=== PATIENT | male | born 1950 | race Caucasian/White ===

== ENCOUNTER 2023-12-30 01:58 | Inpatient (IN) | payer MEDICARE, OTHER, SELFPAY ==
[2023-12-29 19:48] VITALS: BP 102/70
[2023-12-29 20:41] VITALS: BMI 31.2
[2023-12-29 21:10] LABS: % Basophils 0.4 % (0-2); % Eosinophils 0.5 % (0-6); % Immature Granulocytes 0.4 % (0-0.5); % Lymphocytes 11.9 % (20.5-51.1); % Monocytes 8.4 % (1.7-9.3); % Neutrophils 78.4 % (42.2-75.2); Absolute Basophils 0.1 10^3/uL (0-0.2); Absolute Eosinophils 0.1 10^3/uL (0-0.7); Absolute Immature Granulocytes 0.1 10^3/uL (0-0.05); Absolute Lymphocytes 1.4 10^3/uL (1.2-3.4); Absolute Neutrophils 9.1 10^3/uL (1.4-6.5); Hematocrit 42.1 % (39.0-52.0); Mean Corp Hgb Conc. 35.6 g/dL (33.0-37.0); Mean Corpuscular Volume 81.3 fL (80.0-94.0); Mean Platelet Volume 9.1 fL (7.4-10.4); Nucleated Red Blood Cells % 0 % (-); Platelet Count 164 10^3/uL (130-400); Red Blood Cell Count 5.18 10^6/uL (4.70-6.10); Red Cell Dist. Width 13.5 % (11.5-14.5); White Blood Cell Count 11.6 10^3/uL (4.8-10.8)
[2023-12-29 21:25] LABS: ALT (SGPT) 13 U/L (0-50); AST (SGOT) 18 U/L (17-59); Albumin 4.7 g/dl (3.5-5.0); Alkaline Phosphatase 62 U/L (38-126); Blood Urea Nitrogen 18 mg/dl (9-20); Calcium 9.7 mg/dl (8.4-10.2); Carbon Dioxide 24 mmol/L (22-30); Chloride 99 mmol/L (98-107); Estimated Creatinine Clearance 95 ml/min; Glucose 103 mg/dl (70-99); Lipase 27 U/L (23-300); Potassium 3.8 mmol/L (3.5-5.1); Sodium 133 mmol/L (135-145); Total Bilirubin 5.9 mg/dl (0.2-1.3); Total Protein 7.4 g/dl (6.3-8.2); eGFR > 60.00
[2023-12-29 21:51] LABS: Urine Albumin Trace (Neg - Trace); Urine Bilirubin 1+ (Negative); Urine Character Clear (Clear); Urine Color Amber; Urine Glucose Negative (Negative); Urine Ketone 2+ (Negative); Urine Leukocyte Negative (Negative); Urine Nitrite Negative (Negative); Urine Occult Blood 3+ (Negative); Urine Urobilinogen Negative (Neg - 1+)
[2023-12-29 22:00] VITALS: BP 138/70
--- NOTE | 2023-12-29 22:00 | ED.GENMED ---
History of Present Illness
<Juvenal Luciano DO - Last Filed: 12/31/23 10:31>
General
Chief Complaint: Abdominal Pain
Source: patient and spouse
Exam Limitations: none
Time Seen by Provider: 12/29/23 21:10
Nursing documentation reviewed up to this point in time: agreed with
History of Present Illness
History of Present Illness:
72-year-old male presents emergency department complaining 3 to 4 days left lower quadrant abdominal pain, feeling similar to his diverticulitis. He started taking amoxicillin to treat an infection. He had some leftover.
Past History
<Juvenal Luciano DO - Last Filed: 12/31/23 10:31>
Past History
ED Past Medical History: HTN; Negative Asthma, Hypercholesterolemia or NIDDM
ED Past Surgical History: Other (Hemorrhoids)
Social History
Tobacco: Non-smoker
Alcohol: Occasional
Drug: None
Personal:
Living: with family
Employment: Employed
Family History
Family History: Other (reviewed and noncontributory)
Review of Systems
<Juvenal Luciano DO - Last Filed: 12/31/23 10:31>
Review of Systems
Allergies reviewed?: Yes
All Other Systems: Not applicable
Constitutional: Reports fever
EENT: Reports no symptoms
Respiratory: Reports no symptoms
Cardiac: Reports no symptoms
ABD/GI: Reports abdominal pain, vomiting and diarrhea
: Reports no symptoms
Musculoskeletal: Reports no symptoms
Skin: Reports no symptoms
Neurological: Reports no symptoms
Endocrine: Reports no symptoms
Hematologic/Lymphatic: Reports no symptoms
Psychiatric: Reports no symptoms
Phy Exam
<Juvenal Luciano DO - Last Filed: 12/31/23 10:31>
Physical Exam
Physical Exam:
Physical Exam
General: Appears uncomfortable, temperature 100.9
Neck: supple. no meningeal signs. normal posterior pharynx
Heart: s1/s2 regular rate and rhythm, no murmur. equal radial
pulses.
HEENT: Pupils equal round reactive to light, EOMI
Lungs: no acute respiratory distress. clear bilaterally
Abdomen: normal bowel sounds. Left lower quadrant tenderness
Neuro: alert and oriented. no focal neurological deficits
Skin: no rash
Psychiatric: well kept. interactive and cooperative
Extremities: no edema. no calf tenderness. negative homans. good distal pulses
Course
<Juvenal Luciano, DO - Last Filed: 12/31/23 10:31>
Orders/Labs/Results
Orders:
Orders
12/29/23 20:55
CMP [Comprehensive Metabolic Panel] Urgent
Complete Blood Count/With Diff Urgent
Lipase Urgent
12/29/23 21:19
CT Abd/pelvis W Iv Cont Urgent
Comment:
Reason For Exam: LLQ abd pain, fever
12/29/23 21:42
Urinalysis Reflex To Culture Urgent
Date Specimen was Collected: 12/29/23
Time Specimen was Collected: 21:38
Urine Microscopic Reflex Cult Urgent
12/29/23 22:41
Acetaminophen [Tylenol] 650 mg PO NOW STA
Ondansetron Injectable [Zofran] 4 mg IV NOW STA
12/29/23 23:53
Piperacillin/Tazo 4.5 Gram [Zosyn] 4.5 gram in 100 ml IV NOW
12/30/23 01:44
Admit/Transfer Patient As Directed
Co-Sign Provider:
Level of Care: Inpatient admission
Assign to:: Medical/Surgical
Physician / Group: [facility]
Diagnosis: Acute Diverticulitis
Reason for Hospitalization: Acute Diverticulitis
Expected length of stay greater than two midnights?: Yes
ELOS- Estimated Length of Stay in days: 3
I certify the patient meets the requirements for IP care: Yes
PRN Pain Medication Management As Directed
May give lesser potent ordered pain med per pt: Yes
preference::
Protocol:: Medication orders for pain may be administered in a
manner that supports deferring to patient preference
when the pt is:
- Requesting an ordered lesser potent pain medication.
Least to most potent pain medications are defined
as: acetaminophen < NSAID < tramadol < opioids
(morphine, oxycodone, hydromorphone).
- Requesting a lesser dose of the same medication IF
ORDERED.
- Requesting a less intrusive route of administration
if both routes are prescribed by the provider (PO <
IV).
12/30/23 01:46
Code Status As Directed
Resuscitation Status: Full Code
12/30/23 02:44
Acetaminophen [Tylenol] 650 mg PO Q4HPRN PRN
HYDROmorphone [Dilaudid] 0.5 mg IV Q4HPRN PRN
Ketorolac [Toradol] 15 mg IV Q6HPRN PRN
Lactated Ringers [Lr] 1,000 ml IV 100 mls/hr
Ondansetron Injectable [Zofran] 4 mg IV Q6HPRN PRN
12/30/23 02:44
ColoRectal Surgery Consult Routine
Consulting Provider: Shade Oliveira
Was physician already notified: No
Reason for consult: Acute Diverticulitis
Consult Notification Routine
Specialty to Notify: Colorectal Surgery
Date consulting provider notified: 12/30/23
Time consulting provider notified: 07:58
Notified:: Provider
Comment: ANASTASIIA OLIVEIRA
Activity As Directed
Activity Level: Ambulate
With Assistance
Bladder Scan As Directed
Follow Bladder Retention/Intermittent Cath Algorithm?: Yes
PRN if no void in __ hours: 6
Frequency: Per Retention Algorithm
If Bladder Scan Result >: 400
then:: Straight cath
I/O [Intake/ Output] As Directed
Frequency: Per unit guidelines
Pneumatic Compression Sleeves As Directed
Type: Knee high
Straight Cath As Directed
Frequency: Per Retention Algorithm
Additional Instructions: straight cath as needed per acute urinary retention algorithm for 24 hrs
Additional Instructions: for bladder scan greater than 400 mL
Vital Signs As Directed
Frequency: Per unit guidelines
Oxygen Therapy [O2 Therapy] [RESP] Routine
Titrate/Wean O2 to maintain O2 sat greater than (%): 94
DX Deep Vein Thrombosis Video Routine
12/30/23 Breakfast
NPO
Allow oral meds: Yes
Allow clear liquids: Sips of Clears
Piperacillin/Tazo 3.375 Gram [Zosyn] 3.375 gram in 50 ml IV Q6H
12/30/23 08:00
Amlodipine [Norvasc] 5 mg PO DAILY
Atorvastatin [Lipitor] 10 mg PO DAILY
Levothyroxine [Synthroid] 137 mcg PO DAILY
Losartan [Cozaar] 75 mg PO DAILY
Prednisone [Deltasone] 7.5 mg PO DAILY
12/30/23 11:10
Basic Metabolic Panel IN AM
Complete Blood Count/No Diff IN AM
12/30/23 18:00
Enoxaparin Sodium [Lovenox] 40 mg SC QPM
Abnormal Lab Results
12/29/23 12/29/23
20:55 21:42
WBC 11.6 H 10^3/uL
(4.8-10.8)
Abs Immat Gran (auto) 0.1 H 10^3/uL
(0-0.05)
Absolute Neuts (auto) 9.1 H 10^3/uL
(1.4-6.5)
Absolute Monos (auto) 1.0 H 10^3/uL
(0.1-0.6)
Neutrophils % 78.4 H %
(42.2-75.2)
Lymphocytes % 11.9 L %
(20.5-51.1)
Sodium 133 L mmol/L
(135-145)
Glucose 103 H mg/dl
(70-99)
Total Bilirubin 5.9 H mg/dl
(0.2-1.3)
Urine Ketones 2+ A
(Negative)
Ur Occult Blood Reflex 3+ A
(Negative)
Urine Bilirubin 1+ A
(Negative)
12/29/23 20:55
12/29/23 20:55
Vital Signs
Initial and Last Documented VS:
Initial Vital Signs
Temp Pulse Resp BP Pulse Ox
100.9 F H 84 24 102/70 97
12/29/23 19:48 12/29/23 19:48 12/29/23 19:48 12/29/23 19:48 12/29/23 19:48
Last Documented Vital Signs
Temp Pulse Resp BP Pulse Ox
99.4 F 81 18 137/78 94
12/31/23 07:44 12/31/23 07:44 12/31/23 07:44 12/31/23 07:44 12/31/23 07:44
Rolalt;Star Tomlinson, DO - Last Filed: 12/30/23 07:03>
Orders/Labs/Results
Orders:
Orders
12/29/23 20:55
CMP [Comprehensive Metabolic Panel] Urgent
Complete Blood Count/With Diff Urgent
Lipase Urgent
12/29/23 21:19
CT Abd/pelvis W Iv Cont Urgent
Comment:
Reason For Exam: LLQ abd pain, fever
12/29/23 21:42
Urinalysis Reflex To Culture Urgent
Date Specimen was Collected: 12/29/23
Time Specimen was Collected: 21:38
Urine Microscopic Reflex Cult Urgent
12/29/23 22:41
Acetaminophen [Tylenol] 650 mg PO NOW STA
Ondansetron Injectable [Zofran] 4 mg IV NOW STA
12/29/23 23:53
Piperacillin/Tazo 4.5 Gram [Zosyn] 4.5 gram in 100 ml IV NOW
12/30/23 01:44
Admit/Transfer Patient As Directed
Co-Sign Provider:
Level of Care: Inpatient admission
Assign to:: Medical/Surgical
Physician / Group: [facility]
Diagnosis: Acute Diverticulitis
Reason for Hospitalization: Acute Diverticulitis
Expected length of stay greater than two midnights?: Yes
ELOS- Estimated Length of Stay in days: 3
I certify the patient meets the requirements for IP care: Yes
PRN Pain Medication Management As Directed
May give lesser potent ordered pain med per pt: Yes
preference::
Protocol:: Medication orders for pain may be administered in a
manner that supports deferring to patient preference
when the pt is:
- Requesting an ordered lesser potent pain medication.
Least to most potent pain medications are defined
as: acetaminophen < NSAID < tramadol < opioids
(morphine, oxycodone, hydromorphone).
- Requesting a lesser dose of the same medication IF
ORDERED.
- Requesting a less intrusive route of administration
if both routes are prescribed by the provider (PO <
IV).
12/30/23 01:46
Code Status As Directed
Resuscitation Status: Full Code
12/30/23 02:44
Acetaminophen [Tylenol] 650 mg PO Q4HPRN PRN
HYDROmorphone [Dilaudid] 0.5 mg IV Q4HPRN PRN
Ketorolac [Toradol] 15 mg IV Q6HPRN PRN
Lactated Ringers [Lr] 1,000 ml IV 100 mls/hr
Ondansetron Injectable [Zofran] 4 mg IV Q6HPRN PRN
12/30/23 02:44
ColoRectal Surgery Consult Routine
Consulting Provider: Shade Oliveira
Was physician already notified: No
Reason for consult: Acute Diverticulitis
Consult Notification Routine
Specialty to Notify: Colorectal Surgery
Date consulting provider notified: 12/30/23
Time consulting provider notified: 07:58
Notified:: Provider
Comment: ANASTASIIA OLIVEIRA
Activity As Directed
Activity Level: Ambulate
With Assistance
Bladder Scan As Directed
Follow Bladder Retention/Intermittent Cath Algorithm?: Yes
PRN if no void in __ hours: 6
Frequency: Per Retention Algorithm
If Bladder Scan Result >: 400
then:: Straight cath
I/O [Intake/ Output] As Directed
Frequency: Per unit guidelines
Pneumatic Compression Sleeves As Directed
Type: Knee high
Straight Cath As Directed
Frequency: Per Retention Algorithm
Additional Instructions: straight cath as needed per acute urinary retention algorithm for 24 hrs
Additional Instructions: for bladder scan greater than 400 mL
Vital Signs As Directed
Frequency: Per unit guidelines
Oxygen Therapy [O2 Therapy] [RESP] Routine
Titrate/Wean O2 to maintain O2 sat greater than (%): 94
DX Deep Vein Thrombosis Video Routine
12/30/23 Breakfast
NPO
Allow oral meds: Yes
Allow clear liquids: Sips of Clears
Piperacillin/Tazo 3.375 Gram [Zosyn] 3.375 gram in 50 ml IV Q6H
12/30/23 08:00
Amlodipine [Norvasc] 5 mg PO DAILY
Atorvastatin [Lipitor] 10 mg PO DAILY
Levothyroxine [Synthroid] 137 mcg PO DAILY
Losartan [Cozaar] 75 mg PO DAILY
Prednisone [Deltasone] 7.5 mg PO DAILY
12/30/23 11:10
Basic Metabolic Panel IN AM
Complete Blood Count/No Diff IN AM
12/30/23 18:00
Enoxaparin Sodium [Lovenox] 40 mg SC QPM
Abnormal Lab Results
12/29/23 12/29/23
20:55 21:42
WBC 11.6 H 10^3/uL
(4.8-10.8)
Abs Immat Gran (auto) 0.1 H 10^3/uL
(0-0.05)
Absolute Neuts (auto) 9.1 H 10^3/uL
(1.4-6.5)
Absolute Monos (auto) 1.0 H 10^3/uL
(0.1-0.6)
Neutrophils % 78.4 H %
(42.2-75.2)
Lymphocytes % 11.9 L %
(20.5-51.1)
Sodium 133 L mmol/L
(135-145)
Glucose 103 H mg/dl
(70-99)
Total Bilirubin 5.9 H mg/dl
(0.2-1.3)
Urine Ketones 2+ A
(Negative)
Ur Occult Blood Reflex 3+ A
(Negative)
Urine Bilirubin 1+ A
(Negative)
12/29/23 20:55
12/29/23 20:55
Vital Signs
Initial and Last Documented VS:
Initial Vital Signs
Temp Pulse Resp BP Pulse Ox
100.9 F H 84 24 102/70 97
12/29/23 19:48 12/29/23 19:48 12/29/23 19:48 12/29/23 19:48 12/29/23 19:48
Last Documented Vital Signs
Temp Pulse Resp BP Pulse Ox
99.4 F 81 18 137/78 94
12/31/23 07:44 12/31/23 07:44 12/31/23 07:44 12/31/23 07:44 12/31/23 07:44
<Juvenal Luciano, DO - Last Filed: 12/31/23 10:31>
MDM/Problems Addressed
Differential Diagnosis Includes:
Diverticulitis, bowel perforation
MDM/Problems Addressed:
73-year-old male with acute sigmoid diverticulitis with perforation, but no abscess. 5 cm AAA.
Chronic conditions affecting care: Other (Diverticulosis)
Acute Exacerbation and/or Progression of Chronic Illness: Other (Diverticulitis)
<Juvenal Luciano, DO - Last Filed: 12/31/23 10:31>
*Radiology
Radiology exam reviewed: radiology read reviewed (CT abdomen pelvis shows acute sigmoid diverticulitis with perforation but no abscess, infrarenal AAA 5 cm)
*Pulse Oximetry
Patient hypoxic: no
*EKG
Interpreted by ED Provider?: NA
*Automobile Lights Assembler Interpretation
Rate: Automobile Lights Assembler- N/A
<Star Tomlinson, DO - Last Filed: 12/30/23 07:03>
*Critical Care Note
Total Time (30-74mins, 75-104mins- exclusive of procedures): Not Applicable
<Juvenal Luciano, DO - Last Filed: 12/31/23 10:31>
Patient Management
Social determinants of health affecting care: Living situation
Discussion with other providers: Hospitalist
Escalation/DeEscalation of care consider admission/obs:
Admit indicated
<Star Tomlinson DO - Last Filed: 12/30/23 07:03>
Update Note
Update Note:
CT A/P
IMPRESSION:
Within the limitation of extensive motion artifact:
Acute sigmoid diverticulitis, with extensive associated inflammatory stranding and edema. Localized foci of free air along the inflamed diverticula is consistent with associated microperforations (204: 31).
No evidence of more disseminated free air seen elsewhere. No evidence of a focal organized rim-enhancing fluid collection.
Diffusely fluid for loops of large bowel may represent a super mposed component of colitis as well.
Interval increase in size of a now 5.3 cm infrarenal abdominal aortic aneurysm with eccentric mural thrombus (previously 5 cm on 03/23/2023). Follow-up with vascular surgery is recommended.
Additional findings: Right hip arthroplasty. Vascular calcifications including coronary artery calcifications. DJD. Left renal calculus.
ED Attending Note
<Juvenal Luciano, DO - Last Filed: 12/31/23 10:31>
-
Portions of this chart may have been created with voice recognition software.� Occasional wrong word or��sound alike� substitutions may have occurred due to the inherent limitations of voice recognition software.
Discharge Plan
Departure
Patient Disposition: Admit
Date of Disposition: 12/29/23
Time of Disposition: 23:53
Presentation/result/management discussed w/ accepting MD/DO: Hospitalist
Patient with high blood pressure during this ER visit?: Yes
Discharge Problem:
Diverticulitis, Enlarging abdominal aortic aneurysm
Interventions
Interventions:
*Risk Screen - Suicide Last Done: 12/29/23 19:48
*General Assessment Last Done: 12/29/23 20:41
*Neglect/Abuse Screening Last Done: 12/29/23 19:48
ED- Fall Risk Assessment Last Done: 12/29/23 20:42
*ED COVID-19 Vaccine History Last Done: 12/29/23 20:41
*Nursing Disposition Last Done: 12/30/23 02:40
QV-Ksgyrj-Gbwcykyrxe Assessment Last Done: 12/29/23 20:42
Discharge Date and Time
Discharge Date/Time: 12/30/23 02:40
[2023-12-29 22:01] LABS: Urine Red Blood Cell 0-2 /HPF (0-2); Urine White Cell 0-2 /HPF (0-5)
[2023-12-29] MEDS: TYLENOL 650 MG PO (22:54)
[2023-12-29] MEDS: ZOFRAN 4 MG IV (22:54)
[2023-12-29 23:00] VITALS: BP 112/60
[2023-12-30] VITALS: BP 125/77
[2023-12-30] MEDS: ZOSYN 100 IV (00:03)
--- NOTE | 2023-12-30 01:48 | HPS.HSE ---
Family Physician
-
Family Physician: Dale Lr
Chief Complaint
-
Abd Pain
History of Present Illness
Patient is a 73y M with PMH significant for malignant melanoma s/p immunotherapy who presents to ED complaining of abdominal pain. Patient reports about 3-5 days of lower / middle abdominal pain. His symptoms are associated with nausea and a
single episode of emesis yesterday. He has been having some loose, non-bloody stools today. He feels 'terrible' and achy all over. Patient notes that he has been eating a lot of blueberries lately. No other significant changes in medication or
diet.
Patient has a prior history of diverticulitis and notes that his current symptoms feel similar.
Medical History
Past Medical History
Past Medical History: Reports Other
Additional Past Medical History:
Malignant Melanoma s/p Excision and Immunotherapy
Hypertension
Adrenal Insufficiency
Hypothyroidism
ZE
Gilbert's / Elevated Bilirubin
Past Surgical History: Reports Other
Additional Past Surgical History:
Neck Dissection / Melanoma Excision
Left Quadriceps Repair
R PHYLLIS
Social History
Tobacco: Non-smoker
Alcohol: None
Drug: None
Family History
Family History: Not pertinent
Allergies / Home Medications
Allergies reflects when Allergies were last updated in [facility].
Home Medications with original date entered in [facility]
Allergy/Medication List:
Allergies
Allergy/AdvReac Type Severity Reaction Status Date / Time
lisinopril AdvReac COUGH Verified 12/29/23 19:52
Home Medications
atorvastatin 10 mg tablet 10 mg PO DAILY High cholesterol 03/14/21
prednisone 5 mg tablet 7.5 mg PO DAILY Anti-Inflammatory 03/23/23
levothyroxine 125 mcg tablet 125 mcg PO DAILY Thyroid 04/16/23
mupirocin 2 % topical ointment 1 applic intranasal BID #1 tube 04/22/23
amlodipine 5 mg tablet 5 mg PO DAILY Blood pressure #0 tabs 05/17/23
losartan 50 mg tablet 75 mg (1.5 x 50 mg) PO DAILY Blood Pressure #0 tabs 05/17/23
pantoprazole 40 mg tablet,delayed release 40 mg PO DAILY #30 tabs 05/17/23
levothyroxine 137 mcg tablet 137 mcg PO DAILY 12/29/23
losartan 50 mg tablet 75 mg PO DAILY 12/29/23
If medication reconciliation has not been performed, why?: Medication List N/A (Patient is unable to fully reconcile all meds. Knows names / doses of his hormonal supplements.)
Review of Systems
-
History Source: Patient
A 12 point ROS was completed and negative except as noted: Yes
Constitutional: Reports Fever, Fatigue and Chills
EENT: Denies Sore Throat
Respiratory: Denies Cough or Trouble Breathing
Cardiac: Denies Chest Pain or Palpitations
Abdomen/GI: Reports Abdominal Pain, Nausea, Vomiting, Diarrhea and Anorexia; Denies Constipated, Bloody Stools or Black Stools
: Denies Dysuria, Frequency or Flank Pain
Musculoskeletal: Denies Joint Pain or Edema
Neurological: Denies Dizzy or Headache
Psych: Denies Depression or Anxiety
Physical Exam
Vital Signs
Vital Signs
Temp Pulse Resp BP Pulse Ox
100.3 F 73 18 112/60 94
12/29/23 23:00 12/29/23 23:00 12/29/23 23:00 12/29/23 23:00 12/29/23 23:45
Physical Exam
General: Other (73y M in mild distress due to pain.)
HEENT: Other (Dry MM. Neck supple.)
Respiratory: Clear; No Wheezes, Rales or Rhonchi
Cardiac: S1/S2 and Regular Rhythm; No Murmur
GI: Other (Obese, pos BS. Significant tenderness lower mid abdomen / suprapubic region.)
Musculoskeletal: No Clubbing, No Cyanosis and No Edema
Neuro: AO x 3
Laboratory Results
-
12/29/23 20:55
12/29/23 20:55
Laboratory Results
Total Bilirubin 5.9 mg/dl (0.2-1.3) H 12/29/23 20:55
AST 18 U/L (17-59) 12/29/23 20:55
ALT 13 U/L (0-50) 12/29/23 20:55
Alkaline Phosphatase 62 U/L (38-126) 12/29/23 20:55
Lipase 27 U/L (23-300) 12/29/23 20:55
Impression/Plan
-
A/P: Patient is a 73y M with PMH significant for malignant melanoma in remission and prior diverticulitis who presents to ED complaining of abdominal pain.
Acute Sigmoid Diverticulitis
- Admit for further evaluation and treatment.
- CT scan reveals evidence of local microperf, etc.
- IV abx with Zosyn for now.
- IVFs, pain control, supportive care.
- Colorectal Surgery evaluation for additional recommendations.
- Follow for any new / worsening symptoms.
Adrenal Insufficiency
- Reportedly secondary to immunotherapy / cancer treatment.
- Continue current prednisone replacement dosing for now.
- Consider brief stress dosing of steroids if any hemodynamic issues during hospital stay.
Hypothyroidism
- Continue current T4 replacement.
Benign Hypertension
- Stable. Continue OP medications and adjust as needed fo BP control.
Malignant Melanoma - In Remission
- s/p excision / neck dissection and immunotherapy.
- No longer on active treatment.
- No acute / active issues.
DVT Prophylaxis: Lovenox
Code Status: Full
[2023-12-30 03:06] VITALS: BP 128/74; BMI 30.2
[2023-12-30] MEDS: ZOFRAN 4 MG IV ×4 (03:11→22:35)
[2023-12-30] MEDS: LR 1000 IV ×2 (03:11→13:56)
[2023-12-30] MEDS: DILAUDID 0.5 MG IV ×3 (03:11→11:55)
--- NOTE | 2023-12-30 03:44 | PTCARENOTE ---
Pt arrived to floor via stretcher from the ED. Pt AAOx3, pt able to ambulate with assist to standing scale and into room. Pt reports severe abd pain 8/10, once laying in bed, pt began to vomit and have uncontrolled liquid stool. Pt cleaned up,
linens changed. PRN medications administered as ordered, see MAR. Left AC int now infusing LR @100ml/hr. Hyper bowel, round tender abd. POX 99% on RA. Lungs clear. HR reg. Palpable peripheral pulses present. Call castañeda in reach. Pt instructed to ring
call castañeda for assistance. Knee high seq in place. Will continue to monitor.
[2023-12-30] MEDS: ZOSYN 50 IV ×4 (05:26→23:22)
--- NOTE | 2023-12-30 06:24 | PTCARENOTE ---
Pt ambulatory to bathroom when needed. Pt has urgency and severe abd pain prior to needing to move bowels, pt has very little time to get to bathroom. Pt reports once settled back in bed, pain feels better. IVF infusing as ordered. will continue to
monitor.
[2023-12-30] MEDS: NORVASC 5 MG PO (07:53)
[2023-12-30] MEDS: LIPITOR 10 MG PO (07:53)
[2023-12-30] MEDS: DELTASONE 7.5 MG PO (07:53)
[2023-12-30] MEDS: COZAAR 75 MG PO (07:54)
[2023-12-30] MEDS: SYNTHROID 137 MCG PO (07:54)
[2023-12-30 08:10] VITALS: BP 126/65
--- NOTE | 2023-12-30 08:55 | W.PN.HOSP.TC ---
Today's Communication/Plan
-
Continue IV antibiotics.
Assessment / Plan
Assessment / Plan
Physical exam:
General: Acutely ill
HEENT: Normocephalic, Atraumatic and Moist Mucous Membranes
Respiratory: Clear to Auscultation; Negative Wheezes, Rales or Rhonchi
Cardiac: Regular Rhythm and S1/S2
GI: Soft, Tender and Nondistended
Musculoskeletal: No Clubbing, No Cyanosis and No Edema
Neuro: Awake, Alert and Oriented, no gross neuro-deficits
Psych: Calm
A/P:
Acute Sigmoid Diverticulitis
- Admit for further evaluation and treatment.
- CT scan reveals evidence of local microperf, etc.
- IV abx with Zosyn for now.
- IVFs, pain control, supportive care.
- Colorectal Surgery evaluation for additional recommendations. CRS evaluated the patient and appreciated input.
- Follow for any new / worsening symptoms. Keep him n.p.o. for now.
Adrenal Insufficiency
- Reportedly secondary to immunotherapy / cancer treatment.
- Continue current prednisone replacement dosing for now.
- Consider brief stress dosing of steroids if any hemodynamic issues during hospital stay.
Hypothyroidism
- Continue current T4 replacement.
Benign Hypertension
- Stable. Continue OP medications and adjust as needed fo BP control.
Malignant Melanoma - In Remission
- s/p excision / neck dissection and immunotherapy.
- No longer on active treatment.
- No acute / active issues.
DVT Prophylaxis: Lovenox
Code Status: Full
Anticipated Discharge: > 48 hours
Subjective/Interval History
-
Date of Service: December 30, 2023
Patient still having some abdominal discomfort. He had some vomiting earlier. Overall patient feels some improvement. Afebrile today
Objective Data
-
Labs:
Laboratory Results
12/29/23 12/30/23
20:55 06:00
WBC 11.6 H Pending
Hgb 15.0 Pending
Hct 42.1 Pending
Plt Count 164 Pending
Sodium 133 L Pending
Potassium 3.8 Pending
Chloride 99 Pending
Carbon Dioxide 24 Pending
BUN 18 Pending
Creatinine 0.9 Pending
Glucose 103 H Pending
Calcium 9.7 Pending
Total Bilirubin 5.9 H
AST 18
ALT 13
Alkaline Phosphatase 62
Vital Signs:
Vital Signs
Temp Pulse Resp BP Pulse Ox
98.3 F 63 17 126/65 92
12/30/23 08:10 12/30/23 08:10 12/30/23 08:10 12/30/23 08:10 12/30/23 08:10
I&O
12/29/23 12/30/23 12/31/23
06:59 06:59 06:59
Intake Total 450 / 450
Balance 450 / 450
[2023-12-30 11:37] LABS: Hematocrit 41.8 % (39.0-52.0); Hemoglobin 14.8 g/dL (13.0-18.0); Mean Corp Hgb Conc. 35.4 g/dL (33.0-37.0); Mean Corpuscular Hgb 29.4 pg (27.0-31.0); Mean Corpuscular Volume 83.1 fL (80.0-94.0); Mean Platelet Volume 9.7 fL (7.4-10.4); Platelet Count 161 10^3/uL (130-400); Red Blood Cell Count 5.03 10^6/uL (4.70-6.10); Red Cell Dist. Width 13.7 % (11.5-14.5); White Blood Cell Count 14.7 10^3/uL (4.8-10.8)
--- NOTE | 2023-12-30 12:19 | CON.CRS ---
Consultation
-
Reason for Consultation: Diverticulitis
Medical History
-
Chief Complaint: Abdominal pain
History of Present Illness:
73-year-old male admitted to the hospital yesterday with abdominal pain as well as some nausea and 1 bout of emesis. He also admits to some loose BMs. He has a history of diverticulitis and was admitted for this back in March 2023. At that
point time he was seen by Dr. Ross. On my own review of the CT from back then he had distal descending colon diverticulitis with microperforation. He improved with medical measures. He is here with similar symptoms. He admits to left lower
quadrant pain. His white count on admission yesterday was 11.6. It got up to 14.7 today. His current only complaint is pain/discomfort. He did undergo a CT of the abdomen pelvis yesterday of which the images and report available for review. I
reviewed both. Sigmoid diverticulitis is noted with microperforation. In regards to colonoscopies, the patient admits he had a colonoscopy in May of this year by Dr. Cotter of the [facility]. Per the patient it was 'negative
'. Is unclear whether diverticulosis was noted.
Past Medical History
Past Medical History: HTN, Hypothyroidism and Other (Malignant melanoma status post excision and immunotherapy; adrenal insufficiency; Gilbert's syndrome)
Past Surgical History: Other (Melanoma excision with neck dissection; left quadriceps repair; right hip surgery)
Social History
Tobacco: Non-Smoker
Alcohol: None
Family History
Family History: Reviewed & Not Pertinent
Allergies / Home Medications
Allergy/AdvReac Type Severity Reaction Status Date / Time
lisinopril AdvReac COUGH Verified 12/29/23 19:52
�Medication �Instructions �Recorded �Confirmed �Type
atorvastatin 10 mg tablet 10 mg PO DAILY High cholesterol 03/14/21 12/29/23 History
prednisone 5 mg tablet 7.5 mg PO DAILY Anti-Inflammatory 03/23/23 05/17/23 History
celecoxib 100 mg capsule 100 mg PO BID Pain 04/16/23 05/17/23 History
levothyroxine 125 mcg tablet 125 mcg PO DAILY Thyroid 04/16/23 05/17/23 History
mupirocin 2 % topical ointment 1 applic intranasal BID #1 tube 04/22/23 Rx
ondansetron 4 mg disintegrating 4 mg PO Q6H PRN nausea and 04/22/23 Rx
tablet vomiting #30 tabs
oxycodone 5 mg tablet 5 - 10 mg (1 - 2 x 5 mg) PO Q4H 04/22/23 Rx
PRN moderate-severe pain #35 tabs
acetaminophen 500 mg tablet 1,000 mg (2 x 500 mg) PO Q6H #60 05/17/23 Rx
(Tylenol Extra Strength) tabs
amlodipine 5 mg tablet 5 mg PO DAILY Blood pressure #0 05/17/23 12/29/23 Rx
tabs
aspirin 325 mg tablet 325 mg PO DAILY #30 tabs 05/17/23 Rx
docusate sodium 100 mg capsule 100 mg PO BID #30 caps 05/17/23 Rx
hydrocortisone 20 mg tablet 20 mg PO DIRECTED #1 tab 05/17/23 Rx
lidocaine 4 % topical patch 2 patch topical DAILY #30 ea 05/17/23 Rx
losartan 50 mg tablet 75 mg (1.5 x 50 mg) PO DAILY Blood 05/17/23 05/17/23 Rx
Pressure #0 tabs
pantoprazole 40 mg tablet,delayed 40 mg PO DAILY #30 tabs 05/17/23 Rx
release
sennosides 8.6 mg tablet (senna) 17.2 mg (2 x 8.6 mg) PO BID #30 05/17/23 Rx
tabs
levothyroxine 137 mcg tablet 137 mcg PO DAILY 12/29/23 12/29/23 History
losartan 50 mg tablet 75 mg PO DAILY 12/29/23 12/29/23 History
Review of Systems
-
A 10 point review of systems was completed, and was negative except as per HPI.
Physical Exam
Vital Signs
Temp 98.3 F 12/30/23 08:10
Pulse 63 12/30/23 08:10
Resp Rate 17 12/30/23 08:10
Blood pressure 126/65 12/30/23 08:10
SaO2 92 12/30/23 08:10
12/29/23 12/30/23 12/31/23
06:59 06:59 06:59
Actual Weight 100.924 kg
Body Mass Index (BMI) 30.2
Lab Results / Allergies
12/30/23 11:10
WBC 14.7 10^3/uL (4.8-10.8) H 12/30/23 11:10
Hgb 14.8 g/dL (13.0-18.0) 12/30/23 11:10
Hct 41.8 % (39.0-52.0) 12/30/23 11:10
Plt Count 161 10^3/uL (130-400) 12/30/23 11:10
Abs Immat Gran (auto) 0.1 10^3/uL (0-0.05) H 12/29/23 20:55
Neutrophils % 78.4 % (42.2-75.2) H 12/29/23 20:55
Allergy/AdvReac Type Severity Reaction Status Date / Time
lisinopril AdvReac COUGH Verified 12/29/23 19:52
Physical Exam
General: Well Developed
Respiratory: Clear
Cardiac: Regular Rhythm
GI: Non Distended and Tender (Lower abdominal without guarding or rebound)
Data Reviewed
-
CT Scan: Image Personally Visualized and interpreted, Report Reviewed by me and Discussed with Patient
Labs: Labs Reviewed by me and Discussed with Patient
Assessment / Plan
-
73-year-old male with second episode of diverticulitis with microperforation. Interestingly his prior attack was in the distal descending whereas this attack is more sigmoid. He is tender on exam but does not have a surgical abdomen. I am hoping
he can get through this hospitalization without urgent surgery. Discussed situation with the patient in detail. Recommended aggressive medical measures as is being performed including IV hydration, diet restriction, and IV antibiotics. Will
follow along closely.
Thanks.
[2023-12-30 12:53] LABS: Blood Urea Nitrogen 20 mg/dl (9-20); Calcium 9.3 mg/dl (8.4-10.2); Carbon Dioxide 20 mmol/L (22-30); Chloride 100 mmol/L (98-107); Estimated Creatinine Clearance 104 ml/min; Glucose 90 mg/dl (70-99); Potassium 3.6 mmol/L (3.5-5.1); Sodium 131 mmol/L (135-145); eGFR > 60.00
[2023-12-30 15:37] VITALS: BP 101/60
[2023-12-30] MEDS: TORADOL 15 MG IV ×2 (17:03→23:21)
[2023-12-30] MEDS: LOVENOX 40 MG SC (17:04)
[2023-12-30 19:50] LABS: Hepatitis C Antibody Negative (Negative)
[2023-12-30 23:05] VITALS: BP 137/79
[2023-12-31] MEDS: LR 1000 IV ×3 (01:12→20:47)
[2023-12-31] MEDS: ZOSYN 50 IV ×4 (06:10→23:35)
[2023-12-31] MEDS: DILAUDID 0.5 MG IV ×3 (06:41→17:55)
[2023-12-31 06:42] LABS: % Basophils 0.4 % (0-2); % Eosinophils 0.8 % (0-6); % Immature Granulocytes 0.3 % (0-0.5); % Lymphocytes 7.9 % (20.5-51.1); % Monocytes 8.5 % (1.7-9.3); % Neutrophils 82.1 % (42.2-75.2); Absolute Eosinophils 0.1 10^3/uL (0-0.7); Absolute Lymphocytes 0.9 10^3/uL (1.2-3.4); Absolute Neutrophils 9.2 10^3/uL (1.4-6.5); Hematocrit 38.9 % (39.0-52.0); Mean Corpuscular Hgb 29.8 pg (27.0-31.0); Mean Corpuscular Volume 82.8 fL (80.0-94.0); Mean Platelet Volume 9.4 fL (7.4-10.4); Nucleated Red Blood Cells % 0 % (-); Platelet Count 144 10^3/uL (130-400); Red Cell Dist. Width 13.4 % (11.5-14.5); White Blood Cell Count 11.2 10^3/uL (4.8-10.8)
[2023-12-31 07:12] LABS: Blood Urea Nitrogen 27 mg/dl (9-20); Calcium 9.4 mg/dl (8.4-10.2); Carbon Dioxide 22 mmol/L (22-30); Chloride 99 mmol/L (98-107); Estimated Creatinine Clearance 93 ml/min; Glucose 96 mg/dl (70-99); Potassium 3.4 mmol/L (3.5-5.1); Sodium 131 mmol/L (135-145); eGFR > 60.00
[2023-12-31] MEDS: DELTASONE 7.5 MG PO (07:24)
[2023-12-31] MEDS: SYNTHROID 137 MCG PO (07:24)
[2023-12-31] MEDS: NORVASC 5 MG PO (07:25)
[2023-12-31] MEDS: COZAAR 75 MG PO (07:25)
[2023-12-31] MEDS: LIPITOR 10 MG PO (07:25)
[2023-12-31 07:44] VITALS: BP 137/78
--- NOTE | 2023-12-31 10:34 | W.PN.HOSP.TC ---
Addendum entered and electronically signed by Neymar Adams MD 12/31/23 18:27:
Hyponatremia
Original Note:
Today's Communication/Plan
-
Continue antibiotics. N.p.o.
Assessment / Plan
Assessment / Plan
Physical exam:
General: Acutely ill
HEENT: Normocephalic, Atraumatic and Moist Mucous Membranes
Respiratory: Clear to Auscultation; Negative Wheezes, Rales or Rhonchi
Cardiac: Regular Rhythm and S1/S2
GI: Soft, Tender and Nondistended
Musculoskeletal: No Clubbing, No Cyanosis and No Edema
Neuro: Awake, Alert and Oriented, no gross neuro-deficits
Psych: Calm
A/P:
Acute Sigmoid Diverticulitis
- CT scan reveals evidence of local microperf, etc.
- IV abx with Zosyn for now.
- IVFs, pain control, supportive care. WBC 14.7--> 11.2
- Colorectal Surgery evaluation for additional recommendations. CRS evaluated the patient and appreciated input.
- Follow for any new / worsening symptoms. Keep him n.p.o. for now. Obtain stool cultures and C. difficile. Discussed with sister at bedside today.
Adrenal Insufficiency
- Reportedly secondary to immunotherapy / cancer treatment.
- Continue current prednisone replacement dosing for now.
- Consider brief stress dosing of steroids if any hemodynamic issues during hospital stay.
Hypothyroidism
- Continue current T4 replacement.
Benign Hypertension
- Stable. Continue OP medications and adjust as needed fo BP control.
Malignant Melanoma - In Remission
- s/p excision / neck dissection and immunotherapy.
- No longer on active treatment.
- No acute / active issues.
DVT Prophylaxis: Lovenox
Code Status: Full
Anticipated Discharge: > 48 hours
Subjective/Interval History
-
Date of Service: December 31, 2023
Patient overall improving but still having abdominal pain moderate intensity, nausea and vomiting. Having some diarrhea. Afebrile
Objective Data
-
Labs:
Laboratory Results
12/31/23
06:29
WBC 11.2 H
Hgb 14.0
Hct 38.9 L
Plt Count 144
Sodium 131 L
Potassium 3.4 L
Chloride 99
Carbon Dioxide 22
BUN 27 H
Creatinine 0.9
Glucose 96
Calcium 9.4
Vital Signs:
Vital Signs
Temp Pulse Resp BP Pulse Ox
99.4 F 81 18 137/78 94
12/31/23 07:44 12/31/23 07:44 12/31/23 07:44 12/31/23 07:44 12/31/23 07:44
I&O
12/30/23 12/31/23 01/01/24
06:59 06:59 06:59
Intake Total 450 / 450
Balance 450 / 450
[2023-12-31] MEDS: KCL 160 MEQ IV (11:13)
--- NOTE | 2023-12-31 12:04 | W.PN.CRS1 ---
Today's Communication / Plan
-
No plans for surgery at this time.
Assessment/Plan
-
Diverticulitis with microperforation.
1. Emesis overnight. Continue sips of clears.
2. WBC improving. Less tender on exam. Continue antibiotics.
3. Will continue to follow.
Subjective Data
Subjective Data
Date of Service: December 31, 2023
His abdominal pain has improved and there is discomfort only when pressed up. He vomited last night bu is passing some loose stool.
Objective Data
-
Vital Signs
Temp Pulse Resp BP Pulse Ox
99.4 F 81 18 137/78 94
12/31/23 07:44 12/31/23 07:44 12/31/23 07:44 12/31/23 07:44 12/31/23 07:44
Intake & Output
12/30/23 12/31/23 01/01/24
06:59 06:59 06:59
Intake Total 450 / 450
Balance 450 / 450
Intake:
IV fluids (Total) 400 / 400
IV piggybacks 50 / 50
Other:
Number of approximated LARGE 2
amounts of urine
How many times incontinent 2
MODERATE amount urine
Number of unmeasured liquid
stools
Rectum 1
Lab Results
12/31/23 06:29
12/31/23 06:29
Physical Exam
-
General: No Acute Distress
Abdomen: Soft and Tender (minimal LLQ, no peritoneal signs)
--- NOTE | 2023-12-31 12:04 | W.PN.CRS1 ---
Today's Communication / Plan
-
Continue current care.
Assessment/Plan
-
Diverticulitis with microperforation.
1. Emesis overnight. Question ileus. Continue ice chips.
2. WBC improving. Less tender on exam. Continue antibiotics.
3. Will continue to follow.
Subjective Data
Subjective Data
Date of Service: December 31, 2023
Had some emesis overnight. Pain a little bit less. Having diarrhea.
Objective Data
-
Vital Signs
Temp Pulse Resp BP Pulse Ox
99.4 F 81 18 137/78 94
12/31/23 07:44 12/31/23 07:44 12/31/23 07:44 12/31/23 07:44 12/31/23 07:44
Intake & Output
12/30/23 12/31/23 01/01/24
06:59 06:59 06:59
Intake Total 450 / 450
Balance 450 / 450
Intake:
IV fluids (Total) 400 / 400
IV piggybacks 50 / 50
Other:
Number of approximated LARGE 2
amounts of urine
How many times incontinent 2
MODERATE amount urine
Number of unmeasured liquid
stools
Rectum 1
Lab Results
12/31/23 06:29
12/31/23 06:29
Physical Exam
-
General: No Acute Distress
Chest: Clear
Cardiovascular: Regular Rate & Rhythm
Abdomen: Distended (Mild) and Tender (Left lower quadrant moderate)
--- NOTE | 2023-12-31 12:52 | PN.CDI ---
CDI
- -
CDI:
Physician Documentation Request
Admit Date: 12/30/23 01:58
Dear Doctor Angie,
Clinical Indicators:
Patient admitted with Acute Sigmoid Diverticulitis.
IVF: LR @ 100 ml/hr
Sodium trend:
12/29/23 12/30/23
20:55 11:10
Sodium 133 L 131 L
Based on the above, could you clarify in the progress notes, the appropriate diagnosis, if significant, that supports the above abnormalities and additional evaluation, monitoring and/or treatment rendered:
Hyponatremia
Abnormal lab values, clinically insignificant
Other, please specify
Use of terms such as suspected, likely, concern for, or probable (associated with a specific diagnosis that is being evaluated, monitored, or treated as if it exists) are acceptable and can be coded in the inpatient setting, when documented at the
time of discharge.
Thank you,
Tyesha Zapien RN BSN
CDI Specialist
available via tiger text
Please use your independent medical judgment in providing your response.
[2023-12-31] MEDS: ZOFRAN 4 MG IV ×2 (13:19→20:50)
[2023-12-31 16:38] VITALS: BP 144/87
[2023-12-31] MEDS: LOVENOX 40 MG SC (17:37)
[2023-12-31 23:51] VITALS: BP 150/85
[2024-01-01] MEDS: DILAUDID 0.5 MG IV ×5 (00:06→22:59)
[2024-01-01] MEDS: SYNTHROID 137 MCG PO (05:36)
[2024-01-01] MEDS: ZOSYN 50 IV ×4 (05:36→23:00)
[2024-01-01 06:52] LABS: % Basophils 0.5 % (0-2); % Eosinophils 2.3 % (0-6); % Immature Granulocytes 0.3 % (0-0.5); % Lymphocytes 9.6 % (20.5-51.1); % Monocytes 10.1 % (1.7-9.3); % Neutrophils 77.2 % (42.2-75.2); Absolute Eosinophils 0.2 10^3/uL (0-0.7); Absolute Lymphocytes 0.7 10^3/uL (1.2-3.4); Absolute Monocytes 0.8 10^3/uL (0.1-0.6); Absolute Neutrophils 5.7 10^3/uL (1.4-6.5); Hematocrit 33.9 % (39.0-52.0); Hemoglobin 11.9 g/dL (13.0-18.0); Mean Corp Hgb Conc. 35.1 g/dL (33.0-37.0); Mean Corpuscular Hgb 28.5 pg (27.0-31.0); Mean Corpuscular Volume 81.3 fL (80.0-94.0); Mean Platelet Volume 9.5 fL (7.4-10.4); Nucleated Red Blood Cells % 0 % (-); Platelet Count 173 10^3/uL (130-400); Red Blood Cell Count 4.17 10^6/uL (4.70-6.10); Red Cell Dist. Width 13.5 % (11.5-14.5); White Blood Cell Count 7.4 10^3/uL (4.8-10.8)
[2024-01-01 07:21] LABS: Blood Urea Nitrogen 17 mg/dl (9-20); Calcium 8.7 mg/dl (8.4-10.2); Carbon Dioxide 25 mmol/L (22-30); Chloride 100 mmol/L (98-107); Estimated Creatinine Clearance 119 ml/min; Glucose 83 mg/dl (70-99); Potassium 3.5 mmol/L (3.5-5.1); Sodium 132 mmol/L (135-145); eGFR > 60.00
[2024-01-01 07:30] VITALS: BP 151/71
[2024-01-01] MEDS: ZOFRAN 4 MG IV ×3 (08:06→18:04)
[2024-01-01] MEDS: DELTASONE PO (08:15)
--- NOTE | 2024-01-01 08:42 | W.PN.HOSP.TC ---
Today's Communication/Plan
-
Continue antibiotics. Pain control. IVF
Assessment / Plan
Assessment / Plan
Physical exam:
General: Acutely ill
HEENT: Normocephalic, Atraumatic and Moist Mucous Membranes
Respiratory: Clear to Auscultation; Negative Wheezes, Rales or Rhonchi
Cardiac: Regular Rhythm and S1/S2
GI: Soft, Tender and Nondistended
Musculoskeletal: No Clubbing, No Cyanosis and No Edema
Neuro: Awake, Alert and Oriented, no gross neuro-deficits
Psych: Calm
A/P:
Acute Sigmoid Diverticulitis
- CT scan reveals evidence of local microperf, etc.
- IV abx with Zosyn for now.
- IVFs, pain control, supportive care. WBC 14.7--> 11.2-->7.4
- Colorectal Surgery evaluation for additional recommendations. CRS evaluated the patient and appreciated input.
- Follow for any new / worsening symptoms. Keep him n.p.o. for now but allow sips of clear. Obtained stool cultures. C. difficile negative. Discussed with sister at bedside yesterday and discussed with friend at bedside today.
Hyponatremia
Mild at 132
Continue to monitor
Hypokalemia
Repleted
Adrenal Insufficiency
- Reportedly secondary to immunotherapy / cancer treatment.
- Continue current prednisone replacement dosing for now.
- Consider brief stress dosing of steroids if any hemodynamic issues during hospital stay.
Hypothyroidism
- Continue current T4 replacement.
Benign Hypertension
- Stable. Continue OP medications and adjust as needed fo BP control.
Malignant Melanoma - In Remission
- s/p excision / neck dissection and immunotherapy.
- No longer on active treatment.
- No acute / active issues.
DVT Prophylaxis: Lovenox
Code Status: Full
Anticipated Discharge: > 48 hours
Subjective/Interval History
-
Date of Service: January 01, 2024
Patient with less abdominal pain. No nausea vomiting.
Objective Data
-
Labs:
Laboratory Results
01/01/24
06:21
WBC 7.4
Hgb 11.9 L
Hct 33.9 L
Plt Count 173 D
Sodium 132 L
Potassium 3.5
Chloride 100
Carbon Dioxide 25
BUN 17
Creatinine 0.7
Glucose 83
Calcium 8.7
Vital Signs:
Vital Signs
Temp Pulse Resp BP Pulse Ox
98.3 F 54 16 151/71 97
01/01/24 07:30 01/01/24 07:30 01/01/24 07:30 01/01/24 07:30 01/01/24 07:30
--- NOTE | 2024-01-01 09:19 | W.PN.CRS1 ---
Today's Communication / Plan
-
Continue sips of clears
Continue antibiotics
Assessment/Plan
-
Diverticulitis with microperforation.
1. Continue on clears for now. I told him to go slow and if he feels nauseous to not drink.
2. WBC now normalized at 7.4. Less tender per patient. Continue antibiotics.
3. Will continue to follow.
Subjective Data
Subjective Data
Date of Service: January 01, 2024
Patient states he feels better than since when he was admitted but still has abdominal pain. He is having loose stools. He has no blood in his stools. He did vomit yesterday afternoon and has been nauseous this morning.
Objective Data
-
Vital Signs
Temp Pulse Resp BP Pulse Ox
98.3 F 54 16 151/71 97
01/01/24 07:30 01/01/24 07:30 01/01/24 07:30 01/01/24 07:30 01/01/24 07:30
Intake & Output
12/31/23 01/01/24 01/02/24
06:59 06:59 06:59
Other:
Number of approximated MODERATE 3
amounts of urine
Number of approximated LARGE 2 3
amounts of urine
How many times incontinent 2
MODERATE amount urine
Lab Results
01/01/24 06:21
01/01/24 06:21
Physical Exam
-
General: No Acute Distress and AOx3
Abdomen: Soft, Non Distended and Tender (Left lower quadrant, improving per patient)
Skin: Warm and Dry
[2024-01-01] MEDS: LR 1000 IV ×2 (10:04→22:19)
[2024-01-01] MEDS: LIPITOR PO ×2 (10:09→10:56)
[2024-01-01] MEDS: COZAAR PO ×2 (10:09→10:55)
[2024-01-01] MEDS: NORVASC PO ×2 (10:09→10:56)
--- NOTE | 2024-01-01 13:48 | PTCARENOTE ---
d: at 1241, patient c/o nausea,not due for Zofran PRN till 1406.
A: Thalia Talbert PAC made aware and requested Compazine one time dose
R: at 1248, Thalia Talbert PAC responded and communicated that Compazine could make patient's condition worse but she would order Zofran 4mgs IV now. patient made aware, will continue to monitor.
[2024-01-01 15:10] VITALS: BP 138/67
[2024-01-01] MEDS: LOVENOX 40 MG SC (17:18)
[2024-01-01 23:02] VITALS: BP 144/71
[2024-01-01] MEDS: LR IV (23:10)
[2024-01-02] MEDS: ZOFRAN 4 MG IV ×4 (00:05→18:50)
[2024-01-02] MEDS: SYNTHROID 137 MCG PO (05:58)
[2024-01-02] MEDS: ZOSYN 50 IV ×4 (05:58→23:46)
[2024-01-02] MEDS: DILAUDID 0.5 MG IV ×3 (05:58→18:50)
[2024-01-02 06:29] LABS: % Basophils 1.1 % (0-2); % Eosinophils 4.7 % (0-6); % Immature Granulocytes 0.5 % (0-0.5); % Lymphocytes 13.8 % (20.5-51.1); % Monocytes 11.3 % (1.7-9.3); % Neutrophils 68.6 % (42.2-75.2); Absolute Basophils 0.1 10^3/uL (0-0.2); Absolute Eosinophils 0.3 10^3/uL (0-0.7); Absolute Lymphocytes 0.8 10^3/uL (1.2-3.4); Absolute Monocytes 0.6 10^3/uL (0.1-0.6); Absolute Neutrophils 3.8 10^3/uL (1.4-6.5); Hematocrit 34.8 % (39.0-52.0); Hemoglobin 12.2 g/dL (13.0-18.0); Mean Corp Hgb Conc. 35.1 g/dL (33.0-37.0); Mean Corpuscular Hgb 28.4 pg (27.0-31.0); Mean Corpuscular Volume 81.1 fL (80.0-94.0); Mean Platelet Volume 9.2 fL (7.4-10.4); Nucleated Red Blood Cells % 0 % (-); Platelet Count 172 10^3/uL (130-400); Red Blood Cell Count 4.29 10^6/uL (4.70-6.10); Red Cell Dist. Width 13.3 % (11.5-14.5); White Blood Cell Count 5.6 10^3/uL (4.8-10.8)
[2024-01-02 07:22] LABS: Blood Urea Nitrogen 11 mg/dl (9-20); Calcium 8.6 mg/dl (8.4-10.2); Carbon Dioxide 23 mmol/L (22-30); Chloride 98 mmol/L (98-107); Estimated Creatinine Clearance > 125 ml/min; Glucose 67 mg/dl (70-99); Potassium 3.4 mmol/L (3.5-5.1); Sodium 131 mmol/L (135-145); eGFR > 60.00
--- NOTE | 2024-01-02 07:29 | W.PN.HOSP.TC ---
Today's Communication/Plan
-
IV antibiotics. Start diet today
Assessment / Plan
Assessment / Plan
Physical exam:
General: Acutely ill
HEENT: Normocephalic, Atraumatic and Moist Mucous Membranes
Respiratory: Clear to Auscultation; Negative Wheezes, Rales or Rhonchi
Cardiac: Regular Rhythm and S1/S2
GI: Obese, Soft, Tender but less and Nondistended
Musculoskeletal: No Clubbing, No Cyanosis and No Edema
Neuro: Awake, Alert and Oriented, no gross neuro-deficits
Psych: Calm
A/P:
Acute Sigmoid Diverticulitis
- CT scan reveals evidence of local microperf, etc.
- IV abx with Zosyn for now.
- IVFs, pain control, supportive care. WBC 14.7-->5.6
- Colorectal Surgery evaluation for additional recommendations. CRS evaluated the patient and appreciated input.
- Obtained stool cultures. C. difficile negative. Discussed with sister and friend at bedside prior.
-Will start on clear liquid diet today
Hyponatremia
Mild at 131
Continue to monitor
Hypokalemia
K 3.4
Replete IV 40 meq today and trend
Check magnesium in a.m.
Adrenal Insufficiency
- Reportedly secondary to immunotherapy / cancer treatment.
- Continue current prednisone replacement dosing for now.
- Consider brief stress dosing of steroids if any hemodynamic issues during hospital stay.
Hypothyroidism
- Continue current T4 replacement.
Benign Hypertension
- Stable. Continue OP medications and adjust as needed fo BP control.
Malignant Melanoma - In Remission
- s/p excision / neck dissection and immunotherapy.
- No longer on active treatment.
- No acute / active issues.
DVT Prophylaxis: Lovenox
Code Status: Full
Anticipated Discharge: 24 - 48 hours
Subjective/Interval History
-
Date of Service: January 02, 2024
Patient feels better overall, less abdominal pain. No nausea or vomiting
Objective Data
-
Labs:
Laboratory Results
01/02/24
05:59
WBC 5.6
Hgb 12.2 L
Hct 34.8 L
Plt Count 172
Sodium 131 L
Potassium 3.4 L
Chloride 98
Carbon Dioxide 23
BUN 11
Creatinine 0.6 L
Glucose 67 L
Calcium 8.6
Vital Signs:
Vital Signs
Temp Pulse Resp BP Pulse Ox
98.1 F 57 18 144/71 96
01/01/24 23:02 01/01/24 23:02 01/01/24 23:02 01/01/24 23:02 01/01/24 23:02
I&O
01/01/24 01/02/24 01/03/24
06:59 06:59 06:59
Intake Total 1240 / 1240
Output Total 300 / 700 400 / 400
Balance 940 / 540 -400 / -400
[2024-01-02 07:30] VITALS: BP 146/77
[2024-01-02] MEDS: NORVASC 5 MG PO (07:41)
[2024-01-02] MEDS: COZAAR 75 MG PO (07:41)
[2024-01-02] MEDS: LIPITOR 10 MG PO (07:41)
[2024-01-02] MEDS: DELTASONE 7.5 MG PO (07:41)
[2024-01-02] MEDS: KCL 270 MEQ IV (07:42)
[2024-01-02 09:21] LABS: Glucose - Point of Care 81 mg/dl (70-99)
[2024-01-02 10:11] VITALS: BMI 30.2
[2024-01-02] MEDS: LR 1000 IV ×2 (10:25→23:48)
--- NOTE | 2024-01-02 10:56 | W.PN.CRS1 ---
Today's Communication / Plan
-
Clear liquids with Ensure
Continue IV antibiotics
Assessment/Plan
-
Diverticulitis with microperforation.
1. Continue clear liquid diet with Ensure clear. If he would like full liquids later today I have asked him to notify his nurse.
2. WBC normalized. Less tender per patient. Continue antibiotics.
3. No plans for surgery at this time.
4. We will follow.
Subjective Data
Subjective Data
Date of Service: January 02, 2024
Patient states he had a better night. He is not that hungry right now. He has flatus. He is no longer extremely nauseous.
Objective Data
-
Vital Signs
Temp Pulse Resp BP Pulse Ox
98.4 F 66 18 146/77 98
01/02/24 07:30 01/02/24 07:41 01/02/24 07:30 01/02/24 07:41 01/02/24 07:30
Intake & Output
01/01/24 01/02/24 01/03/24
06:59 06:59 06:59
Intake Total 1240 / 1240
Output Total 300 / 700 400 / 400
Balance 940 / 540 -400 / -400
Intake:
Oral fluids 240 / 240
IV fluids (Total) 900 / 900
IV piggybacks 100 / 100
Output:
Urine, Voided 300 / 700 400 / 400
Other:
Number of approximated MODERATE 2
amounts of urine
Number of approximated LARGE 3
amounts of urine
How many times incontinent 2
MODERATE amount urine
Number of unmeasured liquid
stools
Rectum 2
Lab Results
01/02/24 05:59
01/02/24 05:59
Physical Exam
-
General: No Acute Distress and AOx3
Abdomen: Soft, Non Distended and Non Tender
Skin: Warm and Dry
[2024-01-02 15:15] VITALS: BP 130/77
--- NOTE | 2024-01-02 16:46 | CM ---
Reviewed chart, met with patient to obtain information for assessment. Patient stated that he lives with his in a single, two story home with two steps to enter. He described himself as independent with his ADLs and personal care as well as
dressing and bathing. He can do all cookie padder, cooking, cleaning and laundry. Patient drives and can transport himself to the store and go to all of his appointments.
He denied any DME.
Has never had VN services.
Patient has not been to a SNF in the past.
Patient has a prescription plan and uses, [facility] pharmacy for all of her medications.
Patient's PCP, is Dale Lr.
Patient is starting to feel better and stated that he feels that he will be able to return home no needs.
Plan: Case management will continue to follow and assist with discharge planning. Home when stable.
[2024-01-02] MEDS: LOVENOX 40 MG SC (17:28)
[2024-01-02 23:15] VITALS: BP 134/77
[2024-01-02] MEDS: FLUSH (NSS) 2 FLUSH IV (23:49)
[2024-01-03] MEDS: ZOFRAN 4 MG IV ×3 (04:36→17:24)
[2024-01-03] MEDS: DILAUDID 0.5 MG IV ×4 (04:38→22:48)
[2024-01-03] MEDS: FLUSH (NSS) 3 FLUSH IV (04:38)
[2024-01-03] MEDS: SYNTHROID 137 MCG PO (05:25)
[2024-01-03] MEDS: ZOSYN 50 IV ×4 (05:25→23:58)
--- NOTE | 2024-01-03 05:29 | PTCARENOTE ---
Patient slept well until 04:30 when he woke with nausea and 8/10 pain. ofran and Dilaudid as ordered. Patient states relief of pain but nausea persists. He declined further intervention and wants to go back to sleep.
[2024-01-03 06:38] LABS: % Basophils 1.2 % (0-2); % Eosinophils 4.2 % (0-6); % Immature Granulocytes 0.8 % (0-0.5); % Lymphocytes 18.7 % (20.5-51.1); % Monocytes 13.8 % (1.7-9.3); % Neutrophils 61.3 % (42.2-75.2); Absolute Basophils 0.1 10^3/uL (0-0.2); Absolute Eosinophils 0.2 10^3/uL (0-0.7); Absolute Monocytes 0.7 10^3/uL (0.1-0.6); Absolute Neutrophils 3.2 10^3/uL (1.4-6.5); Hematocrit 32.4 % (39.0-52.0); Hemoglobin 11.4 g/dL (13.0-18.0); Mean Corp Hgb Conc. 35.2 g/dL (33.0-37.0); Mean Corpuscular Volume 79.6 fL (80.0-94.0); Mean Platelet Volume 8.8 fL (7.4-10.4); Nucleated Red Blood Cells % 0 % (-); Platelet Count 186 10^3/uL (130-400); Red Blood Cell Count 4.07 10^6/uL (4.70-6.10); Red Cell Dist. Width 13.4 % (11.5-14.5); White Blood Cell Count 5.2 10^3/uL (4.8-10.8)
[2024-01-03 06:54] LABS: Blood Urea Nitrogen 6 mg/dl (9-20); Calcium 8.6 mg/dl (8.4-10.2); Carbon Dioxide 29 mmol/L (22-30); Chloride 98 mmol/L (98-107); Estimated Creatinine Clearance > 125 ml/min; Glucose 95 mg/dl (70-99); Magnesium 1.4 mg/dl (1.6-2.3); Potassium 3.5 mmol/L (3.5-5.1); Sodium 133 mmol/L (135-145); eGFR > 60.00
[2024-01-03 07:39] VITALS: BP 117/68
[2024-01-03] MEDS: NORVASC 5 MG PO (07:45)
[2024-01-03] MEDS: LIPITOR 10 MG PO (07:46)
[2024-01-03] MEDS: COZAAR 75 MG PO (07:46)
[2024-01-03] MEDS: DELTASONE 7.5 MG PO (07:46)
--- NOTE | 2024-01-03 08:24 | W.PN.HOSP.TC ---
Today's Communication/Plan
-
IV antibiotics. Advance diet.
Assessment / Plan
Assessment / Plan
Physical exam:
General: Acutely ill
HEENT: Normocephalic, Atraumatic and Moist Mucous Membranes
Respiratory: Clear to Auscultation; Negative Wheezes, Rales or Rhonchi
Cardiac: Regular Rhythm and S1/S2
GI: Obese, Soft, Tender but very minimal today and Nondistended
Musculoskeletal: No Clubbing, No Cyanosis and No Edema
Neuro: Awake, Alert and Oriented, no gross neuro-deficits
Psych: Calm
A/P:
Acute Sigmoid Diverticulitis
- CT scan reveals evidence of local microperf, etc.
- IV abx with Zosyn for now.
- IVFs, pain control, supportive care. WBC 14.7-->5.2
- Colorectal Surgery evaluation for additional recommendations. CRS evaluated the patient and appreciated input.
- Obtained stool cultures. C. difficile negative. Discussed with sister and friend at bedside prior.
- On clear liquid diet--> advance to full liquid diet today.
Hyponatremia
Mild 131-->133
Continue to monitor
Hypokalemia
K 3.4-->3.5
Replete and trend as needed
Check magnesium and low-replete
Hypomagnesemia:
Replete and trend
Adrenal Insufficiency
- Reportedly secondary to immunotherapy / cancer treatment.
- Continue current prednisone replacement dosing for now.
- Consider brief stress dosing of steroids if any hemodynamic issues during hospital stay.
Hypothyroidism
- Continue current T4 replacement.
Benign Hypertension
- Stable. Continue OP medications and adjust as needed fo BP control.
Malignant Melanoma - In Remission
- s/p excision / neck dissection and immunotherapy.
- No longer on active treatment.
- No acute / active issues.
DVT Prophylaxis: Lovenox
Code Status: Full
Anticipated Discharge: 24 - 48 hours
Subjective/Interval History
-
Date of Service: January 03, 2024
Patient doing better overall. No abdominal pain today. No nausea vomiting. Passing gases. Afebrile
Objective Data
-
Labs:
Laboratory Results
01/03/24
06:17
WBC 5.2
Hgb 11.4 L
Hct 32.4 L
Plt Count 186
Sodium 133 L
Potassium 3.5
Chloride 98
Carbon Dioxide 29
BUN 6 L
Creatinine 0.6 L
Glucose 95
Calcium 8.6
Vital Signs:
Vital Signs
Temp Pulse Resp BP Pulse Ox
97.9 F 60 18 117/68 99
01/03/24 07:39 01/03/24 07:39 01/03/24 07:39 01/03/24 07:39 01/03/24 07:39
I&O
01/02/24 01/03/24 01/04/24
06:59 06:59 06:59
Intake Total 1240 / 1240 3817 / 3817
Output Total 300 / 700 2740 / 2740
Balance 940 / 540 1077 / 1077
[2024-01-03] MEDS: MAGNESIUM SULFATE 50 IV (08:39)
[2024-01-03] MEDS: LR 1000 IV ×2 (10:36→22:48)
--- NOTE | 2024-01-03 11:54 | W.PN.CRS1 ---
Today's Communication / Plan
-
Full liquids
Assessment/Plan
-
Diverticulitis with microperforation.
1. Advance diet to full liquids with protein shake.
2. WBC normalized. Less tender per patient. Continue antibiotics.
3. No plans for surgery at this time.
4. We will follow.
Subjective Data
Subjective Data
Date of Service: January 03, 2024
Patient states he feels much improved. He has some mild cramping but has definitely turned a corner. He is able to tolerate his clears. He denies nausea or vomiting.
Objective Data
-
Vital Signs
Temp Pulse Resp BP Pulse Ox
97.9 F 60 18 117/68 99
01/03/24 07:39 01/03/24 07:39 01/03/24 07:39 01/03/24 07:39 01/03/24 07:39
Intake & Output
01/02/24 01/03/24 01/04/24
06:59 06:59 06:59
Intake Total 1240 / 1240 3817 / 3817
Output Total 300 / 700 2740 / 2740
Balance 940 / 540 1077 / 1077
Intake:
Oral fluids 240 / 240 1560 / 1560
IV fluids (Total) 900 / 900 1837 / 1837
IV piggybacks 100 / 100 420 / 420
Output:
Urine, Voided 300 / 700 2740 / 2740
Other:
Number of approximated MODERATE 2 2
amounts of urine
Number of unmeasured liquid
stools
Rectum 2
Lab Results
01/03/24 06:17
01/03/24 06:17
Physical Exam
-
General: No Acute Distress and AOx3
Abdomen: Soft, Non Distended and Non Tender
Skin: Warm and Dry
[2024-01-03 14:55] VITALS: BP 157/83
[2024-01-03] MEDS: LOVENOX 40 MG SC (17:18)
[2024-01-03 23:00] VITALS: BP 141/73
[2024-01-04] MEDS: ZOFRAN 4 MG IV (05:15)
[2024-01-04] MEDS: DILAUDID 0.5 MG IV (05:15)
[2024-01-04] MEDS: ZOSYN 50 IV ×2 (05:16→12:30)
[2024-01-04] MEDS: SYNTHROID 137 MCG PO (05:16)
[2024-01-04 08:00] VITALS: BP 153/86
[2024-01-04] MEDS: NORVASC 5 MG PO (08:42)
[2024-01-04] MEDS: LIPITOR 10 MG PO (08:42)
[2024-01-04] MEDS: DELTASONE 7.5 MG PO (08:42)
[2024-01-04] MEDS: COZAAR 75 MG PO (08:44)
[2024-01-04 09:31] LABS: Hematocrit 33.2 % (39.0-52.0); Hemoglobin 11.2 g/dL (13.0-18.0); Mean Corp Hgb Conc. 33.7 g/dL (33.0-37.0); Mean Corpuscular Hgb 28.2 pg (27.0-31.0); Mean Corpuscular Volume 83.6 fL (80.0-94.0); Mean Platelet Volume 9.3 fL (7.4-10.4); Platelet Count 230 10^3/uL (130-400); Red Blood Cell Count 3.97 10^6/uL (4.70-6.10); Red Cell Dist. Width 13.9 % (11.5-14.5); White Blood Cell Count 5.5 10^3/uL (4.8-10.8)
[2024-01-04 09:45] LABS: Blood Urea Nitrogen 5 mg/dl (9-20); Calcium 8.8 mg/dl (8.4-10.2); Carbon Dioxide 32 mmol/L (22-30); Chloride 99 mmol/L (98-107); Estimated Creatinine Clearance 119 ml/min; Glucose 93 mg/dl (70-99); Magnesium 1.6 mg/dl (1.6-2.3); Potassium 3.7 mmol/L (3.5-5.1); Sodium 137 mmol/L (135-145); eGFR > 60.00
--- NOTE | 2024-01-04 09:51 | W.PN.HOSP.TC ---
Today's Communication/Plan
-
Discharge planning today.
Assessment / Plan
Assessment / Plan
Physical exam:
General: Well Developed, Well Nourished and No Apparent Distress
HEENT: Normocephalic, Atraumatic and Moist Mucous Membranes
Respiratory: Clear to Auscultation; Negative Wheezes, Rales or Rhonchi
Cardiac: Regular Rhythm and S1/S2
GI: Soft, Nontender and Nondistended
Musculoskeletal: No Clubbing, No Cyanosis and No Edema
Neuro: Awake, Alert and Oriented
Psych: Calm
A/P:
Acute Sigmoid Diverticulitis
- CT scan reveals evidence of local microperf, etc.
- IV abx with Zosyn but changed to oral Augmentin today
- Stop IVFs, continue pain control, supportive care. WBC 14.7-->5.5
- Colorectal Surgery evaluation for additional recommendations. CRS evaluated the patient and appreciated input.
- Obtained stool cultures. C. difficile negative. Discussed with sister and friend at bedside prior.
-Advance to low residue diet. Planning to discharge today if tolerating diet
Hyponatremia
Mild 131-->133
Continue to monitor
Hypokalemia
K 3.4-->3.7
Replete and trend as needed
Check magnesium and low-replete
Hypomagnesemia:
Replete and trend
Mg 1.4-->1.6
Adrenal Insufficiency
- Reportedly secondary to immunotherapy / cancer treatment.
- Continue current prednisone replacement dosing for now.
- Consider brief stress dosing of steroids if any hemodynamic issues during hospital stay.
Hypothyroidism
- Continue current T4 replacement.
Benign Hypertension
- Stable. Continue OP medications and adjust as needed fo BP control.
Malignant Melanoma - In Remission
- s/p excision / neck dissection and immunotherapy.
- No longer on active treatment.
- No acute / active issues.
DVT Prophylaxis: Lovenox
Code Status: Full
Anticipated Discharge: Today
Subjective/Interval History
-
Date of Service: January 04, 2024
Patient doing well. No abdominal pain nausea or vomiting. Tolerating diet. Afebrile
Objective Data
-
Labs:
Laboratory Results
01/04/24 01/04/24
07:08 08:47
WBC 5.5
Hgb 11.2 L
Hct 33.2 L
Plt Count 230 D
Sodium 137
Potassium 3.7
Chloride 99
Carbon Dioxide 32 H
BUN 5 L
Creatinine 0.7
Glucose 93
Calcium 8.8
Vital Signs:
Vital Signs
Temp Pulse Resp BP Pulse Ox
97.5 F 57 21 153/86 98
01/04/24 08:00 01/04/24 08:00 01/04/24 08:00 01/04/24 08:00 01/04/24 08:00
I&O
01/03/24 01/04/24 01/05/24
06:59 06:59 06:59
Intake Total 3817 / 3817 840 / 840
Output Total 2740 / 2740 830 / 830
Balance 1077 / 1077
[2024-01-04] MEDS: LR IV (12:24)
--- NOTE | 2024-01-04 14:30 | W.DCSUMMARY ---
Discharge Summary
Discharge Data
Date of Admission: 12/30/23
Date of Discharge: 01/04/24
-
Pending Results: No
Hospital Course
Patient 73 years old man history of hypertension, hypothyroidism, melanoma, adrenal insufficiency, presented to the hospital with abdominal pain nausea vomiting and found to have diverticulitis with microperforation. Patient was kept n.p.o., IV
fluids, and broad-spectrum IV antibiotics. Colorectal surgery consulted. Surgery followed him through the hospital stay. He was slowly started on diet and advance and he tolerated. Also antibiotics were switched to oral. His WBC count went down
from 14.7 down to normal 5.5 upon discharge. Patient abdominal pain subsided completely. Colorectal surgery cleared him for discharge today with follow-up as outpatient.
Discharge duration: 34 minutes
Discharge Plan
-
Patient Disposition: Home (Routine Discharge)
Discharge Diagnosis/Procedures: Acute diverticulitis with microperforation. Hyponatremia. Hypokalemia. Hypomagnesemia. Adrenal insufficiency. Hypertension. History of melanoma.
Diet: Low Residue
Activity: As tolerated
Blood Work: Please PCP to order CBC, BMP within 1 week
Referrals:
Shade Dinero MD [Active] - in two to three weeks
Dale Lr DO [Family Provider] - in less than 1 week
Prescriptions:
New
amoxicillin-pot clavulanate 875-125 mg Tablet
1 tab PO Q12 10 Days Qty: 20 0RF
Continued
atorvastatin 10 MG tablet
10 mg PO DAILY
amlodipine 5 MG tablet
5 mg PO DAILY Qty: 0 0RF
prednisone 5 mg tablet
7.5 mg PO DAILY
losartan 50 mg Tablet
75 mg PO DAILY
levothyroxine 137 mcg Tablet
137 mcg PO DAILY
Discharge Orders:
Discharge Patient (As Directed); Ordered 01/04/24
Ordered By: Neymar Adams
Discharge Date and Time
Discharge Date/Time: 01/04/24 15:58
Print Language: GREENLANDIC
[2024-01-04] MEDS: AUGMENTIN 875 MG/125 MG 1 TABLET PO (14:55)
--- NOTE | 2024-01-04 15:17 | CM ---
Pt for discharge today
Has ride home with sister
Discussed IMM
Plan - home no needs
--- NOTE | 2024-01-04 16:44 | W.PN.CRS1 ---
Today's Communication / Plan
-
Discharge.
Follow-up with Dr. Walker in 2-3 weeks.
Assessment/Plan
-
Diverticulitis with microperforation.
Okay for discharge on the low residue diet and antibiotics.
Subjective Data
Subjective Data
Date of Service: January 04, 2024
He feels much better and wants to go home. His appetite is good and his bowels are functioning. He denies any pain. His family is at the bedside.
Objective Data
-
Vital Signs
Temp Pulse Resp BP Pulse Ox
97.5 F 57 21 153/86 98
01/04/24 08:00 01/04/24 08:00 01/04/24 08:00 01/04/24 08:00 01/04/24 08:00
Intake & Output
01/03/24 01/04/24 01/05/24
06:59 06:59 06:59
Intake Total 3817 / 3817 840 / 840
Output Total 2740 / 2740 830 / 830
Balance 1077 / 1077 10 / 10
Intake:
Oral fluids 1560 / 1560 840 / 840
IV fluids (Total) 1837 / 1837
IV piggybacks 420 / 420
Output:
Urine, Voided 2740 / 2740 830 / 830
Other:
Number of approximated MODERATE 2 2
amounts of urine
Lab Results
01/04/24 08:47
01/04/24 07:08
Physical Exam
-
General: No Acute Distress
Abdomen: Soft, Non Distended and Non Tender
Extremities: No Calf Tenderness
== END 2024-01-04 15:58 | disposition home or self-care (01) | DRG 392 ==
LOC: 3 WEST ACU 01:58
PROVIDERS: Registered Nurse; ADMITTING PHYSICIAN Hospitalist; ATTENDING PHYSICIAN Hospitalist; CONSULT PHYSICIAN Surgery; EMERGENCY PHYSICIAN Emergency Medicine; FAMILY PHYSICIAN Internal Medicine
DX: K57.20 Diverticulitis of large intestine with perforation and abscess without bleeding (principal); E27.40 Unspecified adrenocortical insufficiency; R17 Unspecified jaundice; E87.1 Hypo-osmolality and hyponatremia; I10 Essential (primary) hypertension; K64.8 Other hemorrhoids; E03.9 Hypothyroidism, unspecified; G47.33 Obstructive sleep apnea (adult) (pediatric); E87.6 Hypokalemia; E83.42 Hypomagnesemia; E80.4 Gilbert syndrome; I25.10 Atherosclerotic heart disease of native coronary artery without angina pectoris; M19.90 Unspecified osteoarthritis, unspecified site; N20.0 Calculus of kidney; I51.3 Intracardiac thrombosis, not elsewhere classified; I71.40 Abdominal aortic aneurysm, without rupture, unspecified; I71.43 Infrarenal abdominal aortic aneurysm, without rupture; Z96.641 Presence of right artificial hip joint; Z85.820 Personal history of malignant melanoma of skin; Z79.52 Long term (current) use of systemic steroids; Z79.890 Hormone replacement therapy
CPT/HCPCS: 74177; 80048; 80053; 81003; 81015; 82962; 83690; 83735; 85025; 85027; 86803; 87045; 87046; 87324; 87427; 87449; 96365; 96375; 99285; Q9967

== ENCOUNTER 2024-02-15 16:02 | Inpatient (IN) | payer MEDICARE, OTHER, SELFPAY ==
[2024-02-15 09:05] VITALS: BP 140/90
--- NOTE | 2024-02-15 09:40 | ED.GENMED ---
History of Present Illness
<LEO Payton - Last Filed: 02/15/24 15:17>
General
Chief Complaint: Abdominal Symptoms
Source: patient and spouse
Exam Limitations: none
Time Seen by Provider: 02/15/24 09:15
Nursing documentation reviewed up to this point in time: agreed with
History of Present Illness
History of Present Illness:
Patient is a 73-year-old male with past medical history of perforated diverticulitis hypertension high cholesterol presents to the ER for evaluation. Patient was initially started with a chest cold with cough 24 to 36 hours ago not associate with
any fevers.he does report he is coughing up some phlegm. He denies shortness of breath. He then started with lower abdominal pain for the past 24 hours. He has not been eating or drinking for the past day. He reports this does feel similar to
when he has diverticulitis. He reports he had diverticulitis with perforation in December and was followed by Dr. Dinero.
I did review note that reports patient had diverticulitis with microperforation.
Past History
<LEO Payton - Last Filed: 02/15/24 15:17>
Past History
ED Past Medical History: HTN; Negative Asthma, Hypercholesterolemia or NIDDM
ED Past Surgical History: Other (Hemorrhoids)
Social History
Tobacco: Non-smoker
Alcohol: Occasional
Drug: None
Personal:
Living: with family
Employment: Employed
Family History
Family History: Other (reviewed and noncontributory)
Review of Systems
<LEO Payton - Last Filed: 02/15/24 15:17>
Review of Systems
Allergies reviewed?: Yes
All Other Systems: ROS reviewed and negative except as documented in HPI and ROS
Constitutional: Reports no symptoms; Denies fever, fatigue or chills
Respiratory: Reports cough; Denies trouble breathing
Cardiac: Reports no symptoms
ABD/GI: Reports abdominal pain; Denies nausea or vomiting
: Reports no symptoms
Musculoskeletal: Reports no symptoms
Skin: Reports no symptoms
Neurological: Reports no symptoms
Psychiatric: Reports no symptoms
Phy Exam
<LEO Payton - Last Filed: 02/15/24 15:17>
General Physical Exam
General Presentation: no apparent distress
General age: appears stated age
General Skin: warm and dry
General Habitus: normal
General Mental: alert
General Hydration: appears well hydrated
Cardiovascular Exam
Cardiovascular Exam: regular rate/rhythm, no murmur and normal peripheral pulses
Pulmonary Exam
Pulmonary Exam: lungs clear and no respiratory distress
Gastrointestinal Exam
Gastrointestinal Exam: soft and other (lower abd tenderness on exam )
Neurological Exam
Neurological Exam: alert and oriented x3
Musculoskeletal Exam
Musculoskeletal Exam: full ROM
Skin Exam
Skin Exam: normal color and warm/dry
Psychiatric Exam
Psychiatric Exam: normal mood/affect
Course
<LEO Payton - Last Filed: 02/15/24 15:17>
Orders/Labs/Results
Orders:
Orders
02/15/24 09:49
CT Abd/Pel (IV only)-DH only Urgent
Comment:
Reason For Exam: lower abd pain hx of divertic
02/15/24 09:54
0.9% Sodium Chloride 1000 ml [Nss] 1,000 ml IV BOLUS
02/15/24 10:02
Chest [CR Chest - 2 Views ] Urgent
Comment:
Reason For Exam: cough
02/15/24 10:03
Basic Metabolic Panel Urgent
Complete Blood Count/With Diff Urgent
Lipase Urgent
02/15/24 12:40
Urinalysis Reflex To Culture Urgent
Date Specimen was Collected: 02/15/24
Time Specimen was Collected: 12:16
Urine Microscopic Reflex Cult Urgent
02/15/24 15:01
MetroNIDAZOLE 500 MG/100 ML [Flagyl 500 mg] 100 ml IV NOW
02/15/24 15:02
Ciprofloxacin 400 mg/[id number] [Cipro 400 mg] 200 ml IV NOW
Abnormal Lab Results
02/15/24 02/15/24
10:03 12:40
Absolute Lymphs (auto) 1.0 L 10^3/uL
(1.2-3.4)
Absolute Monos (auto) 0.7 H 10^3/uL
(0.1-0.6)
Lymphocytes % 13.6 L %
(20.5-51.1)
Urine Ketones 2+ A
(Negative)
Ur Occult Blood Reflex 1+ A
(Negative)
Urine RBC 3-6 A /HPF
(0-2)
Urine Bacteria (Reflex) Few A
(Negative)
02/15/24 10:03
02/15/24 10:03
Vital Signs
Initial and Last Documented VS:
Initial Vital Signs
Temp Pulse Resp BP Pulse Ox
98.6 F 76 16 140/90 98
02/15/24 09:05 02/15/24 09:05 02/15/24 09:05 02/15/24 09:05 02/15/24 09:05
Last Documented Vital Signs
Temp Pulse Resp BP Pulse Ox
98.6 F 69 22 145/81 95
02/15/24 12:22 02/15/24 12:22 02/15/24 12:22 02/15/24 12:22 02/15/24 12:22
<Shade Day MD - Last Filed: 02/15/24 14:27>
Orders/Labs/Results
Orders:
Orders
02/15/24 09:49
CT Abd/Pel (IV only)-DH only Urgent
Comment:
Reason For Exam: lower abd pain hx of divertic
02/15/24 09:54
0.9% Sodium Chloride 1000 ml [Nss] 1,000 ml IV BOLUS
02/15/24 10:02
Chest [CR Chest - 2 Views ] Urgent
Comment:
Reason For Exam: cough
02/15/24 10:03
Basic Metabolic Panel Urgent
Complete Blood Count/With Diff Urgent
Lipase Urgent
02/15/24 12:40
Urinalysis Reflex To Culture Urgent
Date Specimen was Collected: 02/15/24
Time Specimen was Collected: 12:16
Urine Microscopic Reflex Cult Urgent
02/15/24 15:01
MetroNIDAZOLE 500 MG/100 ML [Flagyl 500 mg] 100 ml IV NOW
02/15/24 15:02
Ciprofloxacin 400 mg/[id number] [Cipro 400 mg] 200 ml IV NOW
Abnormal Lab Results
02/15/24 02/15/24
10:03 12:40
Absolute Lymphs (auto) 1.0 L 10^3/uL
(1.2-3.4)
Absolute Monos (auto) 0.7 H 10^3/uL
(0.1-0.6)
Lymphocytes % 13.6 L %
(20.5-51.1)
Urine Ketones 2+ A
(Negative)
Ur Occult Blood Reflex 1+ A
(Negative)
Urine RBC 3-6 A /HPF
(0-2)
Urine Bacteria (Reflex) Few A
(Negative)
02/15/24 10:03
02/15/24 10:03
Vital Signs
Initial and Last Documented VS:
Initial Vital Signs
Temp Pulse Resp BP Pulse Ox
98.6 F 76 16 140/90 98
02/15/24 09:05 02/15/24 09:05 02/15/24 09:05 02/15/24 09:05 02/15/24 09:05
Last Documented Vital Signs
Temp Pulse Resp BP Pulse Ox
98.6 F 69 22 145/81 95
02/15/24 12:22 02/15/24 12:22 02/15/24 12:22 02/15/24 12:22 02/15/24 12:22
<ELO Payton - Last Filed: 02/15/24 15:17>
MDM/Problems Addressed
Differential Diagnosis Includes:
not limited to: diverticulitis pneumonia viral syndrome
MDM/Problems Addressed:
Patient is document is a 73-year-old male with a history of diverticulitis with microperforation known to Dr. Dinero.
Patient presents with lower abdominal denies any recent fever or chills though he has had coughing. He presents awake alert no acute distress with a normal white count afebrile nontachycardic normal renal function. CAT scan shows nondistended
segment suggesting diverticulitis of the proximal sigmoid colon Case reviewed with colorectal surgery patient is a very well-appearing will DC on antibiotics. Case reviewed with Dr. Tilley does recommend IV dose here and then discharged home
patient has a stable 5 cm infrarenal abdominal aortic aneurysm. This is not new. With regarding patient's mild cough chest x-ray negative he has no acute distress stable for discharge
1510: Patient now reports he is having increased abdominal pain and now diarrhea. Patient does not feel comfortable going home will admitted to IV antibiotics. Dr. Dinero aware
Chronic conditions affecting care:
diverticultis
<LEO Payton - Last Filed: 02/15/24 15:17>
*Radiology
Radiology exam reviewed: radiology read reviewed
*Pulse Oximetry
Patient hypoxic: no
*Critical Care Note
Total Time (30-74mins, 75-104mins- exclusive of procedures): Not Applicable
ED Attending Note
<LEO Payton - Last Filed: 02/15/24 15:17>
-
Portions of this chart may have been created with voice recognition software.� Occasional wrong word or��sound alike� substitutions may have occurred due to the inherent limitations of voice recognition software.
<Shade Day MD - Last Filed: 02/15/24 14:27>
ED Attending Note
Patient seen and examined by attending physician: Yes
I performed the substantive portion of visit, reviewed & personally made and approve the management plan that is documented in note by myself or EL.: Yes
ED Attending Note:
73-year-old male vague abdominal discomfort x 2 days. History of diverticulitis. Some nausea. Some decreased intake. No fever chills or other complaints.
History of diverticulitis x 2. Was told if he had a third episode he would require resection
On exam patient is nontoxic in no distress. He has no significant pain at rest now lungs are clear and equal. Regular rate and rhythm. Abdomen soft. No localized tenderness. Very minimal nonlocalizing left-sided tenderness. No rebound or
guarding no mass or hernia.
CT shows mild diverticulitis. Discussed admission versus outpatient management. Very reasonable to do outpatient management. Patient is comfortable with this approach. Stressed close follow-up. He is aware of his stable aneurysm.
Discharge Plan
Departure
Patient Disposition: Admit
Date of Disposition: 02/15/24
Time of Disposition: 15:08
Admit to: Med/Surg
Admit to doctor: hospitalist
Presentation/result/management discussed w/ accepting MD/DO: Hospitalist
Patient with high blood pressure during this ER visit?: Yes
Condition: Fair
Covid-19: Not Applicable
Discharge Problem:
Diverticulitis
Prescriptions:
No Action
atorvastatin 10 MG tablet
10 mg PO DAILY
amlodipine 5 MG tablet
5 mg PO DAILY Qty: 0 0RF
prednisone 5 mg tablet
7.5 mg PO DAILY
losartan 50 mg Tablet
75 mg PO DAILY
levothyroxine 137 mcg Tablet
137 mcg PO DAILY
amoxicillin-pot clavulanate 875-125 mg Tablet
1 tab PO Q12 10 Days Qty: 20 0RF
Referrals:
Dale Lr DO [Family Provider] -
Interventions
Interventions:
*Risk Screen - Suicide Last Done: 02/15/24 09:05
*General Assessment Last Done: 02/15/24 09:05
*Neglect/Abuse Screening Last Done: 02/15/24 09:05
ED- Fall Risk Assessment Last Done: 02/15/24 10:10
*ED COVID-19 Vaccine History Last Done: 02/15/24 10:10
GW-Zhxrpy-Pkzmhlhgev Assessment Last Done: 02/15/24 10:10
Discharge Date and Time
Print Language: SINHALA
[2024-02-15] MEDS: NSS 1000 IV ×2 (10:07→19:08)
[2024-02-15 10:14] LABS: % Eosinophils 2.1 % (0-6); % Immature Granulocytes 0.4 % (0-0.5); % Lymphocytes 13.6 % (20.5-51.1); % Monocytes 9.3 % (1.7-9.3); % Neutrophils 73.6 % (42.2-75.2); Absolute Basophils 0.1 10^3/uL (0-0.2); Absolute Eosinophils 0.2 10^3/uL (0-0.7); Absolute Monocytes 0.7 10^3/uL (0.1-0.6); Absolute Neutrophils 5.2 10^3/uL (1.4-6.5); Hematocrit 39.8 % (39.0-52.0); Hemoglobin 13.8 g/dL (13.0-18.0); Mean Corp Hgb Conc. 34.7 g/dL (33.0-37.0); Mean Corpuscular Hgb 28.2 pg (27.0-31.0); Mean Corpuscular Volume 81.2 fL (80.0-94.0); Mean Platelet Volume 9.2 fL (7.4-10.4); Nucleated Red Blood Cells % 0 % (-); Platelet Count 168 10^3/uL (130-400); Red Cell Dist. Width 13.9 % (11.5-14.5)
[2024-02-15 10:32] LABS: Blood Urea Nitrogen 17 mg/dl (9-20); Calcium 9.8 mg/dl (8.4-10.2); Carbon Dioxide 24 mmol/L (22-30); Chloride 100 mmol/L (98-107); Glucose 94 mg/dl (70-99); Lipase 37 U/L (23-300); Sodium 137 mmol/L (135-145); eGFR > 60.00
[2024-02-15 12:22] VITALS: BP 145/81
[2024-02-15 13:09] LABS: Urine Albumin Negative (Neg - Trace); Urine Bilirubin Negative (Negative); Urine Character Clear (Clear); Urine Color Yellow; Urine Glucose Negative (Negative); Urine Ketone 2+ (Negative); Urine Leukocyte Negative (Negative); Urine Nitrite Negative (Negative); Urine Occult Blood 1+ (Negative); Urine Urobilinogen Negative (Neg - 1+)
[2024-02-15 13:33] LABS: Urine Mucus Few
[2024-02-15 13:34] LABS: Urine Bacteria Few (Negative)
[2024-02-15 15:10] VITALS: BP 151/69
--- NOTE | 2024-02-15 15:19 | HPS.HSE ---
Addendum entered and electronically signed by Efren Donovan DO 02/15/24 17:18:
Patient seen and examined independently. Agree with findings and plan as set forth by LEO Dudley.
Patient is a 73y M with PMH significant for hypertension and diverticular disease who presents to ED complaining of lower abdominal pain since . Today developed nausea and unable to tolerate PO intake. Patient presented to the ED for
further evaluation. CT shows recurrent sigmoid diverticulitis. 3rd episode in the past 12 months.
Ass:
Sigmoid Diverticulitis
Hypothyroidism
Adrenal Insufficiency
Benign Hypertension
Plan:
Admit for further evaluation and treatment.
NPO, IVFs, pain control.
IV abx with Zosyn for now.
Colorectal Surgery evaluation appreciated - likely plan for eventual sigmoid resection given recurrences.
Continue current prednisone for now - change to pulse dose hydrocortisone oif any hypotension, etc.
Original Note:
Family Physician
-
Family Physician: Dale Lr
Chief Complaint
-
Mid lower abdominal pain
History of Present Illness
73-year-old male with past medical history of perforated diverticulitis hypertension high cholesterol presented with mid lower abdominal pain since . Patient not able to tolerate any oral intake. Stated multiple episodes of watery
diarrhea, nausea and vomiting. Denied any hematemesis or bloody diarrhea. Patient denied any headache, dizziness, syncopal episode. Patient denied any fever or chills chest pain short of breath. Patient has a cough since yesterday. Denied
dysuria hematuria.
CT with diverticulitis. Patient received Cipro and Flagyl in ER. Admitting for further management.
Medical History
Past Medical History
Past Medical History: Reports Other
Additional Past Medical History:
HTn
diverticulitis
Her cholesterol
Melanoma stage III
Past Surgical History: Reports Other
Additional Past Surgical History:
Neck tumor removed
Right hip replacement
Left knee tendon repair
Social History
Tobacco: Non-smoker
Alcohol: Occasional
Drug: None
Personal:
Living: With Family
Family History
Family History: Not pertinent
Allergies / Home Medications
Allergies reflects when Allergies were last updated in [employer].
Home Medications with original date entered in [employer]
Allergy/Medication List:
Allergies
Allergy/AdvReac Type Severity Reaction Status Date / Time
lisinopril AdvReac COUGH Verified 02/15/24 09:04
Home Medications
atorvastatin 10 mg tablet 10 mg PO DAILY High cholesterol 03/14/21
prednisone 5 mg tablet 7.5 mg PO DAILY adrenal insufficiency 03/23/23
amlodipine 5 mg tablet 5 mg PO DAILY Blood pressure #0 tabs 05/17/23
levothyroxine 137 mcg tablet 137 mcg PO DAILY Thyroid 12/29/23
losartan 50 mg tablet 75 mg PO DAILY Blood Pressure 12/29/23
Review of Systems
-
Constitutional: Reports No Symptoms
EENT: Reports No Symptoms
Respiratory: Reports No Symptoms
Cardiac: Reports No Symptoms
Abdomen/GI: Reports Abdominal Pain, Nausea, Vomiting and Diarrhea
: Reports No Symptoms
Musculoskeletal: Reports No Symptoms
Skin: Reports No Symptoms
Neurological: Reports No Symptoms
Endocrine: Reports No Symptoms
Hematologic/Lymphatic: Reports No Symptoms
Psych: Reports No Symptoms
Physical Exam
Vital Signs
Vital Signs
Temp Pulse Resp BP Pulse Ox
98.6 F 65 16 151/69 97
02/15/24 12:22 02/15/24 15:10 02/15/24 15:10 02/15/24 15:10 02/15/24 15:10
Physical Exam
General: Well Developed, Well Nourished and No Apparent Distress
HEENT: NormoCephalic, Moist mucous membranes and Atraumatic
Respiratory: Clear
Cardiac: S1/S2 and Regular Rhythm; No Murmur or Rub
GI: Soft, Non Tender, Non Distended and Normal Bowel Sounds; No Organomegaly
Rectal: Deferred by Provider
Musculoskeletal: No Clubbing, No Cyanosis and No Edema
Skin: No Rash
Neuro: AO x 3 and Nonfocal/grossly intact
Psych: Calm
Laboratory Results
-
02/15/24 10:03
02/15/24 10:03
Laboratory Results
Total Bilirubin Cancelled 02/15/24 10:03
AST Cancelled 02/15/24 10:03
ALT Cancelled 02/15/24 10:03
Alkaline Phosphatase Cancelled 02/15/24 10:03
Lipase 37 U/L (23-300) 02/15/24 10:03
Data Reviewed
-
CT Scan: Report Reviewed by me
Lab Data: Labs Reviewed by me
Impression/Plan
-
#diverticulitis
-keep patient nPO, advance as tolerated
-Zosyn continued
-surgery consulted
-chest x ray with no acute disease
-CT abdomen pelvis with Diverticuli are present in the colon.There is mild hazy pericolonic inflammatory stranding at the proximal sigmoid colon along a 7 cm in length nondistended segment suggesting diverticulitis Stable 5 cm infrarenal abdominal
aortic aneurysm with eccentric thrombus
#adrenal Insufficiency
- Reportedly secondary to immunotherapy / cancer treatment.
- Prednisone continued
#Hypothyroidism
- Continue current T4 replacement.
#Benign Hypertension
- Norvasc and losartan continued with hold parameters
#Malignant Melanoma - In Remission
- s/p excision / neck dissection and immunotherapy.
- No longer on active treatment.
- No acute / active issues.
#DVT Prophylaxis: Lovenox
#Code Status: DNR
[2024-02-15] MEDS: FLAGYL 500 MG 100 IV (15:36)
--- NOTE | 2024-02-15 15:42 | CON.CRS ---
Consultation
-
Date/Time Consultation Requested: 02/15/2024, 15:30
Date/Time Consultation Performed: 02/15/2024, 15:45
Requesting Provider: Rosetta Hanson
Performing Provider: Shade Dinero MD
Reason for Consultation: diverticulits
Medical History
-
Chief Complaint: abdominal pain
History of Present Illness:
73-year-old male with 2 prior attacks of diverticulitis, presents today due to abdominal pain and nausea 2 days ago. The first attack was in March 2023 and involve the distal descending colon. This was confirmed on CT. The last attack was in
December 2023 and showed sigmoid diverticulitis on TV. His last colonoscopy was by Dr. Cotter per patient and was negative for polyps. This was in August 2023. He presents with 2 days worth of abdominal pain. He states that he knew it was
diverticulitis and came to the ER. His WBC is 7.0. He remains afebrile. The CT of the abdomen and pelvis showed diverticuli present in the colon and a mild hazy pericolonic inflammatory stranding at the proximal sigmoid colon suggesting
diverticulitis. We have been consulted for further surgical opinion.
Past Medical History
Past Medical History: Other (HTN, Hypothyroidism and Other (Malignant melanoma status post excision and immunotherapy; adrenal insufficiency; Gilbert's syndrome))
Past Surgical History: Other ((Melanoma excision with neck dissection; left quadriceps repair; right hip surgery))
Social History
Tobacco: Non-Smoker
Alcohol: None
Family History
Family History: Reviewed & Not Pertinent
Allergies / Home Medications
Allergy/AdvReac Type Severity Reaction Status Date / Time
lisinopril AdvReac COUGH Verified 02/15/24 09:04
�Medication �Instructions �Recorded �Confirmed �Type
atorvastatin 10 mg tablet 10 mg PO DAILY High cholesterol 03/14/21 02/15/24 History
prednisone 5 mg tablet 7.5 mg PO DAILY adrenal 03/23/23 02/15/24 History
insufficiency
amlodipine 5 mg tablet 5 mg PO DAILY Blood pressure #0 05/17/23 02/15/24 Rx
tabs
levothyroxine 137 mcg tablet 137 mcg PO DAILY Thyroid 12/29/23 02/15/24 History
losartan 50 mg tablet 75 mg PO DAILY Blood Pressure 12/29/23 02/15/24 History
Review of Systems
-
History Source: Patient
All other systems: Negative unless noted
Abdomen/GI: Abdominal Pain and Nausea
A 10 point review of systems was completed, and was negative except as per HPI.
Physical Exam
Vital Signs
Temp 98.6 F 02/15/24 12:22
Pulse 65 02/15/24 15:10
Resp Rate 16 02/15/24 15:10
Blood pressure 151/69 02/15/24 15:10
SaO2 97 02/15/24 15:10
Lab Results / Allergies
02/15/24 10:03
02/15/24 10:03
WBC 7.0 10^3/uL (4.8-10.8) 02/15/24 10:03
Hgb 13.8 g/dL (13.0-18.0) 02/15/24 10:03
Hct 39.8 % (39.0-52.0) 02/15/24 10:03
Plt Count 168 10^3/uL (130-400) 02/15/24 10:03
Abs Immat Gran (auto) 0.0 10^3/uL (0-0.05) 02/15/24 10:03
Neutrophils % 73.6 % (42.2-75.2) 02/15/24 10:03
Allergy/AdvReac Type Severity Reaction Status Date / Time
lisinopril AdvReac COUGH Verified 02/15/24 09:04
Physical Exam
General: Well Developed, Well Nourished and No Apparent Distress
GI: Soft, Non Distended and Tender (LLQ)
Skin: Warm and Dry
Neuro: AO x 3
Data Reviewed
-
CT Scan: Image Personally Visualized and interpreted, Report Reviewed by me and Discussed with Patient
Labs: Labs Reviewed by me, Discussed with Physician and Discussed with Patient
Old Records: Reviewed
Assessment / Plan
-
Assessment: 73-year-old male with his third CT confirmed attack of sigmoid diverticulitis
Plan:
-No plans for urgent surgery at this time. Will discuss elective surgery as an outpatient once this attack is resolved.
-Remain n.p.o.
-IV fluids and IV antibiotics
-Will follow
[2024-02-15] MEDS: DILAUDID 1 MG IV ×2 (17:12→22:54)
[2024-02-15] MEDS: CIPRO 400 MG 200 IV (17:15)
[2024-02-15 17:24] VITALS: BP 145/98
[2024-02-15 18:27] VITALS: BP 174/92
[2024-02-15 18:28] VITALS: BMI 29.9
[2024-02-15] MEDS: LOVENOX 40 MG SC (19:07)
[2024-02-15] MEDS: ZOSYN 50 IV (19:08)
[2024-02-15] MEDS: ZOFRAN 4 MG IV (22:46)
[2024-02-15 23:33] VITALS: BP 120/50
[2024-02-16] MEDS: ZOSYN 50 IV ×4 (00:23→18:07)
[2024-02-16] MEDS: DILAUDID 1 MG IV ×4 (03:35→22:34)
[2024-02-16 05:50] VITALS: BMI 29.9
[2024-02-16] MEDS: ZOFRAN 4 MG IV ×2 (06:00→18:31)
[2024-02-16] MEDS: SYNTHROID 137 MCG PO (06:00)
[2024-02-16 07:00] VITALS: BP 153/88
[2024-02-16] MEDS: DELTASONE 7.5 MG PO (08:33)
[2024-02-16] MEDS: NORVASC 5 MG PO (08:34)
[2024-02-16] MEDS: LIPITOR 10 MG PO (08:34)
[2024-02-16] MEDS: COZAAR 75 MG PO (08:35)
[2024-02-16 08:52] LABS: Hematocrit 37.6 % (39.0-52.0); Hemoglobin 13.2 g/dL (13.0-18.0); Mean Corp Hgb Conc. 35.1 g/dL (33.0-37.0); Mean Corpuscular Hgb 28.4 pg (27.0-31.0); Mean Corpuscular Volume 80.9 fL (80.0-94.0); Mean Platelet Volume 9.5 fL (7.4-10.4); Platelet Count 145 10^3/uL (130-400); Red Blood Cell Count 4.65 10^6/uL (4.70-6.10); Red Cell Dist. Width 13.8 % (11.5-14.5); White Blood Cell Count 5.9 10^3/uL (4.8-10.8)
[2024-02-16] MEDS: NSS (PRESERVATIVE FREE) 10 ML IV (09:40)
[2024-02-16] MEDS: PROTONIX IV 40 MG IV (09:40)
[2024-02-16] MEDS: NSS 1000 IV (09:45)
[2024-02-16 10:23] LABS: Blood Urea Nitrogen 18 mg/dl (9-20); Calcium 9.2 mg/dl (8.4-10.2); Carbon Dioxide 24 mmol/L (22-30); Chloride 102 mmol/L (98-107); Estimated Creatinine Clearance 93 ml/min; Glucose 90 mg/dl (70-99); Potassium 3.8 mmol/L (3.5-5.1); Sodium 137 mmol/L (135-145); eGFR > 60.00
--- NOTE | 2024-02-16 11:49 | W.PN.HOSP.TC ---
Today's Communication/Plan
-
monitor vitals
see plan
colorectal following
clears
abx
vascular eval
Assessment / Plan
Assessment / Plan
General: Well Developed, Well Nourished and No Apparent Distress
HEENT: NormoCephalic, Moist mucous membranes and Atraumatic
Respiratory: Clear
Cardiac: S1/S2 and Regular Rhythm; No Murmur or Rub
GI: Soft, Non Tender, Non Distended and Normal Bowel Sounds
Musculoskeletal:No Edema
Neuro: AO x 3 and Nonfocal/grossly intact
Psych: Calm
Acute diverticulitis
now started on clears
-Zosyn continued
-surgery following
-chest x ray with no acute disease
-CT abdomen pelvis with Diverticuli are present in the colon.There is mild hazy pericolonic inflammatory stranding at the proximal sigmoid colon along a 7 cm in length nondistended segment suggesting diverticulitis Stable 5 cm infrarenal abdominal
aortic aneurysm with eccentric thrombus
AAA
per patient he does get US serially and per him it used to be in 2's range
CT from 04/11 was 4.9cm and now 5cm
vascular evaluation
#adrenal Insufficiency
- Reportedly secondary to immunotherapy / cancer treatment.
- Prednisone continued
#Hypothyroidism
- Continue current T4 replacement.
#Benign Hypertension
- Norvasc and losartan continued with hold parameters
#Malignant Melanoma - In Remission
- s/p excision / neck dissection and immunotherapy.
- No longer on active treatment.
- No acute / active issues.
#DVT Prophylaxis: Lovenox
#Code Status: DNR
Anticipated Discharge: > 48 hours
Subjective/Interval History
-
Date of Service: February 16, 2024
has pain
Objective Data
-
Labs:
Laboratory Results
02/16/24 02/16/24
08:30 09:59
WBC 5.9
Hgb 13.2
Hct 37.6 L
Plt Count 145
Sodium Cancelled 137
Potassium Cancelled 3.8
Chloride Cancelled 102
Carbon Dioxide Cancelled 24
BUN Cancelled 18
Creatinine Cancelled 0.8
Glucose Cancelled 90
Calcium Cancelled 9.2
Vital Signs:
Vital Signs
Temp Pulse Resp BP Pulse Ox
98.6 F 66 16 153/88 96
02/16/24 07:00 02/16/24 08:34 02/16/24 07:00 02/16/24 08:34 02/16/24 07:00
--- NOTE | 2024-02-16 11:56 | W.PN.CRS1 ---
Today's Communication / Plan
-
clears
I/S
Assessment/Plan
-
Assessment: 73-year-old male with his third CT confirmed attack of sigmoid diverticulitis
Plan:
-No plans for urgent surgery at this time. Will discuss elective surgery as an outpatient once this attack is resolved.
-Advance diet to clears
-Vascular consult during this admission due to AAA
-Incentive spirometry
-IV fluids and IV antibiotics
-Will follow
Subjective Data
Subjective Data
Date of Service: February 16, 2024
Patient states he had 'a rough night'. His pain is a little worse. He had some nausea. He has diarrhea.
Objective Data
-
Vital Signs
Temp Pulse Resp BP Pulse Ox
98.6 F 66 16 153/88 96
02/16/24 07:00 02/16/24 08:34 02/16/24 07:00 02/16/24 08:34 02/16/24 07:00
Lab Results
02/16/24 08:30
02/16/24 09:59
Physical Exam
-
General: No Acute Distress and AOx3
Abdomen: Soft, Non Distended and Tender (LLQ)
Skin: Warm and Dry
[2024-02-16 15:00] VITALS: BP 143/74
--- NOTE | 2024-02-16 15:08 | CM ---
Alert awake oriented patient who lives with his Ashley who lives in a 2 story home with 0 step to enter and 0 steps to bed and bathroom. He is independent in driving and in all activities of daily living.He was offered VN he declined need.No
adaptive devices.
No VN hx / No SNF history
Pharmacy [facility]
PCP DR Lr
PLAN Home Declined VN
[2024-02-16] MEDS: LOVENOX 40 MG SC (18:07)
[2024-02-16 23:04] VITALS: BP 156/88
[2024-02-17] MEDS: ZOFRAN 4 MG IV ×2 (00:07→23:43)
[2024-02-17] MEDS: ZOSYN 50 IV ×5 (00:08→23:43)
[2024-02-17] MEDS: NSS 1000 IV (00:53)
[2024-02-17] MEDS: DILAUDID 1 MG IV ×4 (05:06→23:43)
[2024-02-17] MEDS: SYNTHROID 137 MCG PO (05:35)
[2024-02-17 06:54] LABS: Hematocrit 36.2 % (39.0-52.0); Hemoglobin 12.5 g/dL (13.0-18.0); Mean Corp Hgb Conc. 34.5 g/dL (33.0-37.0); Mean Corpuscular Hgb 29.2 pg (27.0-31.0); Mean Corpuscular Volume 84.6 fL (80.0-94.0); Mean Platelet Volume 9.5 fL (7.4-10.4); Platelet Count 154 10^3/uL (130-400); Red Blood Cell Count 4.28 10^6/uL (4.70-6.10); Red Cell Dist. Width 13.7 % (11.5-14.5); White Blood Cell Count 5.9 10^3/uL (4.8-10.8)
[2024-02-17 07:14] VITALS: BP 155/75
[2024-02-17 07:21] LABS: Blood Urea Nitrogen 12 mg/dl (9-20); Calcium 8.7 mg/dl (8.4-10.2); Carbon Dioxide 26 mmol/L (22-30); Chloride 100 mmol/L (98-107); Estimated Creatinine Clearance 106 ml/min; Glucose 101 mg/dl (70-99); Potassium 3.6 mmol/L (3.5-5.1); Sodium 138 mmol/L (135-145); eGFR > 60.00
[2024-02-17] MEDS: LIPITOR 10 MG PO (07:43)
[2024-02-17] MEDS: NORVASC 5 MG PO (07:45)
[2024-02-17] MEDS: COZAAR 75 MG PO (07:46)
[2024-02-17] MEDS: NSS (PRESERVATIVE FREE) 10 ML IV (07:47)
[2024-02-17] MEDS: PROTONIX IV 40 MG IV (07:48)
--- NOTE | 2024-02-17 09:04 | W.PN.CRS1 ---
Today's Communication / Plan
-
As below
Assessment/Plan
-
73-year-old male with PMH of recurrent diverticulitis and AAA who presented with recurrent abdominal pain, CT showing mild sigmoid diverticulitis with stable AAA and intramural thrombus; being treated nonoperatively with improvement
AFVSS
WBC 5.9
� Okay to advance to full liquids
� Continue pain control with Tylenol and Dilaudid as needed
� Continue Zosyn for 7 to 10-day course
� Recommend vascular surgery consult regarding AAA with eccentric thrombus; I suspect the patient will need therapeutic anticoagulation, which is okay from colorectal standpoint
� Continue DVT PPx with Lovenox
� Appreciate hospitalist; follow-up left foot x-ray for left ankle pain
Subjective Data
Subjective Data
Date of Service: February 17, 2024
Overnight, developed left ankle pain, on route to get an x-ray.
Denies abdominal pain.
Denies nausea/vomiting. Tolerating diet.
+flatus +BMs (last BM 2 days ago) +voiding
Objective Data
-
Vital Signs
Temp Pulse Resp BP Pulse Ox
99.5 F 70 18 155/75 98
02/17/24 07:14 02/17/24 07:14 02/17/24 07:14 02/17/24 07:14 02/17/24 07:14
Intake & Output
02/16/24 02/17/24 02/18/24
06:59 06:59 06:59
Intake Total 1320 / 1320
Output Total 925 / 925
Balance 395 / 395
Intake:
Oral fluids 1320 / 1320
Output:
Urine, Voided 925 / 925
Other:
Number of approximated MODERATE 2
amounts of urine
Lab Results
02/17/24 06:03
09/30/24 06:03
Physical Exam
-
General: No Acute Distress and AOx3
HEENT: Grossly Normal
Abdomen: Soft, Non Distended and Non Tender
Skin: Warm and Dry
[2024-02-17] MEDS: SOLU-CORTEF 50 MG IV ×2 (09:06→19:33)
--- NOTE | 2024-02-17 10:12 | W.PN.HOSP.TC ---
Addendum entered and electronically signed by Lukasz Mclain MD 02/17/24 17:30:
Addendum
I reviewed vascular and surgery notes, input appreciated
Will hold Lovenox and avoid Toradol with 5 cm AAA, , his ankle pain is much less with steroid dose
Change to low dose SQ heparin for DVT prophylaxis.
medically stable, plan favors repair of AAA in near future. will f/w US of low extremities
End
Original Note:
Today's Communication/Plan
-
treat left ankle pain/swelling with steroid and Toradol
f/w vascular consult recommendations
IV Abx for diverticulitis
Add PRN hydralazine
Assessment / Plan
Assessment / Plan
Physical exam:
General: Well Developed, Well Nourished and No Apparent Distress
HEENT: NormoCephalic, Moist mucous membranes and Atraumatic
Respiratory: Clear
Cardiac: S1/S2 and Regular Rhythm; No Murmur or Rub
GI: Soft, Non Tender, Non Distended and Normal Bowel Sounds
Musculoskeletal:No Edema in legs. Left ankle mild swelling, no erythema, tenderness upon palpation lateral side
Neuro: AO x 3 and Nonfocal/grossly intact
Psych: Calm
# Acute severe pain in left ankle
Left ankle swelling and edema, pain over night( could not sleep), using ice packs
Left ankle prior constructive surgery
Tender but no redness
WBC is normal, no feevrs
Did x ray, no acute fracture or effusion noted, possible inflammatory arthritis ( gout Vs pseudogout) due to ongoing stress with infection.
Will help to give stress dose steroid and also give Toradol one time dose to help
# Acute diverticulitis
now started on clears
Less abdominal pain over night
-Zosyn continued
-surgery following, help appreciated
-chest x ray with no acute disease
-CT abdomen pelvis with Diverticuli are present in the colon.There is mild hazy pericolonic inflammatory stranding at the proximal sigmoid colon along a 7 cm in length nondistended segment suggesting diverticulitis Stable 5 cm infrarenal abdominal
aortic aneurysm with eccentric thrombus
AAA
Stable blood pressure
Abdominal pain c/w the infection
per patient he does get US serially and per him it used to be in 2's range
CT from 04/11 was 4.9cm and now 5cm
vascular evaluation
#adrenal Insufficiency
- Reportedly secondary to immunotherapy / cancer treatment.
- Prednisone 7.5 mg daily
will do IV hydrocortisone for now which will also help with inflammation in left ankle
#Hypothyroidism
- Continue current T4 replacement.
#Benign Hypertension
Slightly uncontrolled, add PRN Hydralazine
- Norvasc and losartan continued with hold parameters
#Malignant Melanoma - In Remission
- s/p excision / neck dissection and immunotherapy.
- No longer on active treatment.
- No acute / active issues.
#DVT Prophylaxis: Lovenox
#Code Status: DNR
Total time spent to see the patient, examine the patient on the floor, review data and lab results, discuss treatment plan with patient, nursing staff around 55 minutes
Anticipated Discharge: > 48 hours
Subjective/Interval History
-
Date of Service: February 17, 2024
Left ankle pain and swelling
No fevers
Not passing gas
Less abdominal pain
Objective Data
-
Labs:
Laboratory Results
02/17/24
06:03
WBC 5.9
Hgb 12.5 L
Hct 36.2 L
Plt Count 154
Sodium 138
Potassium 3.6
Chloride 100
Carbon Dioxide 26
BUN 12
Creatinine 0.7
Glucose 101 H
Calcium 8.7
Vital Signs:
Vital Signs
Temp Pulse Resp BP Pulse Ox
99.5 F 70 18 155/75 98
09/30/24 07:14 02/17/24 07:14 02/17/24 07:14 02/17/24 07:14 02/17/24 07:14
I&O
02/16/24 02/17/24 02/18/24
06:59 06:59 06:59
Intake Total 1320 / 1320
Output Total 925 / 925
Balance 395 / 395
[2024-02-17 11:32] VITALS: BP 127/67
--- NOTE | 2024-02-17 13:22 | W.PN.UPDATE ---
Update Note
Progress Note Update
Seen and evaluated with ASHLEY Parsons. Full consultation to follow. Briefly 73-year-old male who presents with recurrent diverticulitis. Was seen by Dr. Dinero and plan for possible colectomy due to recurrent diverticulitis. However we were asked to
evaluate regarding abdominal aortic aneurysm. Patient notes that he is known of an aortic aneurysm for a few years now (at least 5 years). Was initially discovered when he underwent metastatic workup for malignant melanoma at [facility]
[place]. Notes that it was measured at 2.5 cm then. Patient denies any family history of aneurysms. Denies any tobacco use. Aside from his flareups of diverticulitis, no constant abdominal pain. Currently not having significant pain but
minimal suprapubic left-sided pain. On exam/he is awake and alert. Head is normocephalic and atraumatic. Eyes are anicteric. Neck is soft without jugular venous distention. Breathing is unlabored. 2+ upper extremity radial pulses palpable
bilaterally. Abdomen is soft, nondistended, nontender. Lower extremity with 2+ femoral pulses, 2+/3+ popliteal pulses, 2+ pedal pulses palpable bilaterally. Feet are both pink and warm.
Plan/ AAA - I reviewed CT scan imaging dated 02/15/2024. I also compared [id number] with CT scan imaging dated 03/23/2023 which is over 6 months prior (see pictures below). This aortic aneurysm appears grossly unchanged. There is some tortuosity
in the aorta distally that accounts for likely a slight overestimation in the long axis measurement (currently measuring 5 cm prior was 4.9 cm). However it does approach size for repair, and given posterior saccular protrusion, would likely
recommend elective repair at this time. Based on anatomic appearance, would be a candidate for stent grafting. Will discuss with Dr. Dinero regarding timing of intervention. I think it would be reasonable given recurrent diverticulitis to proceed
with colectomy if needed given stability of aneurysm over the last 6 months. However, if would favor aneurysm management first, can electively fix that and then patient can electively undergo colon surgery patient is very anxious regarding the
aneurysm. He has recently had a friend who from a ruptured aneurysm. Of note we will obtain duplex imaging as well to rule out popliteal artery aneurysms.
[2024-02-17] MEDS: NSS IV (13:40)
[2024-02-17 15:44] VITALS: BP 140/76
--- NOTE | 2024-02-17 15:53 | CON.VAS ---
Consultation
Consultation Request
Date/Time Consultation Performed: 02/17/24 1315
Requesting Provider: Hospitalist
Performing Provider: ILSA Tafoya for Brian Tillman MD
Reason for Consultation: AAA
Medical History
-
Chief Complaint: Abdominal pain
History of Present Illness:
This is 73-year-old male with significant past medical history for hypertension, hypercholesterolemia, diverticulitis, and stage III melanoma now in remission who presents with recurrent diverticulitis. He is being followed by Dr. Dinero and plan
for possible colectomy due to recurrent diverticulitis. However, we were asked to evaluate regarding abdominal aortic aneurysm. Patient notes that he is known of an aortic aneurysm for a few years now (at least 5 years) as it was discovered while
he was undergoing workup for his cancer treatment/diagnosis at [facility]. He endorses that it was measured at 2.5 cm at the time of initial scanning. Patient denies any family history of aneurysms. Denies any tobacco use. Aside
from his flareups of diverticulitis, no constant abdominal pain. Currently not having significant pain but minimal suprapubic left-sided pain. Denies ever seeing a vascular surgeon or vascular surgical intervention in the past.
Past Medical History
Past Medical History: HTN, Hypercholesterolemia and Other (Diverticulitis, melanoma stage III)
Past Surgical History: Other (Neck tumor resection, right hip replacement, left knee tendon repair)
Social History
Tobacco: Non-Smoker
Alcohol: Occasional
Drug: None
Personal:
Living: With Family
Allergies / Home Medications
Allergy/AdvReac Type Severity Reaction Status Date / Time
lisinopril AdvReac COUGH Verified 02/15/24 09:04
�Medication �Instructions �Recorded �Confirmed �Type
atorvastatin 10 mg tablet 10 mg PO DAILY High cholesterol 03/14/21 02/15/24 History
prednisone 5 mg tablet 7.5 mg PO DAILY adrenal 03/23/23 02/15/24 History
insufficiency
amlodipine 5 mg tablet 5 mg PO DAILY Blood pressure #0 05/17/23 02/15/24 Rx
tabs
levothyroxine 137 mcg tablet 137 mcg PO DAILY Thyroid 12/29/23 02/15/24 History
losartan 50 mg tablet 75 mg PO DAILY Blood Pressure 12/29/23 02/15/24 History
Review of Systems
-
History Source: Patient
Constitutional: Reports No Symptoms
EENT: Reports No Symptoms
Respiratory: Reports No Symptoms
Cardiac: Reports No Symptoms
Vascular: Denies Leg Pain / Claudication, Numbness or Tingling
Abdomen/GI: Reports Abdominal Pain
: Reports No Symptoms
Musculoskeletal: Reports No Symptoms
Skin: Reports No Symptoms
Neurological: Reports No Symptoms
Endocrine: Reports No Symptoms
Physical Exam
Vital Signs
Temp Pulse Resp BP Pulse Ox
99.2 F 71 16 140/76 97
02/17/24 15:44 02/17/24 15:44 02/17/24 15:44 02/17/24 15:44 02/17/24 15:44
Lab Results
02/17/24 06:03
02/17/24 06:03
Physical Exam
General: No Apparent Distress and Comfortable
HEENT: Normocephalic, Anicteric and Atraumatic
Respiratory: Non Labored Respirations
Cardiac: Negative JVD
GI: Soft, Non Tender and Non Distended
Musculoskeletal: No Edema
Skin: Warm
Neuro: AO x 3
Pulses: Bilateral Femoral: +2, Bilateral Popliteal: +2, Bilateral Dorsalis Pedis: +2 and Bilateral Posterior Tibial: +2
Assessment / Plan
-
Assessment: 73-year-old male admitted for diverticulitis management with known history of AAA
Plan:
CT scan reviewed/results as was CT from 03/23/2023 his aortic aneurysm appears grossly unchanged. However it is approaching size for repair, and given posterior saccular protrusion, would likely recommend elective repair at this time. Based on
anatomic appearance, would be a candidate for stent grafting. Dr. Tillman will discuss with Dr. Dinero regarding timing of intervention.
Will additionally obtain duplex imaging to rule out popliteal artery aneurysms.
[2024-02-17] MEDS: LOVENOX 40 MG SC (17:03)
[2024-02-17] MEDS: HEPARIN 5000 UNITS SC (19:28)
[2024-02-17 23:10] VITALS: BP 129/89
--- NOTE | 2024-02-17 23:12 | PTCARENOTE ---
Pt complaining of dry eyes. Pt claims that he uses eye drops at home prn. PHYS ASSISTANT made aware, order obtained for refresh eye drops prn. Care ongoing.
[2024-02-17] MEDS: REFRESH EYE DROPS (PF) 1 DROPS BOTH EYES (23:43)
[2024-02-18] MEDS: TYLENOL 650 MG PO (00:27)
[2024-02-18] MEDS: ZOSYN 50 IV ×2 (05:40→11:48)
[2024-02-18] MEDS: SYNTHROID 137 MCG PO (05:40)
[2024-02-18 06:00] VITALS: BMI 30.4
[2024-02-18 07:32] VITALS: BP 155/81
[2024-02-18] MEDS: NORVASC 5 MG PO (07:46)
[2024-02-18] MEDS: SOLU-CORTEF 50 MG IV (07:47)
[2024-02-18] MEDS: COZAAR 75 MG PO (07:47)
[2024-02-18] MEDS: LIPITOR 10 MG PO (07:47)
[2024-02-18] MEDS: DILAUDID 1 MG IV ×3 (07:48→21:02)
[2024-02-18] MEDS: NSS (PRESERVATIVE FREE) 10 ML IV (07:48)
[2024-02-18] MEDS: PROTONIX IV 40 MG IV (07:48)
[2024-02-18] MEDS: HEPARIN 5000 UNITS SC ×2 (07:49→20:52)
[2024-02-18 07:54] LABS: Hematocrit 32.1 % (39.0-52.0); Mean Corp Hgb Conc. 34.3 g/dL (33.0-37.0); Mean Corpuscular Hgb 28.2 pg (27.0-31.0); Mean Corpuscular Volume 82.3 fL (80.0-94.0); Mean Platelet Volume 9.5 fL (7.4-10.4); Platelet Count 151 10^3/uL (130-400); Red Cell Dist. Width 13.6 % (11.5-14.5)
[2024-02-18] MEDS: ZOFRAN 4 MG IV ×2 (08:05→21:02)
[2024-02-18 08:25] LABS: Blood Urea Nitrogen 10 mg/dl (9-20); Calcium 8.9 mg/dl (8.4-10.2); Carbon Dioxide 30 mmol/L (22-30); Chloride 100 mmol/L (98-107); Estimated Creatinine Clearance 119 ml/min; Glucose 104 mg/dl (70-99); Potassium 4.1 mmol/L (3.5-5.1); Sodium 140 mmol/L (135-145); eGFR > 60.00
--- NOTE | 2024-02-18 08:53 | W.PN.HOSP.TC ---
Today's Communication/Plan
-
f/w US of lower legs
c/w IV hydrocortisone
Will d/w podiatry regarding left foot arthritis
Assessment / Plan
Assessment / Plan
Physical exam:
General: Well Developed, Well Nourished and No Apparent Distress
HEENT: NormoCephalic, Moist mucous membranes and Atraumatic
Respiratory: Clear
Cardiac: S1/S2 and Regular Rhythm; No Murmur or Rub
GI: Soft, Non Tender, Non Distended and Normal Bowel Sounds
Musculoskeletal:No Edema in legs. Left ankle mild swelling, no erythema, tenderness upon palpation lateral side
Neuro: AO x 3 and Nonfocal/grossly intact
Psych: Calm
# Acute severe pain in left ankle
Left ankle swelling and edema, pain over night( could not sleep), using ice packs
Left ankle prior constructive surgery
Tender but no redness
WBC is normal, no fever.
Did x ray, no acute fracture or effusion noted, possible inflammatory arthritis ( gout Vs pseudogout) due to ongoing stress with infection.
Will help to give stress dose steroid and also give Toradol one time dose to help
Will ask podiatry to review.
# Acute diverticulitis
now started on clears then advanced to full liquid. He seems to tolerate it
Less abdominal pain over night
-Zosyn continued
-surgery following, help appreciated
-chest x ray with no acute disease
-CT abdomen pelvis with Diverticuli are present in the colon.There is mild hazy pericolonic inflammatory stranding at the proximal sigmoid colon along a 7 cm in length nondistended segment suggesting diverticulitis Stable 5 cm infrarenal abdominal
aortic aneurysm with eccentric thrombus
#AAA
Stable blood pressure
Abdominal pain c/w the infection
I reviewed vascular surgery notes, input appreciated, will f/w US of low extremities
# Mild drop in HGB, c/w dilutional
#adrenal Insufficiency
- Reportedly secondary to immunotherapy / cancer treatment.
- Prednisone 7.5 mg daily
c/w IV hydrocortisone for now which will also help with inflammation in left ankle
#Hypothyroidism
- Continue current T4 replacement.
#Benign Hypertension
Slightly uncontrolled, add PRN Hydralazine
- Norvasc and losartan continued with hold parameters
#Malignant Melanoma - In Remission
- s/p excision / neck dissection and immunotherapy.
- No longer on active treatment.
- No acute / active issues.
#DVT Prophylaxis: Lovenox
#Code Status: DNR
Total time spent to see the patient, examine the patient on the floor, review data and lab results, discuss treatment plan with patient, nursing staff around 55 minutes
Anticipated Discharge: 24 - 48 hours
Subjective/Interval History
-
Date of Service: February 18, 2024
No abdominal pain
Tolerating full liquid
Less pain in left ankle
No fevers
No chest pain
Objective Data
-
Labs:
Laboratory Results
02/18/24
07:22
WBC 5.0
Hgb 11.0 L
Hct 32.1 L
Plt Count 151
Sodium 140
Potassium 4.1
Chloride 100
Carbon Dioxide 30
BUN 10
Creatinine 0.7
Glucose 104 H
Calcium 8.9
Vital Signs:
Vital Signs
Temp Pulse Resp BP Pulse Ox
97.3 F 52 12 155/81 98
02/18/24 07:32 02/18/24 07:32 02/18/24 07:32 02/18/24 07:32 02/18/24 07:32
I&O
02/17/24 02/18/24 02/19/24
06:59 06:59 06:59
Intake Total 1320 / 1320 600 / 600
Output Total 925 / 925 775 / 775
Balance 395 / 395 -175 / -175
--- NOTE | 2024-02-18 09:28 | W.PN.UPDATE ---
Update Note
Progress Note Update
I reviewed prior imaging in addition to recent CT scan including MRI from 2021. The morphology of the aneurysm and grossly the size I do not think has changed much since then. Therefore this is likely a chronic stable aneurysm with posterior
saccular outpouching. Based on all this, and his recent issues with recurrent diverticulitis, would recommend proceeding with his colon surgery and then I can electively follow-up and/or manage his aortic aneurysm. I discussed this with
Rosette. I will see the patient in the office in a month or so and we can discuss management of the aneurysm further.
--- NOTE | 2024-02-18 12:07 | W.PN.UPDATE ---
Update Note
Progress Note Update
Updated patient and hospitalist of plans for EVAR to treat AAA to be done in outpatient setting, following colon resection with colorectal team. Will place follow up in discharge instructions.
--- NOTE | 2024-02-18 13:04 | W.PN.CRS1 ---
Today's Communication / Plan
-
Low residue
Assessment/Plan
-
73-year-old male with PMH of recurrent diverticulitis and AAA who presented with recurrent abdominal pain, CT showing mild sigmoid diverticulitis with stable AAA and intramural thrombus; being treated nonoperatively with improvement
AFVSS
WBC 5. 0
� Okay to advance to low residue diet
� Continue pain control with Tylenol and Dilaudid as needed
� Continue Zosyn for 7 to 10-day course
� Appreciate vascular consult
�Will need a sigmoidectomy planned for an elective basis to coordinate with vascular on timing
Subjective Data
Subjective Data
Date of Service: February 18, 2024
Patient states he has some mild pain. He denies nausea or vomiting. He is having bowel function. He is tolerating a full liquid diet.
Objective Data
-
Vital Signs
Temp Pulse Resp BP Pulse Ox
97.3 F 52 12 155/81 98
02/18/24 07:32 02/18/24 07:32 02/18/24 07:32 02/18/24 07:32 02/18/24 07:32
Intake & Output
02/17/24 02/18/24 02/19/24
06:59 06:59 06:59
Intake Total 1320 / 1320 600 / 600
Output Total 925 / 925 775 / 775
Balance 395 / 395 -175 / -175
Intake:
Oral fluids 1320 / 1320 600 / 600
Output:
Urine, Voided 925 / 925 775 / 775
Other:
Number of approximated MODERATE 2
amounts of urine
Lab Results
02/18/24 07:22
02/18/24 07:22
Physical Exam
-
General: No Acute Distress and AOx3
Abdomen: Soft, Non Distended and Tender (Mild left lower quadrant)
Skin: Warm and Dry
[2024-02-18 15:00] VITALS: BP 126/61
--- NOTE | 2024-02-18 16:49 | CM ---
Reviewed chart, per nursing notes, patient functionally at baseline. Will still return home when medically cleared for discharge.
Plan: Case management will continue to follow and assist with discharge planning. Home when stable. No needs.
[2024-02-18] MEDS: UNASYN IV (18:01)
[2024-02-18] MEDS: SOLU-CORTEF IV (21:00)
[2024-02-19] VITALS: BP 118/59
--- NOTE | 2024-02-19 00:23 | PTCARENOTE ---
Patient refused solumedrol dose during HS med pass. Education provided to patient on not taking a dose of steroids. Patient continued to refuse. Call castañeda within reach. Plan of care ongoing.
[2024-02-19] MEDS: UNASYN IV ×3 (05:40→11:55)
[2024-02-19] MEDS: SYNTHROID 137 MCG PO (05:40)
[2024-02-19 07:10] LABS: Hematocrit 31.6 % (39.0-52.0); Mean Corp Hgb Conc. 34.8 g/dL (33.0-37.0); Mean Corpuscular Hgb 29.5 pg (27.0-31.0); Mean Corpuscular Volume 84.7 fL (80.0-94.0); Mean Platelet Volume 9.7 fL (7.4-10.4); Platelet Count 149 10^3/uL (130-400); Red Blood Cell Count 3.73 10^6/uL (4.70-6.10); Red Cell Dist. Width 13.5 % (11.5-14.5); White Blood Cell Count 4.4 10^3/uL (4.8-10.8)
[2024-02-19 07:31] LABS: Blood Urea Nitrogen 14 mg/dl (9-20); Carbon Dioxide 34 mmol/L (22-30); Chloride 102 mmol/L (98-107); Estimated Creatinine Clearance 119 ml/min; Glucose 94 mg/dl (70-99); Potassium 4.1 mmol/L (3.5-5.1); Sodium 143 mmol/L (135-145); eGFR > 60.00
[2024-02-19 07:47] VITALS: BP 135/76
[2024-02-19] MEDS: COZAAR 75 MG PO (08:35)
[2024-02-19] MEDS: LIPITOR 10 MG PO (08:35)
[2024-02-19] MEDS: HEPARIN 5000 UNITS SC (08:37)
[2024-02-19] MEDS: SOLU-CORTEF 50 MG IV (08:37)
[2024-02-19] MEDS: NORVASC 5 MG PO (08:42)
[2024-02-19] MEDS: PROTONIX 40 MG PO (08:43)
[2024-02-19] MEDS: DILAUDID 1 MG IV (09:06)
--- NOTE | 2024-02-19 09:38 | W.PN.CRS1 ---
Today's Communication / Plan
-
as below
Assessment/Plan
-
73-year-old male with PMH of recurrent diverticulitis and AAA who presented with recurrent abdominal pain, CT showing mild sigmoid diverticulitis with stable AAA and intramural thrombus; being treated nonoperatively with improvement
AFVSS
WBC 4.4
� Continue low residue diet
� Continue pain control with Tylenol and Dilaudid as needed
� Continue Zosyn for 7 to 10-day course
� Will need vascular surgery follow-up as outpatient for possible AAA repair
� Continue DVT PPx
� Appreciate hospitalist and podiatry for left foot pain
- CRS will sign off, please call for questions or concerns; okay for discharge from CRS standpoint once medically clear; will need follow-up with Dr. Dinero in 1 to 2 weeks
Subjective Data
Subjective Data
Date of Service: February 19, 2024
No overnight events. Still with left ankle pain and swelling.
Denies abdominal pain, but having some gas pains.
Denies nausea/vomiting. Tolerating diet.
+flatus +BMs +voiding
Objective Data
-
Vital Signs
Temp Pulse Resp BP Pulse Ox
98.3 F 55 17 135/76 96
02/19/24 07:47 02/19/24 07:47 02/19/24 07:47 02/19/24 07:47 02/19/24 07:47
Intake & Output
02/18/24 02/19/24 02/20/24
06:59 06:59 06:59
Intake Total 1380 / 1380
Output Total 775 / 775
Balance 605 / 605
Intake:
Oral fluids 1380 / 1380
IV fluids (Total) 0 / 0
IV piggybacks 0 / 0
Output:
Urine, Voided 255 / 775
Other:
Number of approximated MODERATE 2
amounts of urine
Lab Results
02/19/24 06:39
02/19/24 06:39
Physical Exam
-
General: No Acute Distress and AOx3
HEENT: Grossly Normal
Abdomen: Soft, Non Distended, Non Tender (Minimally tender in the LLQ), No Guarding and No Rebound
Skin: Warm and Dry
--- NOTE | 2024-02-19 10:10 | W.PN.HOSP.TC ---
Addendum entered and electronically signed by Lukasz Mclain MD 02/19/24 15:50:
Addendum
saw pt again, he feels better and would like to go home
seen by surgery, ok to dc
tolerating diet well
had PT and was given CAM boot.
d/w pt dc instructions
Total discharge time spent to see the patient, examine the patient on the floor, review data and lab results, discuss discharge plan with patient, surgery, nursing staff around 65 minutes
Original Note:
Today's Communication/Plan
-
Reviewed MRI
f/w CRP & ESR
MirALAX is ordered
Blood culture.
will follow gain today
Assessment / Plan
Assessment / Plan
Physical exam:
General: Well Developed, Well Nourished and No Apparent Distress
HEENT: NormoCephalic, Moist mucous membranes and Atraumatic
Respiratory: Clear
Cardiac: S1/S2 and Regular Rhythm; No Murmur or Rub
GI: Soft, Non Tender, Non Distended and Normal Bowel Sounds
Musculoskeletal:No Edema in legs. Left ankle mild swelling, no erythema, tenderness upon palpation lateral side
Neuro: AO x 3 and Nonfocal/grossly intact
Psych: Calm
# Acute severe pain in left foot, mid foot rule out reactive arthritis
Pain and swelling seem localized to mid foot. I ordered inflammation markers and MRI with/ without contrast, no osteomyelitis. Sent for ESR & CRP. Low grade temp , send for blood culture
Prior Left ankle trauma prior constructive surgery when he was in college.
WBC is normal, no fever.
Did x ray, no acute fracture or effusion noted, possible inflammatory reactive arthritis. ? (Pseudogout) due to ongoing stress with infection.
Already on steroid
d/w colorectals surgery.
d/w Dr Schroeder.
# Acute diverticulitis
now started on low residue diet
Less abdominal pain over night
-Changed Zosyn continued
-surgery following, help appreciated
-chest x ray with no acute disease
-CT abdomen pelvis with Diverticuli are present in the colon.There is mild hazy pericolonic inflammatory stranding at the proximal sigmoid colon along a 7 cm in length nondistended segment suggesting diverticulitis Stable 5 cm infrarenal abdominal
aortic aneurysm with eccentric thrombus
#AAA
Stable blood pressure
Abdominal pain c/w the infection
I reviewed vascular surgery notes, input appreciated. No evidence of popliteal aneurysm on either side per US of low extremities
# Mild drop in HGB, c/w dilutional
#adrenal Insufficiency
- Reportedly secondary to immunotherapy / cancer treatment.
- Prednisone 7.5 mg daily
c/w IV hydrocortisone for now which will also help with inflammation in left ankle
Will reduce stress dose now
#Hypothyroidism
- Continue current T4 replacement.
#Benign Hypertension
Slightly uncontrolled, add PRN Hydralazine
- Norvasc and losartan continued with hold parameters
#Malignant Melanoma - In Remission
- s/p excision / neck dissection and immunotherapy.
- No longer on active treatment.
- No acute / active issues.
#DVT Prophylaxis: Lovenox
#Code Status: DNR
Total time spent to see the patient, examine the patient on the floor, review data and lab results, discuss treatment plan with patient, consultants, nursing staff around 55 minutes
Anticipated Discharge: Within 24 hours
Subjective/Interval History
-
Date of Service: February 19, 2024
Left foot pain
No fever
less abd pain or discomfort
tolerating diet
Objective Data
-
Labs:
Laboratory Results
02/19/24
06:39
WBC 4.4 L
Hgb 11.0 L
Hct 31.6 L
Plt Count 149
Sodium 143
Potassium 4.1
Chloride 102
Carbon Dioxide 34 H
BUN 14
Creatinine 0.7
Glucose 94
Calcium 9.0
Vital Signs:
Vital Signs
Temp Pulse Resp BP Pulse Ox
98.3 F 55 17 135/76 96
02/19/24 07:47 02/19/24 07:47 02/19/24 07:47 02/19/24 07:47 02/19/24 07:47
I&O
02/18/24 02/19/24 02/20/24
06:59 06:59 06:59
Intake Total 1380 / 1380
Output Total 775 / 775
Balance 605 / 605
[2024-02-19 12:52] LABS: Erythrocyte Sed Rate 33 mm/hour (0-20)
--- NOTE | 2024-02-19 15:38 | CM ---
Reviewed chart, patient medically cleared for discharge. Patient signed IMM. His cousin will take him home.
Plan: Case management will continue to follow and assist with discharge planning. Home.
--- NOTE | 2024-02-19 15:41 | W.DCSUMMARY ---
Discharge Summary
Discharge Data
Date of Admission: 02/15/24
Date of Discharge: 02/19/24
-
Pending Results: No
Hospital Course
73 years old male presented with abdominal pain. Patient was found to have recurrent sigmoid diverticulitis without perforation. Patient had 2 previous similar attacks. He was admitted to the hospital for intravenous antibiotics and bowel rest.
He was followed by colorectal surgery. His symptoms improved slowly. Diet was advanced to low residue diet without complications. Imaging studies of the abdomen pelvis showed abdominal aortic aneurysm. Patient did not have hemodynamic
instability. Morphology of the aneurysm did not change. Vascular surgery recommended outpatient follow-up for management of aneurysm. Ultrasound of the lower extremities did not show popliteal aneurysm on either side. Patient started to have
left foot pain and swelling. Imaging studies showed reactive synovitis without effusion. He was evaluated by podiatry. Patient was given a steroid course for treatment of reactive arthritis. He did not have fever. He did not have leukocytosis.
ESR was elevated to 33, C-reactive protein 58.40. Patient was given cam boot. He did not have worsening of swelling and left foot started to feel better. He was advised to follow-up with his primary care physician. Patient remained
hemodynamically stable and was discharged in a stable condition To follow-up with colorectal surgery in the office.
Discharge Plan
-
Patient Disposition: Home (Routine Discharge)
Discharge Diagnosis/Procedures: -Acute diverticulitis, you receive dIV antibiotic, continue course for another 5 days to finish 10 days course.
-Left foot pain/swelling, MRI showed possibility of reactive synovitis involving the tibiotalar joint and subtalar joint. Weight bearing as tolerated, use walker.
-5 cm infrarenal abdominal aortic aneurysm with eccentric thrombus, follow with vascular surgery.
-History of adrenal insufficiency secondary to previous chemotherapy, You received high dose steroid in hospital. Continue 15 mg prednisone on 02/19 & 02/20, resume 7.5 mg prednisone on 02/21.
Diet: Low Fiber
Additional Diets: low residue diet
Referrals:
Shade Dinero MD [Active] - in one to two weeks
Brian Tillman MD [Active] - 03/23/24 2:00 pm (Vascular office follow up)
Dale Lr DO [Family Provider] -
Prescriptions:
New
amoxicillin-pot clavulanate 875-125 mg tablet
1 tab PO BID Qty: 10 0RF
Continued
atorvastatin 10 MG tablet
10 mg PO DAILY
amlodipine 5 MG tablet
5 mg PO DAILY Qty: 0 0RF
losartan 50 mg Tablet
75 mg PO DAILY
levothyroxine 137 mcg Tablet
137 mcg PO DAILY
Held
prednisone 5 mg tablet
7.5 mg PO DAILY
Hold Instructions: Resume on 02/22/24.
Discharge Orders:
Discharge Patient (As Directed); Ordered 02/19/24
Ordered By: Lukasz Mclain
Discharge Date and Time
Print Language: NIGERIEN
[2024-02-19 15:57] VITALS: BP 142/68
== END 2024-02-19 16:12 | disposition home or self-care (01) | DRG 392 ==
LOC: 3 WEST ACU 16:02
PROVIDERS: Internal Medicine; Nurse Practitioner; Registered Nurse; ADMITTING PHYSICIAN Hospitalist; ATTENDING PHYSICIAN Internal Medicine; CONSULT PHYSICIAN Student in an Organized Health Care Education/Training Program; CONSULT PHYSICIAN Surgery; EMERGENCY PHYSICIAN Emergency Medicine; FAMILY PHYSICIAN Internal Medicine; OTHER PHYSICIAN Surgery Vascular Surgery
DX: K57.32 Diverticulitis of large intestine without perforation or abscess without bleeding (principal); M02.372 Reiter's disease, left ankle and foot; E27.3 Drug-induced adrenocortical insufficiency; I71.43 Infrarenal abdominal aortic aneurysm, without rupture; E03.9 Hypothyroidism, unspecified; E11.9 Type 2 diabetes mellitus without complications; I10 Essential (primary) hypertension; E78.00 Pure hypercholesterolemia, unspecified; Z66 Do not resuscitate; M65.872 Other synovitis and tenosynovitis, left ankle and foot; M79.672 Pain in left foot; E80.4 Gilbert syndrome; Z79.890 Hormone replacement therapy; Z79.899 Other long term (current) drug therapy; Z85.820 Personal history of malignant melanoma of skin; Z92.21 Personal history of antineoplastic chemotherapy; Z87.19 Personal history of other diseases of the digestive system; Z96.641 Presence of right artificial hip joint; Z88.8 Allergy status to other drugs, medicaments and biological substances
CPT/HCPCS: 71046; 73600; 73720; 74177; 80048; 81003; 81015; 83690; 85025; 85027; 85652; 86140; 87040; 93925; 96361; 96365; 96375; 97162; 99285; A9575; Q9967

== ENCOUNTER 2024-03-23 14:20 | Emergency (ER) | payer MEDICARE, OTHER, SELFPAY ==
[2024-03-23 14:22] VITALS: BP 127/71
[2024-03-23] MEDS: DILAUDID 1 MG IV (16:21)
[2024-03-23] MEDS: NSS 1000 IV (16:21)
[2024-03-23 16:39] LABS: % Basophils 0.7 % (0-2); % Eosinophils 1.7 % (0-6); % Immature Granulocytes 0.4 % (0-0.5); % Lymphocytes 10.9 % (20.5-51.1); % Monocytes 9.4 % (1.7-9.3); % Neutrophils 76.9 % (42.2-75.2); Absolute Basophils 0.1 10^3/uL (0-0.2); Absolute Eosinophils 0.2 10^3/uL (0-0.7); Absolute Monocytes 0.9 10^3/uL (0.1-0.6); Hematocrit 41.4 % (39.0-52.0); Hemoglobin 14.2 g/dL (13.0-18.0); Mean Corp Hgb Conc. 34.3 g/dL (33.0-37.0); Mean Corpuscular Hgb 28.8 pg (27.0-31.0); Nucleated Red Blood Cells % 0 % (-); Platelet Count 179 10^3/uL (130-400); Red Blood Cell Count 4.93 10^6/uL (4.70-6.10); Red Cell Dist. Width 14.3 % (11.5-14.5)
[2024-03-23 17:00] VITALS: BP 118/64
--- NOTE | 2024-03-23 17:28 | ED.GENMED ---
History of Present Illness
General
Chief Complaint: Abdominal Symptoms
Source: patient, records and physician
Exam Limitations: none
Time Seen by Provider: 03/23/24 15:41
Nursing documentation reviewed up to this point in time: agreed with
History of Present Illness
History of Present Illness:
73-year-old male with a past medical history of hypertension, hyperlipidemia, ZE, recurrent diverticulitis, known AAA who presents to the emergency department for evaluation of abdominal pain. Patient reports onset of symptoms 2 days ago and have
been constant and worsening since that time. He reports pain in the left lower abdomen radiates towards the suprapubic region. No clear triggering or relieving factors noted. Denies any associated nausea or vomiting. Denies any diarrhea. Denies
constipation. Denies any dysuria, hematuria, change in urinary frequency. He denies any fevers or chills. He reports identical symptoms with diverticulitis in the past. He has had recurrent diverticulitis and is actually scheduled for partial
colon resection with Dr. Dinero on 04/30/2024. He does have a known AAA follows with Dr. Tillman and in fact was seen in the office by Dr. Tillman today for preoperative assessment with plan to repair AAA in the future; he reported the symptoms and was
referred to the ER here.
Past History
Past History
ED Past Medical History: HTN; Negative Asthma, Hypercholesterolemia or NIDDM
ED Past Surgical History: Other (Hemorrhoids)
Social History
Tobacco: Non-smoker
Alcohol: Occasional
Drug: None
Personal:
Living: with family
Employment: Employed
Family History
Family History: Other (reviewed and noncontributory)
Review of Systems
Review of Systems
All Other Systems: ROS reviewed and negative except as documented in HPI and ROS
Constitutional: Denies fever or chills
Respiratory: Denies trouble breathing
Cardiac: Denies chest pain
ABD/GI: Reports abdominal pain; Denies nausea, vomiting, diarrhea or constipated
: Denies dysuria, frequency or flank pain
Musculoskeletal: Denies neck pain or back pain
Neurological: Denies dizzy or headache
Phy Exam
Physical Exam
Physical Exam:
General: Awake, alert, oriented x3; no acute distress
Head: Normocephalic, atraumatic
Eyes: Conjunctiva normal, sclera
Throat: Airway intact, handling secretions
Neck: Trachea midline, supple without meningismus
Lungs: Clear to auscultation bilaterally, no wheezing, rales, rhonchi
Heart: Regular rate and rhythm, no murmurs, gallops, or rubs
Abd: Soft, non distended, tender to palpation suprapubic region and left lower quadrant
Back: No CVA tenderness
Neuro: No gross deficits
Extremities: Warm and well-perfused
Scores
Heart Failure Risk
Heart Failure Risk Score: Not Applicable
Heart Score for Chest Pain Patients
STEMI patient?: Not applicable
Withdrawal Assessment of Alcohol
Withdrawal Assessment Completed?: Not applicable
Course
Orders/Labs/Results
Orders:
Orders
03/23/24 14:27
EKG [Electrocardiogram (*1)] Urgent
Reason for Study: Abdominal Pain
EKG- Treatment ONCE
03/23/24 15:43
CT Abd/pelvis W Iv Cont Urgent
Comment:
Reason For Exam: LLQ abd pain, h/o diverticulitis
03/23/24 16:06
0.9% Sodium Chloride 1000 ml [Nss] 1,000 ml IV BOLUS
HYDROmorphone [Dilaudid] 1 mg IV NOW STA
03/23/24 16:13
Complete Blood Count/With Diff Urgent
Urinalysis Reflex To Culture Urgent
Date Specimen was Collected: 03/23/24
Time Specimen was Collected: 16:08
Urine Microscopic Reflex Cult Urgent
03/23/24 17:06
Comprehensive Metabolic Panel Urgent
Lipase Urgent
Abnormal Lab Results
03/23/24 03/23/24
16:13 17:06
Absolute Neuts (auto) 7.0 H 10^3/uL
(1.4-6.5)
Absolute Lymphs (auto) 1.0 L 10^3/uL
(1.2-3.4)
Absolute Monos (auto) 0.9 H 10^3/uL
(0.1-0.6)
Neutrophils % 76.9 H %
(42.2-75.2)
Lymphocytes % 10.9 L %
(20.5-51.1)
Monocytes % 9.4 H %
(1.7-9.3)
Creatinine 0.6 L mg/dL
(0.7-1.3)
Total Bilirubin 2.5 H mg/dl
(0.2-1.3)
AST 16 L U/L
(17-59)
Ur Occult Blood Reflex Trace A
(Negative)
03/23/24 16:13
03/23/24 17:06
Vital Signs
Initial and Last Documented VS:
Initial Vital Signs
Temp Pulse Resp BP Pulse Ox
37.2 C 80 18 127/71 97
03/23/24 14:22 03/23/24 14:22 03/23/24 14:22 03/23/24 14:22 03/23/24 14:22
Last Documented Vital Signs
Temp Pulse Resp BP Pulse Ox
37.2 C 60 15 118/64 96
03/23/24 14:22 03/23/24 18:06 03/23/24 18:06 03/23/24 17:00 03/23/24 18:06
MDM/Problems Addressed
Differential Diagnosis Includes:
Diverticulitis, UTI, nephrolithiasis, ruptured AAA very unlikely based on clinical appearance
MDM/Problems Addressed:
73-year-old male presents to the emergency room for evaluation of worsening abdominal pain x 3 days identical to prior diverticulitis episodes. Vitals and exam as above. Place an IV check labs including a CBC and a CMP, urinalysis. Check CT
abdomen pelvis. Provide fluids and pain control. Monitor closely reassess at the above.
Labs reviewed: CBC unremarkable, CMP no clinically significant abnormalities (T. bili elevated but stable). Urinalysis is negative for infection. CT abdomen pelvis read is negative for any acute pathology however his clinical picture was
concerning for diverticulitis and he has a known history of similar symptoms with diverticulitis in the past. Case discussed with colorectal surgery will cover empirically with Cipro/Flagyl. No clear indication for admission to the medical
[place]�patient feels comfortable with discharge on oral antibiotic. Spoke with return precautions all questions answered.
Chronic conditions affecting care:
Recurrent diverticulitis
*Radiology
Radiology exam reviewed: radiology read reviewed
*Pulse Oximetry
Patient hypoxic: no
*EKG
Interpreted by ED Provider?: Yes
Heart Rate: 75
Rate: normal
Rhythm: sinus and PAC's
[place]: normal axis
Interval: normal interval
QRS Pattern: left bundle branch block
*Critical Care Note
Total Time (30-74mins, 75-104mins- exclusive of procedures): Not Applicable
Data Reviewed
Review of Other/Old Records Reveals: Labs and Records
Source: patient, records and physician
Patient Management
Discussion with other providers: Payroll Master (Discussed with colorectal surgery)
ED Attending Note
-
Portions of this chart may have been created with voice recognition software.� Occasional wrong word or��sound alike� substitutions may have occurred due to the inherent limitations of voice recognition software.
Discharge Plan
Departure
Patient Disposition: Home (Routine Discharge)
Date of Disposition: 03/23/24
Time of Disposition: 18:50
Patient with high blood pressure during this ER visit?: No
Discharge Problem:
Diverticulitis
Instructions: Diverticulitis (DC)
Prescriptions:
New
ciprofloxacin HCl [Cipro] 500 mg tablet
500 mg PO BID 10 Days Qty: 20 0RF
metronidazole 500 mg tablet
500 mg PO TID 10 Days Qty: 30 0RF
No Action
atorvastatin 10 MG tablet
10 mg PO DAILY
amlodipine 5 MG tablet
5 mg PO DAILY Qty: 0 0RF
prednisone 5 mg tablet
7.5 mg PO DAILY
losartan 50 mg Tablet
75 mg PO DAILY
levothyroxine 137 mcg Tablet
137 mcg PO DAILY
amoxicillin-pot clavulanate 875-125 mg tablet
1 tab PO BID Qty: 10 0RF
Referrals:
Shade Dinero MD [Active] - Call in 1-3 days for appt
Activity Restrictions/Additional Instructions:
Thank you for visiting the Emergency Department at [facility].
1. Please schedule a follow up appointment as directed. Call first thing tomorrow morning to make an appointment.
2. If indicated, please take your medications as instructed and indicated on discharge paperwork.
3. If any of your symptoms do not improve, or persist, or become more severe within 6-12 hours, please return to the emergency department for further care.
4. Please return to the emergency department if you develop a headache, neck pain/stiffness, fever greater than 100.4F, chest pain, shortness of breath, persistent nausea, vomiting, slurred speech, difficulty walking, numbness/tingling, weakness,
signs of infection or any other symptoms that are worrisome to you.
Please call [phone] if you have any questions.
Interventions
Interventions:
*Risk Screen - Suicide Last Done: 03/23/24 14:22
*General Assessment Last Done: 03/23/24 15:41
*Neglect/Abuse Screening Last Done: 03/23/24 14:22
ED- Fall Risk Assessment Last Done: 03/23/24 15:41
YW-Reqqen-Qsedifpgnq Assessment Last Done: 03/23/24 15:41
Discharge Date and Time
Print Language: UPPER SORBIAN
[2024-03-23 17:34] LABS: ALT (SGPT) 16 U/L (0-50); AST (SGOT) 16 U/L (17-59); Albumin 3.9 g/dl (3.5-5.0); Alkaline Phosphatase 45 U/L (38-126); Blood Urea Nitrogen 17 mg/dl (9-20); Calcium 8.9 mg/dl (8.4-10.2); Carbon Dioxide 25 mmol/L (22-30); Chloride 105 mmol/L (98-107); Glucose 99 mg/dl (70-99); Lipase 58 U/L (23-300); Potassium 3.8 mmol/L (3.5-5.1); Sodium 138 mmol/L (135-145); Total Bilirubin 2.5 mg/dl (0.2-1.3); Total Protein 6.4 g/dl (6.3-8.2); eGFR > 60.00
[2024-03-23 18:42] LABS: Urine Albumin Negative (Neg - Trace); Urine Bilirubin Negative (Negative); Urine Character Clear (Clear); Urine Color Yellow; Urine Glucose Negative (Negative); Urine Ketone Negative (Negative); Urine Leukocyte Negative (Negative); Urine Nitrite Negative (Negative); Urine Occult Blood Trace (Negative); Urine Specific Gravity 1.015 (<1.030); Urine Urobilinogen Negative (Neg - 1+)
[2024-03-23 18:57] LABS: Urine Mucus Few; Urine Squamous Cell 0-2 /LPF (Few)
[2024-03-23 18:58] LABS: Urine Bacteria Few (Negative); Urine Red Blood Cell 0-2 /HPF (0-2); Urine White Cell 0-2 /HPF (0-5)
[2024-03-23] MEDS: FLAGYL 500 MG PO (19:40)
[2024-03-23] MEDS: CIPRO 500 MG PO (19:41)
== END 2024-03-23 20:25 | disposition home or self-care (01) ==
LOC: EMR 14:20
PROVIDERS: EMERGENCY PHYSICIAN Emergency Medicine; FAMILY PHYSICIAN Internal Medicine
DX: K57.32 Diverticulitis of large intestine without perforation or abscess without bleeding (principal); I10 Essential (primary) hypertension; E78.5 Hyperlipidemia, unspecified; G47.33 Obstructive sleep apnea (adult) (pediatric)
CPT/HCPCS: 99285; 96374; 96361; 74177; 80053; 81003; 81015; 83690; 85025; 93005; Q9967

== ENCOUNTER 2024-04-30 06:15 | Inpatient (IN) | payer MEDICARE, OTHER, SELFPAY ==
[2024-04-21 08:48] LABS: Hemoglobin 13.5 g/dL (13.0-18.0); Mean Corp Hgb Conc. 33.8 g/dL (33.0-37.0); Mean Corpuscular Hgb 28.9 pg (27.0-31.0); Mean Corpuscular Volume 85.7 fL (80.0-94.0); Mean Platelet Volume 9.8 fL (7.4-10.4); Platelet Count 192 10^3/uL (130-400); Red Blood Cell Count 4.67 10^6/uL (4.70-6.10); Red Cell Dist. Width 13.9 % (11.5-14.5); White Blood Cell Count 4.1 10^3/uL (4.8-10.8)
[2024-04-21 08:54] LABS: INR 0.96; PT 13.1 Sec (11.4-14.6)
[2024-04-21 08:55] LABS: APTT 31.2 Sec (23.4-35.0)
[2024-04-21 09:12] LABS: ALT (SGPT) 24 U/L (0-50); AST (SGOT) 21 U/L (17-59); Albumin 4.2 g/dl (3.5-5.0); Alkaline Phosphatase 47 U/L (38-126); Blood Urea Nitrogen 25 mg/dl (9-20); Calcium 9.5 mg/dl (8.4-10.2); Carbon Dioxide 28 mmol/L (22-30); Chloride 107 mmol/L (98-107); Glucose 104 mg/dl (70-99); Potassium 4.4 mmol/L (3.5-5.1); Sodium 144 mmol/L (135-145); Total Bilirubin 0.7 mg/dl (0.2-1.3); Total Protein 6.9 g/dl (6.3-8.2); eGFR > 60.00
[2024-04-21 12:27] VITALS: BMI 31.2
[2024-04-21 13:43] LABS: Glycohemoglobin (HgbA1c) 5.5 % (4.0-5.6)
[2024-04-30] VITALS (20 sets, daily range): BP systolic 30–143; BP diastolic 58–80; BMI 31.2
[2024-04-30] MEDS: NEURONTIN 600 MG PO (06:34)
[2024-04-30] MEDS: TYLENOL 1000 MG PO (06:34)
[2024-04-30] MEDS: ENTEREG 12 MG PO (06:34)
[2024-04-30] MEDS: NORMOSOL-R/PLASMALYTE-A 1000 IV ×2 (06:54→17:30)
--- NOTE | 2024-04-30 10:58 | W.IMMPOSTOP ---
Addendum entered and electronically signed by Shade Dinero MD 04/30/24 11:07:
Patient's Ashley updated via phone conversation.
Original Note:
Surgical Immed Post Op Note
-
Primary Surgeon: Nidia Dinero MD
Assisting Surgeon: RACHEL Durán; CECILIA Henderson
Pre-op Diagnosis: diverticulitis
Post-op Diagnosis: same
Procedure Performed: 1) robotic sigmoidectomy 2) flexible sigmoidoscopy
Anesthesia Type: general plus local
Specimen / Cultures: sigmoid and distal descending colon
Estimated Blood Loss: 50 cc
Complications: no immediate
Operative Findings: 1) mild thickening of proximal sigmoid and distal descending colon 2) abdominal aortic aneurysm
#19 Seamus in pelvis.
Piedra, stents, ureteral ICG by Dr. Garza of urology. One stent removed at end of case.
Will send to med surg.
[2024-04-30] MEDS: TORADOL 15 MG IV ×3 (11:39→23:38)
[2024-04-30] MEDS: NSS (PRESERVATIVE FREE) 10 ML IV (11:39)
[2024-04-30] MEDS: PROTONIX IV 40 MG IV (11:39)
[2024-04-30] MEDS: SOLU-CORTEF 50 MG IV ×3 (11:39→23:38)
[2024-04-30 11:48] LABS: % Basophils 0.4 % (0-2); % Eosinophils 0.4 % (0-6); % Immature Granulocytes 0.4 % (0-0.5); % Lymphocytes 9.2 % (20.5-51.1); % Monocytes 2.9 % (1.7-9.3); % Neutrophils 86.7 % (42.2-75.2); Absolute Lymphocytes 0.8 10^3/uL (1.2-3.4); Absolute Monocytes 0.2 10^3/uL (0.1-0.6); Absolute Neutrophils 7.2 10^3/uL (1.4-6.5); Hemoglobin 13.6 g/dL (13.0-18.0); Mean Corpuscular Hgb 28.8 pg (27.0-31.0); Mean Corpuscular Volume 84.6 fL (80.0-94.0); Mean Platelet Volume 9.2 fL (7.4-10.4); Nucleated Red Blood Cells % 0 % (-); Platelet Count 162 10^3/uL (130-400); Red Blood Cell Count 4.73 10^6/uL (4.70-6.10); Red Cell Dist. Width 13.6 % (11.5-14.5); White Blood Cell Count 8.3 10^3/uL (4.8-10.8)
[2024-04-30 12:07] LABS: Blood Urea Nitrogen 15 mg/dl (9-20); Calcium 8.7 mg/dl (8.4-10.2); Carbon Dioxide 24 mmol/L (22-30); Chloride 104 mmol/L (98-107); Estimated Creatinine Clearance 121 ml/min; Glucose 147 mg/dl (70-99); Magnesium 1.8 mg/dl (1.6-2.3); Potassium 3.7 mmol/L (3.5-5.1); Sodium 139 mmol/L (135-145); eGFR > 60.00
[2024-04-30] MEDS: DILAUDID 0.5 MG IV ×3 (12:59→21:32)
[2024-04-30] MEDS: TYLENOL 650 MG PO ×4 (12:59→23:37)
--- NOTE | 2024-04-30 14:25 | PTCARENOTE ---
Pt received from the ED via bed. Transport was w/o incident. Pt is AAOx3, HR sl irreg. 70's apically, lungs are clear, resp. easy. VSS, Pt is afebrile. Pt's abd with 3 Lap sites and one low transverse inc. C/D/I, well approx. with surgical glue, no
drainage noted. AMAN drain to right abd intact, scant serosanquinous fluid noted. Pt's chavez cath draining blood tinged urine. Pt denies pain or nausea at present. Pt instructed on plan of care, and to call nursing for any cares or concerns. Call
castañeda is within reach.
[2024-05-01] MEDS: DILAUDID 0.5 MG IV ×5 (02:03→22:15)
[2024-05-01] MEDS: NORMOSOL-R/PLASMALYTE-A 1000 IV (03:37)
[2024-05-01 03:39] VITALS: BP 136/70
[2024-05-01] MEDS: TYLENOL PO (05:00)
[2024-05-01] MEDS: SOLU-CORTEF 50 MG IV ×2 (05:09→12:24)
[2024-05-01] MEDS: TORADOL 15 MG IV ×4 (05:11→23:27)
[2024-05-01] MEDS: SYNTHROID 137 MCG PO (05:11)
--- NOTE | 2024-05-01 07:07 | PTCARENOTE ---
Pt with bloody urine in catheter very anxious and c/o mild discomfort. NURSE RN BSN Cecilia Malagon placed order to irrigate Piedra 50-100cc. 50cc irrigated.
[2024-05-01 08:19] LABS: % Basophils 0.1 % (0-2); % Eosinophils 0.1 % (0-6); % Immature Granulocytes 0.5 % (0-0.5); % Lymphocytes 6.3 % (20.5-51.1); % Monocytes 6.1 % (1.7-9.3); % Neutrophils 86.9 % (42.2-75.2); Absolute Lymphocytes 0.5 10^3/uL (1.2-3.4); Absolute Monocytes 0.5 10^3/uL (0.1-0.6); Absolute Neutrophils 6.7 10^3/uL (1.4-6.5); Hematocrit 36.6 % (39.0-52.0); Hemoglobin 12.2 g/dL (13.0-18.0); Mean Corp Hgb Conc. 33.3 g/dL (33.0-37.0); Mean Corpuscular Hgb 28.3 pg (27.0-31.0); Mean Corpuscular Volume 84.9 fL (80.0-94.0); Mean Platelet Volume 9.4 fL (7.4-10.4); Nucleated Red Blood Cells % 0 % (-); Platelet Count 165 10^3/uL (130-400); Red Blood Cell Count 4.31 10^6/uL (4.70-6.10); Red Cell Dist. Width 13.5 % (11.5-14.5); White Blood Cell Count 7.8 10^3/uL (4.8-10.8)
[2024-05-01] MEDS: TYLENOL 650 MG PO ×5 (08:35→23:27)
[2024-05-01] MEDS: COZAAR 75 MG PO (08:36)
[2024-05-01] MEDS: ENTEREG 12 MG PO ×2 (08:38→20:59)
[2024-05-01] MEDS: LIPITOR 10 MG PO (08:38)
[2024-05-01] MEDS: NSS (PRESERVATIVE FREE) 10 ML IV (08:38)
[2024-05-01] MEDS: NORVASC 5 MG PO (08:38)
[2024-05-01 08:39] VITALS: BP 144/69
[2024-05-01] MEDS: PROTONIX IV 40 MG IV (08:39)
[2024-05-01 08:49] LABS: Blood Urea Nitrogen 17 mg/dl (9-20); Calcium 8.6 mg/dl (8.4-10.2); Carbon Dioxide 24 mmol/L (22-30); Chloride 103 mmol/L (98-107); Estimated Creatinine Clearance 121 ml/min; Glucose 109 mg/dl (70-99); Potassium 4.3 mmol/L (3.5-5.1); Sodium 138 mmol/L (135-145); eGFR > 60.00
[2024-05-01 12:16] VITALS: BP 141/76
[2024-05-01 15:03] VITALS: BP 118/63
--- NOTE | 2024-05-01 15:43 | CM ---
Met with pt at bedside
Pt reports he lives with his in a 3 story home; 1 step to enter, FF set-up
Independent, active, driving
DME - rolling walker, single point cane
SNF/HH - denies past hx
Has ride at discharge
PCP - Dale Lr
Pharm - [facility] on [address]
Given IMM
Plan - anticipate home no needs vs w/VN when medically stable
[2024-05-01] MEDS: NORMOSOL-R/PLASMALYTE-A IV ×2 (16:54→18:16)
[2024-05-01] MEDS: LOVENOX 40 MG SC (18:07)
[2024-05-01] MEDS: SOLU-CORTEF 20 MG IV (18:07)
[2024-05-01 23:20] VITALS: BP 127/69
[2024-05-01] MEDS: MELATONIN 5 MG PO (23:48)
[2024-05-02] MEDS: SOLU-CORTEF 20 MG IV ×3 (02:55→17:47)
[2024-05-02] MEDS: DILAUDID 0.5 MG IV (03:57)
[2024-05-02] MEDS: TYLENOL 650 MG PO ×6 (03:58→23:07)
[2024-05-02] MEDS: SYNTHROID 137 MCG PO (05:00)
[2024-05-02] MEDS: TORADOL 15 MG IV ×4 (05:01→23:07)
[2024-05-02 06:00] VITALS: BMI 30.9
[2024-05-02 08:00] VITALS: BP 145/70
[2024-05-02] MEDS: COZAAR 75 MG PO (08:44)
[2024-05-02] MEDS: NSS (PRESERVATIVE FREE) 10 ML IV (08:44)
[2024-05-02] MEDS: NORVASC 5 MG PO (08:44)
[2024-05-02] MEDS: PROTONIX IV 40 MG IV (08:44)
[2024-05-02] MEDS: ENTEREG 12 MG PO ×2 (08:45→20:39)
[2024-05-02] MEDS: LIPITOR 10 MG PO (08:45)
[2024-05-02] MEDS: ROXICODONE 5 MG PO ×3 (10:11→21:00)
[2024-05-02 16:20] VITALS: BP 146/69
[2024-05-02] MEDS: LOVENOX 40 MG SC (17:50)
[2024-05-02] MEDS: MELATONIN 5 MG PO (21:00)
[2024-05-02 23:25] VITALS: BP 153/76
--- NOTE | 2024-05-03 00:05 | W.PN.CRS1 ---
Today's Communication / Plan
-
As below
Assessment/Plan
-
73-year-old male with PMH of HTN, HLD, hypothyroid, adrenal insufficiency and diverticulitis who presented for elective surgery
POD 2 robotic sigmoidectomy
AF VSS
WBC 7.8 from 8.3, Hb 12.2 from 13.6, creatinine 0.7, UOP 2.0 L
� Advance to low residue diet
� Continue pain control with Tylenol, Toradol, Dilaudid as needed; continue Entereg; encourage patient to ask nurse for pain meds
� Continue home meds
� Continue DVT PPx with Lovenox
� AMAN to bulb suction
� OOB/IS
� Continue steroid taper for adrenal insufficiency until home dose of prednisone achieved
Subjective Data
Subjective Data
Date of Service: May 02, 2024
No overnight events.
Pain not well�controlled.
Denies nausea/vomiting. Tolerating diet.
+flatus +BMs (nonbloody) +voiding
Pt is OOB.
Objective Data
-
Vital Signs
Temp Pulse Resp BP Pulse Ox
97.4 F 51 17 153/76 95
05/02/24 23:25 05/02/24 23:25 05/02/24 23:25 05/02/24 23:25 05/02/24 23:25
Intake & Output
05/01/24 05/02/24 05/03/24
06:59 06:59 06:59
Intake Total 370 / 370 1080 / 1080 1080 / 1080
Output Total 1055 / 1055 2065 / 2065 285 / 285
Balance -685 / -685 -985 / -985 795 / 795
Intake:
Oral fluids 120 / 120 1080 / 1080 1080 / 1080
IV fluids (Total) 250 / 250
normosol 250 / 250
IV piggybacks 0 / 0
Output:
Drain Output (Total)
Right Abdomen Christiano-Baron
Urine, Piedra 960 / 960 400 / 400
Urine, Voided 1650 / 1650 280 / 280
Other:
Number of approximated MODERATE 1 2
amounts of urine
Number of approximated LARGE 2
amounts of urine
Lab Results
05/01/24 07:26
05/01/24 07:26
Physical Exam
-
General: No Acute Distress and AOx3
HEENT: Grossly Normal
Abdomen: Soft, Non Distended, Tender (Appropriately tender near incisions), No Guarding, No Rebound and Other (AMAN-15 mL serosanguineous)
Skin: Warm and Dry
[2024-05-03] MEDS: SOLU-CORTEF 20 MG IV ×3 (02:00→17:42)
[2024-05-03] MEDS: DILAUDID 0.5 MG IV (02:09)
[2024-05-03] MEDS: TYLENOL 650 MG PO ×6 (04:40→23:30)
[2024-05-03] MEDS: TORADOL 15 MG IV ×4 (05:56→23:30)
[2024-05-03] MEDS: SYNTHROID 137 MCG PO (05:56)
[2024-05-03 08:06] VITALS: BP 153/85
[2024-05-03] MEDS: COZAAR 75 MG PO (08:27)
[2024-05-03] MEDS: LIPITOR 10 MG PO (08:28)
[2024-05-03] MEDS: NORVASC 5 MG PO (08:28)
[2024-05-03] MEDS: ENTEREG 12 MG PO ×2 (08:28→20:25)
[2024-05-03] MEDS: PROTONIX IV 40 MG IV (08:29)
[2024-05-03] MEDS: NSS (PRESERVATIVE FREE) 10 ML IV (08:29)
[2024-05-03] MEDS: ROXICODONE 10 MG PO (08:36)
--- NOTE | 2024-05-03 11:08 | W.PN.CRS1 ---
Addendum entered and electronically signed by Star Sanford MD 05/03/24 19:01:
I saw and examined the patient.
The NEUROLOGY TECHNICIAN's note was reviewed and I agree with the note.
�Patient doing very well, pain better controlled but still uneasy about it; plan for discharge tomorrow
Original Note:
Today's Communication / Plan
-
Pain management
Assessment/Plan
-
73-year-old male with PMH of HTN, HLD, hypothyroid, adrenal insufficiency and diverticulitis who presented for elective surgery
POD 3 robotic sigmoidectomy
AF VSS
Tolerating diet with good bowel recovery
� Continue low residue diet
� Continue pain control with Tylenol, Toradol, oxycodone (increased dosage) as needed; continue Entereg; encourage patient to ask nurse for pain meds
� Continue home meds
� Continue DVT PPx with Lovenox
� AMAN to bulb suction, will remove prior to d/c
� OOB/IS
� Continue steroid taper for adrenal insufficiency until home dose of prednisone achieved
Tentative d/c later today vs tomorrow pending pain control
Subjective Data
Subjective Data
Date of Service: May 03, 2024
Patient seen and examined at bedside. OOB to chair. Tolerating diet. Still with difficultly controlling pain. Notes it is better than yesterday. No n/v. Passing flatus and some loose stools.
Objective Data
-
Vital Signs
Temp Pulse Resp BP Pulse Ox
98.1 F 54 14 153/85 94
05/03/24 08:06 05/03/24 08:06 05/03/24 08:06 05/03/24 08:06 05/03/24 08:06
Intake & Output
05/02/24 05/03/24 05/04/24
06:59 06:59 06:59
Intake Total 1080 / 1080 1420 / 1420
Output Total 2064 600 / 600
Balance -985 / -985 820 / 820
Intake:
Oral fluids 1080 / 1080 1420 / 1420
Output:
Drain Output (Total)
Right Abdomen Christiano-Baron
Urine, Piedra 400 / 400
Urine, Voided 1650 / 1650 580 / 580
Other:
Number of approximated MODERATE 1 1
amounts of urine
Number of approximated LARGE 2
amounts of urine
Lab Results
05/01/24 07:26
05/01/24 07:26
Physical Exam
-
General: No Acute Distress and AOx3
HEENT: Grossly Normal
Abdomen: Soft, Non Distended, Tender (Appropriately tender near incisions), No Guarding, No Rebound and Other (AMAN serosanguineous)
Skin: Warm and Dry
Incision: Clear, Dry, Intact
[2024-05-03] MEDS: ROXICODONE 5 MG PO ×2 (14:35→20:29)
[2024-05-03 15:33] VITALS: BP 141/72
[2024-05-03] MEDS: LOVENOX 40 MG SC (17:42)
[2024-05-03] MEDS: MELATONIN 5 MG PO (21:16)
[2024-05-03 23:00] VITALS: BP 106/56
[2024-05-04] MEDS: SOLU-CORTEF 20 MG IV ×2 (02:26→10:15)
[2024-05-04] MEDS: TYLENOL 650 MG PO ×2 (03:56→08:38)
[2024-05-04] MEDS: ROXICODONE 10 MG PO (04:01)
[2024-05-04] MEDS: SYNTHROID 137 MCG PO (05:10)
[2024-05-04] MEDS: TORADOL 15 MG IV (05:10)
[2024-05-04 07:35] VITALS: BP 159/89
[2024-05-04] MEDS: COZAAR 75 MG PO (08:37)
[2024-05-04] MEDS: ENTEREG 12 MG PO (08:38)
[2024-05-04] MEDS: NSS (PRESERVATIVE FREE) 10 ML IV (08:38)
[2024-05-04] MEDS: NORVASC 5 MG PO (08:38)
[2024-05-04] MEDS: PROTONIX IV 40 MG IV (08:38)
[2024-05-04] MEDS: LIPITOR 10 MG PO (08:38)
--- NOTE | 2024-05-04 10:28 | W.PN.CRS1 ---
Today's Communication / Plan
-
discharge
Assessment/Plan
-
73-year-old male with PMH of HTN, HLD, hypothyroid, adrenal insufficiency and diverticulitis who presented for elective surgery
POD 4 robotic sigmoidectomy
AF VSS
Tolerating diet with good bowel recovery
� Continue low residue diet
� Continue pain control with Tylenol, Toradol, oxycodone (increased dosage) as needed; continue Entereg; encourage patient to ask nurse for pain meds
� Continue home meds
� Continue DVT PPx with Lovenox
� CHEO drain discontinued
� OOB/IS
� Continue steroid taper for adrenal insufficiency until home dose of prednisone achieved
- Discharge today. All discharge instructions discussed with patient, including medications, activity levels, and follow up. All questions answered.
Subjective Data
Subjective Data
Date of Service: May 04, 2024
Patient states he feels well. He has no complaints. He denies nausea or vomiting. He has bowel function. He is tolerating a diet. He has mild pain.
Objective Data
-
Vital Signs
Temp Pulse Resp BP Pulse Ox
97.2 F 60 16 159/89 96
05/04/24 07:35 05/04/24 07:35 05/04/24 07:35 05/04/24 07:35 05/04/24 07:35
Intake & Output
05/03/24 05/04/24 05/05/24
06:59 06:59 06:59
Intake Total 1420 / 1420 1760 / 1760
Output Total 600 / 600 745 / 745
Balance 820 / 820 1015 / 1015
Intake:
Oral fluids 1420 / 1420 1760 / 1760
Output:
Drain Output (Total)
Right Abdomen Christiano-Baron
Urine, Voided 580 / 580 725 / 725
Other:
Number of approximated MODERATE 1 2
amounts of urine
Number of approximated LARGE 2
amounts of urine
Lab Results
05/01/24 07:26
05/01/24 07:26
Physical Exam
-
General: No Acute Distress and AOx3
Abdomen: Soft, Non Distended, Non Tender and Other (cheo drain serous)
Skin: Warm and Dry
Incision: Clear, Dry, Intact
--- NOTE | 2024-05-04 10:42 | W.DCSUMMARY ---
Discharge Summary
Discharge Data
Date of Admission: 04/30/24
Date of Discharge: 05/04/24
-
Pending Results: Yes
Additional Pending Results:
pathology
Hospital Course
73-year-old male presented to [facility] for a robotic sigmoidectomy due to diverticulitis. He tolerated the procedure well and was brought back to the medical surgical floor. During his stay he remained on a steroid taper that was per
his [place] process operator. His diet was advanced from a clear liquid to a low residue throughout his stay. Lovenox was added on postop day 1 for DVT prophylaxis. He did have a AMAN drain that was in place removed at the day of discharge. On postop
day 4 when the patient was having bowel function and tolerating a diet, he was discharged to home. All discharge instructions with were discussed with the patient including medications activity levels and follow-up. The patient's pain was
well-controlled at discharge. The patient declined a visiting nurse.
Discharge Plan
-
Patient Disposition: Home (Routine Discharge)
Discharge Diagnosis/Procedures: 1) robotic sigmoidectomy 2) flexible sigmoidoscopy
Diet: Low Residue
Activity: No strenuous activity
Additional Activity: No lifting over 10lbs (gallon of milk)
Driving Restrictions: No driving for 1 week
Bathing Restrictions: OK to Shower
Wound Care: Allow glue to naturally fall off. Do not pick at incisions.
Cover your drain wound with gauze and paper tape. It should deal on its own in 3-5 days. Okay to remove bandage to shower. Allow water to run off wound (no soap).
Instructions: Low-fiber diet
Referrals:
Shade Dinero MD [Active] - in two weeks
Dale Lr DO [Family Provider] -
Additional Discharge Medication Instructions: Tylenol or Ibuprofen as needed for pain. Maximum dose of Ibuprofen is 3,200mg in 24 hours. Maximum dose of Tylenol is 4,000mg in 24 hours.
Prednisone taper per your process operator.
Continue hydrocortisone 20mg by mouth three times a day for post op days 2-5.
On post op days 6-14, change to hydrocortisone 20mg by mouth when you wake up and during lunch.
On post op day 15, return to home dose.
Continue to take pepcid for 2 weeks post op.
Prescriptions:
New
famotidine [Pepcid] 40 mg tablet
40 mg PO DAILY 14 Days Qty: 14 0RF
oxycodone 5 mg tablet
5 mg PO Q6H PRN (Reason: Pain) Qty: 20 0RF
Continued
atorvastatin 10 MG tablet
10 mg PO DAILY
amlodipine 5 MG tablet
5 mg PO DAILY Qty: 0 0RF
losartan 50 mg Tablet
75 mg PO DAILY
levothyroxine 137 mcg Tablet
137 mcg PO DAILY
acetaminophen 650 mg Tablet Extended Release
650 mg PO Q8H PRN (Reason: pain)
Held
prednisone 5 mg tablet
5 mg PO DAILY
Hold Instructions: Resume on 05/15/24. Restart on post op day 15 per your process operator
Discontinued
neomycin 500 mg Tablet
1 g PO TID
Patient Comments:
took at 1400, 2200 (04/29/24) and 0500
Sutab 1.479-0.188- 0.225 gram Tablet
0 tab PO PER PKG DIR
Patient Comments:
Prep started 1700 on 04/29/24 and started again at 2300 and ended at 2330
Discharge Orders:
Discharge Patient (As Directed); Ordered 05/04/24
Ordered By: Caterina Talbert
Discharge Date and Time
Print Language: MALTESE
[2024-05-04 11:34] VITALS: BP 144/85
--- NOTE | 2024-05-04 11:46 | CM ---
Patient seen at bedside.
IMM explained & signed - in chart
Patient drain removed.
PLAN: home, no needs
sister to transport
== END 2024-05-04 12:06 | disposition home or self-care (01) | DRG 330 ==
LOC: 2 SOUTH 06:15
PROVIDERS: Physician Assistant; ADMITTING PHYSICIAN Surgery; FAMILY PHYSICIAN Internal Medicine
PROC: 0DBN4ZZ Excision of Sigmoid Colon, Percutaneous Endoscopic Approach (ICD-10-PCS; 2024-04-30)
PROC: 0DBM4ZZ Excision of Descending Colon, Percutaneous Endoscopic Approach (ICD-10-PCS; 2024-04-30)
PROC: 8E0W4CZ Robotic Assisted Procedure of Trunk Region, Percutaneous Endoscopic Approach (ICD-10-PCS; 2024-04-30)
PROC: 0DJD8ZZ Inspection of Lower Intestinal Tract, Via Natural or Artificial Opening Endoscopic (ICD-10-PCS; 2024-04-30)
DX: K57.32 Diverticulitis of large intestine without perforation or abscess without bleeding (principal); E27.40 Unspecified adrenocortical insufficiency; I71.40 Abdominal aortic aneurysm, without rupture, unspecified; I10 Essential (primary) hypertension; E03.9 Hypothyroidism, unspecified; E78.5 Hyperlipidemia, unspecified
CPT/HCPCS: 88307; 36415; 80048; 80053; 83036; 83735; 85025; 85027; 85610; 85730; 86850; 86900; 86901; 93005; J1335

== ENCOUNTER 2024-05-25 15:07 | Emergency (ER) | payer MEDICARE, OTHER, SELFPAY ==
--- NOTE | 2024-05-25 15:26 | ED.GENMED ---
ED Provider Triage
<Alfonzo Schwartz Jr., PA-C - Last Filed: 05/25/24 15:31>
-
Patient seen by provider in Triage?: Seen in Triage
Attestation: A medical screening examination has been initiated by a qualified medical provider. Based on the assessment performed at this time, it has been determined that an emergent medical condition may exist and the patient has been informed
that further medical evaluation and possible additional diagnostic testing may be needed.
HPI: 73-year-old male with his past with history of adrenal insufficiency currently tapering doses of hydrocortisone currently on 7.5 mg. Recently with upper respiratory symptoms and cough over the past few days and feels like he is very worn out
has generalized weakness and fatigue. He is unsure if he needs stress dose of hydrocortisone at this time. Otherwise here in no obvious distress does appear somewhat tired.
GENERAL: Alert , in no apparent distress
EYE: No visual abnormalities.
NECK: Trachea midline
ENT: No visible abnormalities.
LUNGS: No acute respiratory distress
NEUROLOGICAL: Alert and oriented
SKIN: Skin intact. No visible changes.
MUSCULOSKELETAL: Moving extremities normally
PSYCH: Normal and appropriate interaction.
This is a medical evaluation conducted in person to initiate diagnostic evaluation and provide initial therapeutics. Please see further documentation by the treating clinician.
History of Present Illness
<Alfonzo Schwartz Jr., PA-C - Last Filed: 05/25/24 15:31>
General
Chief Complaint: Abdominal Symptoms
Time Seen by Provider: 05/25/24 17:42
<John Montalvo PA-C - Last Filed: 05/25/24 19:20>
General
Source: patient
Exam Limitations: none
History of Present Illness
History of Present Illness:
73-year-old male with history of adrenal insufficiency currently tapering down his steroid dose. Currently on 7.5 mg. Made this switch about a week ago. He presents with fatigue nausea without vomiting. No loose stool. No fever. He has been
coughing. He notes myalgias as well. Of note patient has a history of recurrent diverticulitis requiring eventual bowel resection. He denies any significant abdominal pain. No chest pain or shortness of breath. No other complaints at this time
Past History
<Alfonzo Schwartz Jr., PA-C - Last Filed: 05/25/24 15:31>
Past History
ED Past Medical History: HTN; Negative Asthma, Hypercholesterolemia or NIDDM
ED Past Surgical History: Other (Hemorrhoids)
Social History
Tobacco: Non-smoker
Alcohol: Occasional
Drug: None
Personal:
Living: with family
Employment: Employed
Family History
Family History: Other (reviewed and noncontributory)
Phy Exam
<John Montalvo PA-C - Last Filed: 05/25/24 19:20>
Physical Exam
Physical Exam:
General: Well-appearing male no acute respiratory distress
HEENT: Normocephalic atraumatic
Heart: Regular rate and rhythm no murmurs
Lungs: Clear no wheeze
Abdomen is soft nontender nondistended no guarding rebound normal bowel sounds
Extremities: No cyanosis or edema
Skin: Warm no rash
Course
<Alfonzo Schwartz Jr., PA-C - Last Filed: 05/25/24 15:31>
Orders/Labs/Results
Orders:
Orders
05/25/24 15:34
0.9% Sodium Chloride 1000 ml [Nss] 1,000 ml IV BOLUS
Chest [CR Chest - 2 Views ] Urgent
Comment:
Reason For Exam: sob
05/25/24 15:41
COVID-19 Antigen Urgent
Source: Nasal Swab
Complete Blood Count/With Diff Urgent
Comprehensive Metabolic Panel Urgent
Cortisol, Random Urgent
Influenza A+B Rapid Molecular Urgent
SREEKANTH Source: Nasal Swab
Specimen Description:
05/25/24 15:50
Urinalysis Reflex To Culture Urgent
Date Specimen was Collected: 05/25/24
Time Specimen was Collected: 15:48
Urine Microscopic Reflex Cult Urgent
05/25/24 17:58
0.9% Sodium Chloride 1000 ml [Nss] 1,000 ml IV BOLUS
Ondansetron Injectable [Zofran] 4 mg IV NOW STA
05/25/24 18:00
Hydrocortisone Sod Succinate [Solu-Cortef] 100 mg IV NOW STA
Abnormal Lab Results
05/25/24 05/25/24
15:41 15:50
Monocytes % 10.6 H %
(1.7-9.3)
Total Bilirubin 3.0 H mg/dl
(0.2-1.3)
Ur Occult Blood Reflex 1+ A
(Negative)
Urine RBC 11-15 A /HPF
(0-2)
05/25/24 15:41
05/25/24 15:41
Vital Signs
Initial and Last Documented VS:
Initial Vital Signs
Temp Pulse Resp BP Pulse Ox
99.6 F 66 18 103/64 97
05/25/24 15:28 05/25/24 15:28 05/25/24 15:28 05/25/24 15:28 05/25/24 15:28
Last Documented Vital Signs
Temp Pulse Resp BP Pulse Ox
99.6 F 67 18 146/82 96
05/25/24 15:28 05/25/24 18:01 05/25/24 18:01 05/25/24 18:01 05/25/24 18:01
Rolalt;John Montalvo PA-C - Last Filed: 05/25/24 19:20>
Orders/Labs/Results
Orders:
Orders
05/25/24 15:34
0.9% Sodium Chloride 1000 ml [Nss] 1,000 ml IV BOLUS
Chest [CR Chest - 2 Views ] Urgent
Comment:
Reason For Exam: sob
05/25/24 15:41
COVID-19 Antigen Urgent
Source: Nasal Swab
Complete Blood Count/With Diff Urgent
Comprehensive Metabolic Panel Urgent
Cortisol, Random Urgent
Influenza A+B Rapid Molecular Urgent
SREEKANTH Source: Nasal Swab
Specimen Description:
05/25/24 15:50
Urinalysis Reflex To Culture Urgent
Date Specimen was Collected: 05/25/24
Time Specimen was Collected: 15:48
Urine Microscopic Reflex Cult Urgent
05/25/24 17:58
0.9% Sodium Chloride 1000 ml [Nss] 1,000 ml IV BOLUS
Ondansetron Injectable [Zofran] 4 mg IV NOW STA
05/25/24 18:00
Hydrocortisone Sod Succinate [Solu-Cortef] 100 mg IV NOW STA
Abnormal Lab Results
05/25/24 05/25/24
15:41 15:50
Monocytes % 10.6 H %
(1.7-9.3)
Total Bilirubin 3.0 H mg/dl
(0.2-1.3)
Ur Occult Blood Reflex 1+ A
(Negative)
Urine RBC 11-15 A /HPF
(0-2)
05/25/24 15:41
05/25/24 15:41
Vital Signs
Initial and Last Documented VS:
Initial Vital Signs
Temp Pulse Resp BP Pulse Ox
99.6 F 66 18 103/64 97
05/25/24 15:28 05/25/24 15:28 05/25/24 15:28 05/25/24 15:28 05/25/24 15:28
Last Documented Vital Signs
Temp Pulse Resp BP Pulse Ox
99.6 F 67 18 146/82 96
05/25/24 15:28 05/25/24 18:01 05/25/24 18:01 05/25/24 18:01 05/25/24 18:01
<John Montalvo PA-C - Last Filed: 05/25/24 19:20>
MDM/Problems Addressed
Differential Diagnosis Includes:
Fatigue myalgias nausea without vomiting or diarrhea. Consider viral illness. Consider effect from tapering off steroids and sequela of adrenal insufficiency. COVID and flu test were negative. Chest x-ray was clear. Overall abdomen exam is
benign. Labs reviewed including cortisol level all of which within normal limits. Bilirubin slightly elevated however this is likely due to the stress response.
Will give fluids and stress dose steriods. Zofran ordered for nausea.
Considered CT imaging of abdomen however abdomen exam is benign and not indicated at this time
<John Montalvo PA-C - Last Filed: 05/25/24 19:20>
*Critical Care Note
Total Time (30-74mins, 75-104mins- exclusive of procedures): Not Applicable
<John Montalvo PA-C - Last Filed: 05/25/24 19:20>
Update Note
Update Note:
Patient reevaluated after fluids and stress dose steroids. He is feeling much better. Nausea is improved his color is improved. Labs are without any significant findings. Etiology of patient's symptoms could be viral related or related to the
recent drop in steroid for his taper. At this point no indication for admission. He will follow-up with his reliability technicians tomorrow for further recommendations regarding his steroid use. Stable for discharge.
ED Attending Note
<Alfonzo Schwartz Jr., PA-C - Last Filed: 05/25/24 15:31>
-
Portions of this chart may have been created with voice recognition software.� Occasional wrong word or��sound alike� substitutions may have occurred due to the inherent limitations of voice recognition software.
Discharge Plan
Departure
Patient Disposition: Home (Routine Discharge)
Date of Disposition: 05/25/24
Time of Disposition: 19:18
Patient with high blood pressure during this ER visit?: No
Discharge Problem:
Fatigue, Adrenal insufficiency
Instructions: Nausea and Vomiting, Adult (DC)
Prescriptions:
No Action
atorvastatin 10 MG tablet
10 mg PO DAILY
amlodipine 5 MG tablet
5 mg PO DAILY Qty: 0 0RF
prednisone 5 mg tablet
5 mg PO DAILY
losartan 50 mg Tablet
75 mg PO DAILY
levothyroxine 137 mcg Tablet
137 mcg PO DAILY
acetaminophen 650 mg Tablet Extended Release
650 mg PO Q8H PRN (Reason: pain)
famotidine [Pepcid] 40 mg tablet
40 mg PO DAILY 14 Days Qty: 14 0RF
oxycodone 5 mg tablet
5 mg PO Q6H PRN (Reason: Pain) Qty: 20 0RF
Referrals:
Dale Lr DO [Family Provider] -
Activity Restrictions/Additional Instructions:
Call your reliability technicians tomorrow as discussed to develop a plan regarding your steroid taper. Please return here for worsening symptoms.
Interventions
Interventions:
*Risk Screen - Suicide Last Done: 05/25/24 18:01
*General Assessment Last Done: 05/25/24 18:01
*Neglect/Abuse Screening Last Done: 05/25/24 18:01
*ED COVID-19 Vaccine History Last Done: 05/25/24 15:28
KL-Yjcpgz-Lduuxrnzeg Assessment Last Done: 05/25/24 18:01
Discharge Date and Time
Print Language: GERMAN
[2024-05-25 15:28] VITALS: BP 103/64
[2024-05-25 15:59] LABS: Urine Albumin Negative (Neg - Trace); Urine Bilirubin Negative (Negative); Urine Character Clear (Clear); Urine Color Yellow; Urine Glucose Negative (Negative); Urine Ketone Negative (Negative); Urine Leukocyte Negative (Negative); Urine Nitrite Negative (Negative); Urine Occult Blood 1+ (Negative); Urine Specific Gravity 1.015 (<1.030); Urine Urobilinogen Negative (Neg - 1+); Urine pH 6.5 (5.0-9.0)
[2024-05-25 16:04] LABS: % Basophils 1.1 % (0-2); % Eosinophils 4.3 % (0-6); % Immature Granulocytes 0.4 % (0-0.5); % Monocytes 10.6 % (1.7-9.3); % Neutrophils 62.6 % (42.2-75.2); Absolute Basophils 0.1 10^3/uL (0-0.2); Absolute Eosinophils 0.2 10^3/uL (0-0.7); Absolute Lymphocytes 1.2 10^3/uL (1.2-3.4); Absolute Monocytes 0.6 10^3/uL (0.1-0.6); Absolute Neutrophils 3.5 10^3/uL (1.4-6.5); Hemoglobin 14.2 g/dL (13.0-18.0); Mean Corp Hgb Conc. 33.8 g/dL (33.0-37.0); Mean Corpuscular Hgb 28.4 pg (27.0-31.0); Mean Platelet Volume 8.9 fL (7.4-10.4); Nucleated Red Blood Cells % 0 % (-); Platelet Count 165 10^3/uL (130-400); Red Cell Dist. Width 13.9 % (11.5-14.5); White Blood Cell Count 5.6 10^3/uL (4.8-10.8)
[2024-05-25 16:14] LABS: COVID-19 Antigen Negative (Negative)
[2024-05-25 16:17] LABS: ALT (SGPT) 19 U/L (0-50); AST (SGOT) 20 U/L (17-59); Albumin 4.5 g/dl (3.5-5.0); Alkaline Phosphatase 75 U/L (38-126); Blood Urea Nitrogen 12 mg/dl (9-20); Calcium 9.5 mg/dl (8.4-10.2); Carbon Dioxide 28 mmol/L (22-30); Chloride 99 mmol/L (98-107); Glucose 98 mg/dl (70-99); Sodium 136 mmol/L (135-145); Total Protein 7.2 g/dl (6.3-8.2); eGFR > 60.00
[2024-05-25 16:47] LABS: Cortisol, Random 4.7 ug/dl
[2024-05-25 16:51] LABS: Urine Squamous Cell 0-2 /LPF (Few); Urine White Cell 0-2 /HPF (0-5)
[2024-05-25 17:36] VITALS: BP 141/78
[2024-05-25 18:01] VITALS: BP 146/82
[2024-05-25] MEDS: NSS 1000 IV (18:03)
[2024-05-25] MEDS: SOLU-CORTEF 100 MG IV (18:07)
[2024-05-25] MEDS: ZOFRAN 4 MG IV (18:07)
[2024-05-25 19:47] VITALS: BP 138/82
== END 2024-05-25 19:50 | disposition home or self-care (01) ==
LOC: EMR 15:07
PROVIDERS: Physician Assistant; EMERGENCY PHYSICIAN Emergency Medicine; FAMILY PHYSICIAN Internal Medicine
DX: R53.83 Other fatigue (principal); E27.40 Unspecified adrenocortical insufficiency; I10 Essential (primary) hypertension; Z87.19 Personal history of other diseases of the digestive system
CPT/HCPCS: 99283; 96374; 96375; 96361; 71046; 80053; 81003; 81015; 82533; 85025; 87502; 87811

== ENCOUNTER 2024-06-22 06:14 | Inpatient (IN) | payer MEDICARE, OTHER, SELFPAY ==
[2024-06-17 09:21] VITALS: BMI 32.5
[2024-06-17 09:56] LABS: % Basophils 1.6 % (0-2); % Eosinophils 3.4 % (0-6); % Immature Granulocytes 0.2 % (0-0.5); % Lymphocytes 35.1 % (20.5-51.1); % Monocytes 9.2 % (1.7-9.3); % Neutrophils 50.5 % (42.2-75.2); Absolute Basophils 0.1 10^3/uL (0-0.2); Absolute Eosinophils 0.2 10^3/uL (0-0.7); Absolute Lymphocytes 1.6 10^3/uL (1.2-3.4); Absolute Monocytes 0.4 10^3/uL (0.1-0.6); Absolute Neutrophils 2.3 10^3/uL (1.4-6.5); Hematocrit 40.3 % (39.0-52.0); Hemoglobin 13.4 g/dL (13.0-18.0); Mean Corp Hgb Conc. 33.3 g/dL (33.0-37.0); Mean Corpuscular Hgb 28.2 pg (27.0-31.0); Mean Corpuscular Volume 84.7 fL (80.0-94.0); Mean Platelet Volume 9.3 fL (7.4-10.4); Nucleated Red Blood Cells % 0 % (-); Platelet Count 165 10^3/uL (130-400); Red Blood Cell Count 4.76 10^6/uL (4.70-6.10); Red Cell Dist. Width 13.9 % (11.5-14.5); White Blood Cell Count 4.5 10^3/uL (4.8-10.8)
[2024-06-17 10:04] LABS: INR 0.97; PT 13.3 Sec (11.4-14.6)
[2024-06-17 10:06] LABS: APTT 31.2 Sec (23.4-35.0)
[2024-06-17 10:11] LABS: Blood Urea Nitrogen 24 mg/dl (9-20); Calcium 9.4 mg/dl (8.4-10.2); Carbon Dioxide 31 mmol/L (22-30); Chloride 102 mmol/L (98-107); Estimated Creatinine Clearance 105 ml/min; Glucose 91 mg/dl (70-99); Potassium 4.5 mmol/L (3.5-5.1); Sodium 141 mmol/L (135-145); eGFR > 60.00
[2024-06-22] VITALS (13 sets, daily range): BP systolic 107–141; BP diastolic 57–90; BMI 32.3
[2024-06-22] MEDS: NSS 500 IV (06:45)
[2024-06-22] MEDS: BACTROBAN NASAL 1 GRAM NASAL (07:00)
[2024-06-22] MEDS: PERIDEX 0.12% ORAL RINSE 15 ML PO (07:00)
[2024-06-22 07:13] LABS: INR 1.06; PT 14.1 Sec (11.4-14.6)
[2024-06-22 07:14] LABS: APTT 32.6 Sec (23.4-35.0)
--- NOTE | 2024-06-22 07:16 | W.SUR.PREOP ---
Pre-Operative Surgical Note
-
I have examined this patient prior to the performance of the scheduled procedure.
The patient's condition is unchanged from the time of the current History and
Physical and the patient is able to undergo the scheduled procedure.
--- NOTE | 2024-06-22 07:21 | PTCARENOTE ---
Dr Tillman, Dr Garcia, Jazmin BAILEY & Kristi BAILEY all made aware of the perioperatve recommendations for hydrocortisone brought in by the pt from Dr Corinne Hicks. Specific instruction sheet labeled and placed on pt's record.
[2024-06-22] MEDS: SUBLIMAZE 50 MCG IV ×2 (09:55→10:14)
[2024-06-22 10:20] LABS: Blood Urea Nitrogen 22 mg/dl (9-20); Calcium 8.3 mg/dl (8.4-10.2); Carbon Dioxide 25 mmol/L (22-30); Chloride 105 mmol/L (98-107); Estimated Creatinine Clearance > 125 ml/min; Glucose 112 mg/dl (70-99); Potassium 3.9 mmol/L (3.5-5.1); Sodium 140 mmol/L (135-145); eGFR > 60.00
[2024-06-22] MEDS: NSS 1000 IV ×2 (10:31→22:47)
[2024-06-22 10:37] LABS: Hematocrit 37.5 % (39.0-52.0); Hemoglobin 12.1 g/dL (13.0-18.0); Mean Corp Hgb Conc. 32.3 g/dL (33.0-37.0); Mean Corpuscular Hgb 27.7 pg (27.0-31.0); Mean Corpuscular Volume 85.8 fL (80.0-94.0); Mean Platelet Volume 9.1 fL (7.4-10.4); Platelet Count 137 10^3/uL (130-400); Red Blood Cell Count 4.37 10^6/uL (4.70-6.10); White Blood Cell Count 8.1 10^3/uL (4.8-10.8)
--- NOTE | 2024-06-22 10:39 | OR.RPT ---
Operative Report
Operative Report
PROCEDURE DATE: 06/22/2024
Preoperative diagnosis: Abdominal aortic aneurysm, nonruptured.
Postoperative diagnosis: Same
Procedure:
1. Endovascular repair of abdominal aortic aneurysm with bifurcated modular endoprosthesis (Cook Zenith Endoprosthesis) with bilateral iliac limb extension.
2. Percutaneous bilateral common femoral artery closure.
3. Supervision and interpretation.
Surgeon: Primo
Diagnostic Medical Sonographer: ASHLEY Peres, required for all aspects of procedure including assistance with traction/countertraction, graft delivery/wire manipulation, assistance with closure.
Complications: None
Anesthesia: General
Indications for procedure:
Posterior saccular abdominal aortic aneurysm measuring just over 5 cm. Risk/benefits/alternatives of endovascular repair were fully discussed. Patient understood all wished to proceed.
Description of procedure:
Patient was identified brought to the operating room placed on the table in supine position. After the adequate administration of anesthesia and perioperative antibiotics he was prepped and draped in the standard surgical fashion. A standard
preoperative timeout was undertaken and everybody was in agreement the plan. Bilateral common femoral artery access was obtained under direct duplex ultrasound guidance. 6 Swiss sheaths were placed over 0.035 inch wires. Next, small 1 cm
incisions were made around the sheath entry sites bilaterally. Blunt dissection was undertaken with hemostats to facilitate percutaneous suture delivery. Next, using the ProGlide suture system, percutaneous sutures were deployed at the 10:00 and 2
o'clock position bilaterally in the standard fashion. Suture strands were tagged outside the skin. We exchanged for 11 Swiss sheaths bilaterally. Next using a KMP catheter, I guided wires into the supraceliac aorta from bilateral access sites.
On the right side I exchanged out for a pigtail catheter which was positioned in the juxtarenal aorta. From the left sided access I exchanged for a Lunderquist wire. The patient was given an appropriate dose of 9000 units of intravenous heparin.
The main body of the Cook Zenith endograft was brought into place which was a [id number]. This was first oriented under fluoroscopy, and then I exchanged my left-sided 11 Swiss sheath for the device which was advanced under fluoroscopy. Once
this was advanced to the level of the juxtarenal aorta, power injection aortography was obtained via the right-sided pigtail catheter. This was done in the appropriate obliquity based on the CT scan imaging prior. The origin of both renal arteries
were marked on the screen, the left renal artery appeared minimally inferior. I then positioned the endograft such that the most superior portion of the fabric would be positioned at the level of the renal arteries. I initially began unsheathing
the device slightly higher and then pulled it downward so that it lined up nicely with the inferior edge of the renal arteries or about 1 mm below that height to avoid any coverage. After deploying the first 2 covered stents, I was very happy with
the positioning, and therefore continue to on sheath until the contralateral gate was on sheath. Prior to unsheathing to that level, I did withdraw the pigtail catheter downward. Once unsheathed to the level of the contralateral gate, I then
confirmed that I was happy with the positioning, and then released the proximal constraint/trigger wire, and then unsheathed the bare-metal stents by advancing the top.
At this point, I exchanged the pigtail catheter from the right sided access over a Glidewire for a KMP catheter. Then using the Glidewire and a KMP catheter, I was able to cannulate the contralateral gate. I advanced a pigtail catheter over the
wire, pulling the wire back while the pigtail was in the main body and spitting it confirming that I was truly in the contralateral gate. Next, I advanced a Lunderquist wire through the pigtail catheter maintaining the pigtail catheter in its
position, and then performing a retrograde pelvic angiogram. As such I was able to gonzalo the position of the iliac bifurcation on the screen. My initial hope had been to place an iliac limb and then potentially extend with an aortic cuff due to the
slightly large caliber of the very distal common iliac artery. I felt that an iliac limb would seal more proximally, but for optimal coverage I thought placing aortic cuff would be beneficial. However, based on pigtail catheter measurements, I
felt that an aortic cuff if placed overlapping in the shortest available limb, would not get 1 full stent out and therefore would not flare enough. Therefore I felt using a 24 mm limb would be reasonable and obtain enough seal. And if over time
the common iliac artery dilated, we could manage endovascularly. Therefore, I then used as a contralateral limb here a Cook [id number] limb which was positioned just short of the iliac bifurcation and then unsheathed with maximal overlap in the
contralateral gate. Was very happy with its positioning.
Having completed this, turned our attention to the left side. Completed on sheath in the ipsilateral limb/gate. Next we released our final constraints/trigger wire. We then recaptured our top cap. And then the delivery device was walked out
leaving the sheath in place. Next, we similarly obliqued the gantry appropriately and obtain a retrograde iliac angiogram to identify the left iliac bifurcation which was then marked on the screen, and with a pigtail catheter in place to measure
the length of graft we need. For this side we therefore then used an ipsilateral iliac limb extension with a Cook [id number] with sufficient overlap in the ipsilateral gate. Now, a Coda balloon was inserted first up the right sided sheath and
the left to balloon mold proximal and distal seal zones as well as all overlap sites. Pigtail catheter was reinserted and completion power injection aortography obtained that demonstrated excellent proximal positioning of the stent graft with
excellent positioning of bilateral renal arteries. No evidence of type Ia endoleak was noted. Both common/external/internal iliac arteries filled very nicely. There appeared on delayed imaging to be potentially a type II endoleak from the [place]
vicinity. However if it filled it only filled the aneurysm sac medially slightly on only delayed imaging. Initially it appeared there was some contrast on delayed imaging at the crotch of the aortic bifurcation, however no definitive type 1b
endoleak was noted. Therefore, just to be certain, we then reballooned the right iliac limb to confirm no type Ib endoleak. Completion angiogram demonstrated no evidence of type Ib endoleak. At this point were very satisfied. I exchanged the
pigtail catheter out for a Lunderquist wire.
Next, I sequentially removed the sheaths while cinching down the percutaneous sutures. This was initially done on the right side and then on the left. On either side, once hemostasis was noted the wire was then withdrawn, the knot was tightened
with a knot pusher. Hemostasis was confirmed. The knot was then locked and the suture strands trimmed. This was done as noted on the right initially and then on the left. Hemostasis was fully achieved bilateral groins with good femoral pulses
bilaterally. The small skin incisions were then closed with 4-0 Monocryl subcuticular stitch and Dermabond was applied. Patient tolerated the procedure well. He had palpable 2+DP pulses bilaterally upon completion. He was transported to the
recovery room in good condition.
--- NOTE | 2024-06-22 11:00 | PTCARENOTE ---
Pt received from PACU at 1045. Pt lying flat in bed. Pt alert and oriented x4. MANZO with equal strength throughout. Instructed on bedrest/keeping legs straight to prevent groin bleeding. Pt denies pain, shortness of breath, and nausea. SB with
prolonged QT with rates 40s-50s. BP 139/59. Bilateral radial and DP pulses palpable. No edema noted. POX 96% on 2L, titrated to RA, POX 94%. Lungs clear throughout. No cough noted. Abdomen soft, nontender. Hypoactive BS. Peidra catheter intact
draining clear yellow urine. Bilateral groin sites soft, nontender, approximated with skin glue. Left radial rachel, flushed, leveled, zeroed. Left hand 20g PIV, right wrist 18g PIV intact infusing NSS 80mL/hr. See MAR for medication administration.
See worklist for complete nursing assessment. Plan of care reviewed and patient in agreement.
[2024-06-22] MEDS: SOLU-CORTEF 25 MG IV ×3 (11:59→23:52)
--- NOTE | 2024-06-22 12:00 | PTCARENOTE ---
Pt reassessed. SB with prolonged QT with rates in the 40s-50s. BP 125/71. POX 100% on RA. B/l groin sites soft, nontender, NAIL PULLER. Pt rates groin pain 10/27-see JUL. Piedra continues to drain adequate amounts of clear yellow urine. Laura and PIV x2
intact. No other acute changes.
[2024-06-22] MEDS: ROXICODONE 5 MG PO ×2 (12:07→16:12)
[2024-06-22] MEDS: DILAUDID 0.5 MG IV ×3 (13:26→22:47)
[2024-06-22] MEDS: TYLENOL 650 MG PO (16:12)
--- NOTE | 2024-06-22 16:15 | PTCARENOTE ---
Pt reassessed. SB with PVCs on tele with rates in the 50s. BP 130/70. POX 97% on RA. B/l groin sites soft, no drainage. +pedal pulses. Rates b/l groin site pain 10/27-see JUL. Piedra continues to drain adequate amounts of clear yellow urine.
--- NOTE | 2024-06-22 17:07 | CON.INTV ---
Addendum entered and electronically signed by Houston Mathur MD 06/22/24 17:23:
Patient has also history of adrenal insufficiency on 7.5 mg of prednisone. Hydrocortisone regimen recommended by his waiter will be started.
Original Note:
Consultation
Consultation Request
Date/Time Consultation Requested: 06/22/2024
Date/Time Consultation Performed: 06/22/2024
Requesting Provider: Dr. Tillman
Performing Provider: Dr. Houston Sebastian
Reason for Consultation: Status post infrarenal abdominal aortic aneurysmRepair
Medical History
Past Medical History
Past Medical History: Other (See assessment and plan)
Social History
Tobacco: Non-smoker
Alcohol: None
Drug: None
Family History
Family History: Reviewed & Not Pertinent
Allergies / Home Medications
Allergies
Allergy/AdvReac Type Severity Reaction Status Date / Time
lisinopril Allergy COUGH Verified 06/22/24 06:24
Home Medications
�Medication �Instructions �Recorded �Confirmed �Last Taken �Type
atorvastatin 10 mg tablet 10 mg PO DAILY High cholesterol 03/14/21 06/22/24 06/21/24 07:00 History
amlodipine 5 mg tablet 5 mg PO DAILY Blood pressure #0 05/17/23 06/22/24 06/22/24 05:15 Rx
tabs
levothyroxine 137 mcg tablet 137 mcg PO DAILY Thyroid 12/29/23 06/22/24 06/22/24 05:15 History
losartan 50 mg tablet 75 mg PO DAILY Blood Pressure 12/29/23 06/22/24 06/22/24 05:15 History
acetaminophen 650 mg 650 mg PO Q8H PRN pain 04/23/24 06/22/24 06/21/24 21:00 History
tablet,extended release
prednisone 5 mg tablet 7.5 mg PO DAILY 06/15/24 06/22/24 06/21/24 07:00 History
Review of Systems
-
History Source: Patient
All other systems: Negative unless noted
Vitals / Labs / Diagnostic Testing
Vital Signs
Temp Pulse Resp BP Pulse Ox
98.0 F 53 12 130/70 95
06/22/24 16:00 06/22/24 16:00 06/22/24 16:00 06/22/24 16:00 06/22/24 16:00
Lab Data
06/22/24 09:46
06/22/24 09:46
Laboratory Results
06/22/24
06:54
PT 14.1
INR 1.06
APTT 32.6
Diagnostic Testing:
Physical Exam
-
HEENT: Normocephalic
Cardiovascular: S1/S2
Respiratory: Non-Labored Respirations
GI: Soft and Non Distended
Neurology: Awake, Oriented, AO x 3 and No Motor Deficits
Skin: Warm and Other (Groin incisions intact without hematoma.)
General: Comfortable
Assessment
-
Status post:Endovascular repair of abdominal aortic aneurysm with bifurcated modular endoprosthesis ([employer] Zenith Endoprosthesis) with bilateral iliac limb extension. 06/22/[address] Tillman.
-
Conditions present for admission:
Hyperlipidemia
Hypertension
Obstructive sleep apnea
History of melanoma
Assessment and plan:
Postoperative surgical intensive care unit monitoring
Supplemental oxygen as needed
Incentive spirometry
Aspiration precautions
Nebulizers if needed-currently not bronchospastic
Chest x-ray: Chest x-ray 06/17/2024- no acute abnormalities
Neuro and vascular checks per protocol.
Vascular surgery following-correspondence and operative notes reviewed
Monitor blood pressure
-Arterial line in place.
Hemodynamically stable
Follow hemoglobin
Follow blood sugars
Insulin supplementation as needed
DVT prophylaxis- Heparin SC
-
Early mobilization.
--- NOTE | 2024-06-22 17:08 | CM ---
spoke to pt in room, he is prev indep, lives with is in a 2 story home with no steps to enter. he medrano sa walking stick he uses. he denies any dc planning needs. plan is for dc to home when medically stable
[2024-06-22] MEDS: HEPARIN 5000 UNITS SC (20:11)
--- NOTE | 2024-06-22 20:27 | PTCARENOTE ---
received patient from previous rn. pt AAOx4, VSS, pt Sinus ashley w/ prolonged QT per tele monitor, HR 50s, +pulses, pox 91-93% on RA, lungs clear, +bs, chavez draining clear yellow urine, B/L groin sites intact, L rad a-line and PIVx2 intact, plan of
care discussed, questions encouraged.
[2024-06-22] MEDS: MELATONIN 3 MG PO (22:47)
[2024-06-22] MEDS: MELATONIN PO (22:55)
--- NOTE | 2024-06-22 23:31 | PTCARENOTE ---
pt resting comfortably in bed. VSS, Sinus ashley per tele monitor, assessment remains unchanged
[2024-06-23] VITALS: BP 137/75
[2024-06-23] MEDS: ROXICODONE 5 MG PO ×2 (00:56→08:31)
[2024-06-23 01:32] VITALS: BP 133/78
[2024-06-23] MEDS: REGLAN 10 MG IV (01:56)
[2024-06-23 04:00] VITALS: BP 126/69
--- NOTE | 2024-06-23 04:10 | PTCARENOTE ---
VSS, pox 97% 2L NC, Sinus ashley per tele monitor, assessment remains unchanged
[2024-06-23 06:00] VITALS: BMI 32.8
[2024-06-23] MEDS: TYLENOL 650 MG PO (06:01)
[2024-06-23] MEDS: SOLU-CORTEF 25 MG IV ×2 (06:02→12:53)
[2024-06-23] MEDS: SYNTHROID 137 MCG PO (06:02)
[2024-06-23 06:21] LABS: INR 1.11; PT 14.6 Sec (11.4-14.6)
[2024-06-23 06:22] LABS: APTT 31.3 Sec (23.4-35.0)
[2024-06-23 06:24] VITALS: BP 165/78
[2024-06-23 06:26] LABS: Hemoglobin 11.4 g/dL (13.0-18.0); Mean Corp Hgb Conc. 33.5 g/dL (33.0-37.0); Mean Corpuscular Hgb 28.4 pg (27.0-31.0); Mean Corpuscular Volume 84.6 fL (80.0-94.0); Mean Platelet Volume 9.5 fL (7.4-10.4); Platelet Count 125 10^3/uL (130-400); Red Blood Cell Count 4.02 10^6/uL (4.70-6.10); Red Cell Dist. Width 14.1 % (11.5-14.5); White Blood Cell Count 7.1 10^3/uL (4.8-10.8)
[2024-06-23 06:33] LABS: Blood Urea Nitrogen 16 mg/dl (9-20); Calcium 8.6 mg/dl (8.4-10.2); Carbon Dioxide 25 mmol/L (22-30); Chloride 105 mmol/L (98-107); Estimated Creatinine Clearance > 125 ml/min; Glucose 111 mg/dl (70-99); Potassium 4.2 mmol/L (3.5-5.1); Sodium 138 mmol/L (135-145); eGFR > 60.00
[2024-06-23 08:00] VITALS: BP 156/79
--- NOTE | 2024-06-23 08:00 | PTCARENOTE ---
received patient from previous RN. AAOx3. VSS. Sinus aslhey HR 50s. +pulses. pox 93-95% on RA. lungs clear. +bs, chavez draining clear yellow urine. orders to d/c chavez this AM and A line. B/L groin sites intact. PIVx2 intact. for hopeful d/c today.
will continue to monitor.
[2024-06-23] MEDS: HEPARIN 5000 UNITS SC (08:27)
[2024-06-23] MEDS: LIPITOR 10 MG PO (08:27)
[2024-06-23] MEDS: COZAAR 75 MG PO (08:27)
[2024-06-23] MEDS: NORVASC 5 MG PO (08:27)
[2024-06-23] MEDS: LOW STRENGTH ASPIRIN 81 MG PO (08:27)
--- NOTE | 2024-06-23 08:42 | W.PN.VS ---
Today's Communication / Plan
-
Patient seen and examined at bedside with Dr. Gian Piedra III, below plan reviewed with attending.
Assessment/Plan
-
Assessment: 73-year-old male POD #1 EVAR with significant past medical history of adrenal insufficiency
Plan:
Discontinue IV fluids
Discontinue arterial line
Continue Piedra catheter
OOB to chair with progression to ambulation as tolerated
Patient follows with dye tub operator Dr. Corinne Hicks out of [facility], Fabiola Macdonald relayed specific plan that she would like enacted for his postoperative steroid management, orders placed per recommendations
Possible discharge later this afternoon pending tolerance of ambulation and ability to void spontaneously following Piedra catheter removal
Subjective Data
-
Date of Service: June 23, 2024
Patient seen examined bedside, endorses mild discomfort at bilateral groin sites but is well-managed with postoperative pain regimen; otherwise offers no complaints. Denies nausea, vomiting, fever, and chills. Denies chest pain or shortness of
breath.
Objective Data
-
Vital Signs
Temp Pulse Resp BP Pulse Ox
98.6 F 61 14 156/79 92
06/23/24 06:00 06/23/24 08:27 06/23/24 06:45 06/23/24 08:27 06/23/24 06:45
Intake and Output
06/22/24 06/23/24 06/24/24
06:59 06:59 06:59
Intake Total 1939 / 1939
Output Total 1495 / 1495
Balance 445 / 445
Intake:
Oral fluids 240 / 240
IV fluids (Total) 1700 / 1700
NSS 1700 / 1700
Output:
Urine, Piedra 1495 / 1495
Lab Results
06/23/24 05:54
06/23/24 05:54
Calcium 8.6 mg/dl (8.4-10.2) 06/23/24 05:54
Physical Exam
-
No apparent distress, resting bed comfortably
Sinus bradycardia on monitor patient with history of left bundle branch block, heart rate in the 50s
No dyspnea on room air
ABD nontender, nondistended
Bilateral groin puncture sites CDI with intact Exofin glue
Bilateral DP pulses +2 palpable
Piedra draining clear yellow urine
[2024-06-23 12:12] VITALS: BP 156/91
--- NOTE | 2024-06-23 12:51 | W.DS.TRANS ---
DC Summary - [employer]
-
Discharge Instructions:
Discharge Diagnosis/Procedures Endovascular repair of abdominal aortic aneurysm
with bifurcated modular endoprosthesis
Diet As tolerated
Activity No strenuous activity
Driving Restrictions No driving for 1 week
Bathing Restrictions OK to Shower
Instructions:
Stand-Alone Forms: DC Instr - Vascular OR
Changes to Home Medications: Yes
Discharge Medications:
DC Medications w/original date entered in [employer]
atorvastatin 10 mg tablet 10 mg PO DAILY High cholesterol 03/14/21
amlodipine 5 mg tablet 5 mg PO DAILY Blood pressure #0 tabs 05/17/23
levothyroxine 137 mcg tablet 137 mcg PO DAILY Thyroid 12/29/23
losartan 50 mg tablet 75 mg PO DAILY Blood Pressure 12/29/23
acetaminophen 650 mg tablet,extended release 650 mg PO Q8H PRN pain 04/23/24
prednisone 5 mg tablet 7.5 mg PO DAILY 06/15/24
aspirin 81 mg chewable tablet 81 mg PO DAILY #90 tabs 06/23/24
hydrocortisone 10 mg tablet 10 mg PO ONCE #5 tabs 06/23/24
hydrocortisone 10 mg tablet 25 mg (2.5 x 10 mg) PO Q6 Adrenal insufficiency #5 tabs 06/23/24
hydrocortisone 10 mg tablet 30 mg (3 x 10 mg) PO ONCE Adrenal insufficiency 5 days #15 tabs 06/23/24
Home Medication Changes
Added:
aspirin 81 mg chewable tablet 81 mg PO DAILY #90 tabs 06/23/24
hydrocortisone 10 mg tablet 10 mg PO ONCE #5 tabs 06/23/24
hydrocortisone 10 mg tablet 25 mg (2.5 x 10 mg) PO Q6 Adrenal insufficiency #5 tabs 06/23/24
hydrocortisone 10 mg tablet 30 mg (3 x 10 mg) PO ONCE Adrenal insufficiency 5 days #15 tabs 06/23/24
Hold until 06/29:
prednisone 5 mg tablet 7.5 mg PO DAILY 06/15/24
Pending Results: No
--- NOTE | 2024-06-23 13:54 | W.DCSUMMARY ---
Discharge Summary
Discharge Data
Date of Admission: 06/22/24
Date of Discharge: 06/23/24
-
Pending Results: No
Hospital Course
Attending: Brian Tillman MD
Consultants: Pulmonary medicine
Allergies: Lisinopril
Procedure with date: Endovascular repair of abdominal aortic aneurysm with bifurcated modular endoprosthesis ([employer] Zenith Endoprosthesis) with bilateral iliac limb extension. Percutaneous bilateral common femoral artery closure. 06/22/2024 by Brian
MD Primo
History of present illness: The patient is an 73-year-old male with multiple medical conditions including: Abdominal aortic aneurysm, adrenal insufficiency following treatment for melanoma, hypertension, hyperlipidemia, and obstructive sleep apnea.
Patient presented on 06/22/2024 for scheduled procedure with Dr. Brian Tillman. Patient presented at baseline health with no reports of recent illness or trauma.
Hospital Course: Briefly, the patient underwent scheduled endovascular pair of abdominal aortic aneurysm without complications, and recovered in PACU. Following recovery phase one and two patient was transferred to intensive care unit per protocol
for continued hemodynamic monitoring. Supervisor Inventory Merchandising consulted to aid in medical management from a critical care perspective. Patient provided explicit instructions for stress dosing of steroids for his adrenal insufficiency following procedure from
his loan services professional. Hydrocortisone was provided per recommendation of loan services professional. Patient remained hemodynamically stable. #1 (06/23/2024) Bilateral groin puncture sites clean, dry, and intact with Exofin glue intact. No evidence of hematoma.
Arterial line and IV fluids discontinued. Piedra catheter draining clear yellow urine which was discontinued. Patient tolerating p.o. diet and denied nausea or vomiting. Patient was able to spontaneously void following Piedra catheter removal.
Patient able to ambulate without difficulty or incident. Patient stable for discharge to home.
Prescriptions and follow up appointment are included in the DC summary tag writer note. All instructions were given to the patient in both written and verbal form and the patient expressed understanding.
Discharge Plan
-
Patient Disposition: Home (Routine Discharge)
Discharge Diagnosis/Procedures: Endovascular repair of abdominal aortic aneurysm with bifurcated modular endoprosthesis
Condition: Good
Diet: As tolerated
Activity: No strenuous activity
Driving Restrictions: No driving for 1 week
Bathing Restrictions: OK to Shower
Stand Alone Forms: DC Instr - Vascular OR
Referrals:
Dale Lr DO [Primary Care Provider] -
Mesha Umanzor CRNP [Specified Professional Personl] - 07/07/24 10:45 am
Additional Discharge Medication Instructions: This is the steroid medication regimen for your adrenal insufficiency that your loan services professional Dr. Corinne Hicks recommended any questions or concerns please call her office:
06/23/2024 - (Saturday) Take 25mg of hydrocortisone by mouth at 6 PM
06/24/2024- (Saturday) Take 25 mg of hydrocortisone by mouth at midnight (this will be your last dose of 25 mg), then when you wake up you will take 30 mg by mouth of hydrocortisone and then at 3 PM you will take 10 mg of hydrocortisone by mouth
06/25/2024-06/28/24- () When you wake up you will take 30 mg by mouth of hydrocortisone and then at 3 PM you will take 10 mg of hydrocortisone by mouth
06/29/24- (Saturday) You will resume your routine dose of prednisone
Prescriptions:
New
aspirin 81 mg Tablet,Chewable
81 mg PO DAILY Qty: 90 0RF
hydrocortisone 10 mg Tablet
25 mg PO Q6 Qty: 5 0RF
Rx Instructions:
TAKE AT 6 PM TODAY AND MIDNIGHT
hydrocortisone 10 mg tablet
30 mg PO ONCE 5 Days Qty: 15 0RF
Rx Instructions:
TAKE ONCE A DAY FOR 5 DAYS WHEN YOU WAKE UP
hydrocortisone 10 mg tablet
10 mg PO ONCE Qty: 5 0RF
Rx Instructions:
TAKE AT 3 PM
Continued
atorvastatin 10 MG tablet
10 mg PO DAILY
amlodipine 5 MG tablet
5 mg PO DAILY Qty: 0 0RF
losartan 50 mg Tablet
75 mg PO DAILY
levothyroxine 137 mcg Tablet
137 mcg PO DAILY
acetaminophen 650 mg Tablet Extended Release
650 mg PO Q8H PRN (Reason: pain)
Held
prednisone 5 mg Tablet
7.5 mg PO DAILY
Hold Instructions: Resume on 06/29/24. Resume your home medication prednisone as you normally would following the prescribed postoperative 6-day course your loan services professional has recommended
Discharge Orders:
Discharge Patient (As Directed); Ordered 06/23/24
Ordered By: Kristi Parsons
Care Plan Goals
Care Plan Goals:
Problem: Readiness for enhanced knowledge related to diagnosis and treatment plan
Goal: Understand your diagnosis and treatment plan needs, including medications if applicable.
Instructions: Know your diagnosis, underlying causes and treatment plan options, including medications if applicable. Consult with your health care team to learn about your diagnosis and treatment plan, including medications if applicable.
Discharge Date and Time
Print Language: LUX[place]GISH
--- NOTE | 2024-06-23 14:47 | W.PN.UPDATE ---
Update Note
Progress Note Update
Patient discharged today.
Critical care team signed off.
== END 2024-06-23 12:00 | disposition home or self-care (01) | DRG 269 ==
LOC: CVICU 06:14
PROVIDERS: Nurse Practitioner; ADMITTING PHYSICIAN Surgery Vascular Surgery; CONSULT PHYSICIAN Internal Medicine Critical Care Medicine; PRIMARYCARE PHYSICIAN Internal Medicine
PROC: 04V03DZ Restriction of Abdominal Aorta with Intraluminal Device, Percutaneous Approach (ICD-10-PCS; 2024-06-22)
DX: I71.43 Infrarenal abdominal aortic aneurysm, without rupture (principal); E27.40 Unspecified adrenocortical insufficiency; Z79.52 Long term (current) use of systemic steroids; E78.5 Hyperlipidemia, unspecified; I10 Essential (primary) hypertension; G47.33 Obstructive sleep apnea (adult) (pediatric); Z85.820 Personal history of malignant melanoma of skin
CPT/HCPCS: 34705; 36415; 71046; 80048; 85025; 85027; 85610; 85730; 86850; 86900; 86901; C1760; C1769; C1874; C1892; C1894; C2628; Q9967

== ENCOUNTER → 2024-07-09 08:21 | Outpatient (REF) | payer MEDICARE, OTHER, SELFPAY ==
[2024-07-09 10:13] LABS: Blood Urea Nitrogen 21 mg/dl (9-20); Calcium 9.3 mg/dl (8.4-10.2); Carbon Dioxide 31 mmol/L (22-30); Chloride 102 mmol/L (98-107); Glucose 91 mg/dl (70-99); Potassium 4.4 mmol/L (3.5-5.1); Sodium 141 mmol/L (135-145); eGFR > 60.00
== END ==
LOC: REG 08:21
PROVIDERS: ATTENDING PHYSICIAN Surgery Vascular Surgery; FAMILY PHYSICIAN Internal Medicine
DX: Z01.812 Encounter for preprocedural laboratory examination (principal)
CPT/HCPCS: 36415; 80048

== ENCOUNTER → 2024-07-15 07:42 | Outpatient (REF) | payer MEDICARE, OTHER, SELFPAY | LOC: RAD 07:42 | PROVIDERS: ATTENDING PHYSICIAN Registered Nurse; FAMILY PHYSICIAN Internal Medicine | DX: I71.43 Infrarenal abdominal aortic aneurysm, without rupture (principal) | CPT/HCPCS: 74174; Q9967 ==

== ENCOUNTER 2024-08-29 11:59 | Emergency (ER) | payer MEDICARE, OTHER, SELFPAY ==
[2024-08-29 12:00] VITALS: BP 141/70
--- NOTE | 2024-08-29 12:14 | EDRN ---
Rochelle Olivera PA in room w/ pt.
--- NOTE | 2024-08-29 12:14 | ED.GENMED ---
History of Present Illness
General
Chief Complaint: Head Injury
Source: patient
Time Seen by Provider: 08/29/24 12:08
History of Present Illness
History of Present Illness:
73-year-old male with past medical history of previous AAA, hypertension, hyperlipidemia, previous melanoma, adrenal insufficiency on chronic steroids presenting to the emergency department for evaluation after he was walking with his dog when his
dog cut in front of him causing him to fall to the side and into a small ditch and sustained minor head injury with superficial abrasion/hematoma. Patient states he felt a little bit dazed following the fall but states no loss of consciousness,
vomiting, headache or any other injury. Patient denies any use of anticoagulant. States that currently he feels he is in his usual state of health. He did not take any medications prior to arrival. He is unsure of his last tetanus vaccine.
Past History
Past History
ED Past Medical History: Cancer, HTN, Hypercholesterolemia, Other (AAA) and Other (Adrenal insufficiency); Negative Asthma or NIDDM
ED Past Surgical History: Bowel resection, Orthopedic and Other (Hemorrhoids)
Social History
Tobacco: Non-smoker
Alcohol: Occasional
Drug: None
Personal:
Living: with family
Employment: Employed
Family History
Family History: Other (reviewed and noncontributory)
Review of Systems
Review of Systems
All Other Systems: ROS reviewed and negative except as documented in HPI and ROS
Phy Exam
Physical Exam
Physical Exam:
GENERAL: Alert , in no apparent distress
EYE: conjunctiva clear
Head: Small hematoma to the right parietal region with small abrasion but no laceration appreciated. No active bleeding
NECK: Supple, no midline tenderness
ENT: mmm.
LUNGS: no acute respiratory distress
NEUROLOGICAL: Alert and oriented
SKIN: Warm and dry, skin intact.
MUSCULOSKELETAL: well perfused. No signs of trauma
PSYCH: Normal and appropriate interaction.
Scores
Heart Failure Risk
Heart Failure Risk Score: Not Applicable
Heart Score for Chest Pain Patients
STEMI patient?: Not applicable
Withdrawal Assessment of Alcohol
Withdrawal Assessment Completed?: Not applicable
Course
Orders/Labs/Results
Orders:
Orders
08/29/24 12:15
Tetanus/Diphth/Acelpertussis [Adacel] 0.5 ml IM .ONCE ONE
Vital Signs
Initial and Last Documented VS:
Initial Vital Signs
Temp Pulse Resp BP Pulse Ox
98.1 F 60 18 141/70 97
08/29/24 12:00 08/29/24 12:00 08/29/24 12:00 08/29/24 12:00 08/29/24 12:00
Last Documented Vital Signs
Temp Pulse Resp BP Pulse Ox
98.1 F 60 18 141/70 97
08/29/24 12:00 08/29/24 12:00 08/29/24 12:00 08/29/24 12:00 08/29/24 12:00
MDM/Problems Addressed
Differential Diagnosis Includes:
Abrasion/contusion, hematoma, intracranial bleeding, concussion
MDM/Problems Addressed:
73-year-old male presenting the ER for evaluation following a minor head injury following an accidental fall when patient's dog caused him to trip. Patient does have a small hematoma with abrasion but no large laceration or active bleeding. Area
was irrigated and at this time there is no suturable or wound repair required. Discussed CT imaging with the patient who feels he does not need any imaging at this point. Patient also concerned due to his immunocompromise state about the wound and
is requesting an antibiotic for a few days as preventative which I do think is reasonable. Will prescribe a 5-day course of Keflex. Advised Tylenol/NSAIDs as needed for pain. Patient aware of return precautions to the ER. Otherwise stable for
discharge home. Will update patient's tetanus prior to discharge.
Chronic conditions affecting care: Immunosuppressed
*Pulse Oximetry
Patient hypoxic: no
*Critical Care Note
Total Time (30-74mins, 75-104mins- exclusive of procedures): Not Applicable
ED Attending Note
-
Portions of this chart may have been created with voice recognition software.� Occasional wrong word or��sound alike� substitutions may have occurred due to the inherent limitations of voice recognition software.
Discharge Plan
Departure
Patient Disposition: Home (Routine Discharge)
Date of Disposition: 08/29/24
Time of Disposition: 12:14
Patient with high blood pressure during this ER visit?: Yes
Discharge Problem:
Contusion of head
Instructions: Head Injury in Adults (DC)
Prescriptions:
New
cephalexin 500 mg tablet
500 mg PO BID 5 Days Qty: 10 0RF
No Action
atorvastatin 10 MG tablet
10 mg PO DAILY
amlodipine 5 MG tablet
5 mg PO DAILY Qty: 0 0RF
losartan 50 mg Tablet
75 mg PO DAILY
levothyroxine 137 mcg Tablet
137 mcg PO DAILY
acetaminophen 650 mg Tablet Extended Release
650 mg PO Q8H PRN (Reason: pain)
prednisone 5 mg Tablet
7.5 mg PO DAILY
aspirin 81 mg Tablet,Chewable
81 mg PO DAILY Qty: 90 0RF
Interventions
Interventions:
*Risk Screen - Suicide Last Done: 08/29/24 12:00
*General Assessment Last Done: 08/29/24 12:27
*Neglect/Abuse Screening Last Done: 08/29/24 12:00
*ED- Fall Risk Assessment Last Done: 08/29/24 12:27
*ED COVID-19 Vaccine History Last Done: 08/29/24 12:27
*Nursing Disposition Last Done: 08/29/24 13:00
ED- Neurological Assessment Last Done: 08/29/24 12:27
ED-Skin Assessment Last Done: 08/29/24 12:30
Discharge Date and Time
Discharge Date/Time: 08/29/24 13:00
Print Language: [id number]
[2024-08-29] MEDS: ADACEL 0.5 ML IM (12:23)
[2024-08-29 12:27] VITALS: BMI 30.4
--- NOTE | 2024-08-29 12:45 | EDRN ---
Head cleansed extensively w/ NSS and water and all blood removed then area dressed w/ double antibiotic claudia. Pt has a triangular abrasion on top of head more posterior in location that is 1.5 x 1.5 cm.
--- NOTE | 2024-08-29 13:00 | EDRN ---
Pt is immunosuppressed due to immunotherapy for melanoma. Pt asked about an antibiotic and this RN TT'd Rochelle COLE who ordered a couple of days of keflex. RN just reviewed w/ w/ pt.
== END 2024-08-29 13:00 | disposition home or self-care (01) ==
LOC: EMR 11:59
PROVIDERS: EMERGENCY PHYSICIAN Emergency Medicine; FAMILY PHYSICIAN Internal Medicine
DX: S00.03XA Contusion of scalp, initial encounter (principal); S00.01XA Abrasion of scalp, initial encounter; W19.XXXA Unspecified fall, initial encounter; Y93.K1 Activity, walking an animal; E78.00 Pure hypercholesterolemia, unspecified; I10 Essential (primary) hypertension; E27.40 Unspecified adrenocortical insufficiency; Z87.19 Personal history of other diseases of the digestive system; Z79.52 Long term (current) use of systemic steroids; Z23 Encounter for immunization
CPT/HCPCS: 99282; 90471; 90715

== ENCOUNTER → 2025-02-08 06:32 | Outpatient (REF) | payer MEDICARE, OTHER, SELFPAY | LOC: RAD 06:32 | PROVIDERS: ATTENDING PHYSICIAN Surgery Vascular Surgery; FAMILY PHYSICIAN Internal Medicine | DX: I71.43 Infrarenal abdominal aortic aneurysm, without rupture (principal) | CPT/HCPCS: 76770 ==

== ENCOUNTER 2025-02-11 09:52 | Emergency (ER) | payer MEDICARE, OTHER, SELFPAY ==
[2025-02-11 09:54] VITALS: BP 160/89
[2025-02-11 10:11] VITALS: BP 151/80
[2025-02-11 10:12] VITALS: BP 151/80; BMI 31.6
--- NOTE | 2025-02-11 10:43 | ED.GENMED ---
History of Present Illness
General
Chief Complaint: Abdominal Pain
Time Seen by Provider: 02/11/25 10:23
Nursing documentation reviewed up to this point in time: agreed with
History of Present Illness
History of Present Illness:
74-year-old male presents to the ER for evaluation of left groin pain which has been present and worsening over the past several weeks. Patient states that he had heavy lifting and noticed an immediate bulge in his left lower abdomen. He states
that he is able to push it back and but has pain every time it pops out and when he pushes it back in. Patient had a normal bowel movement this morning. He has had no vomiting. He has been using Tylenol for his discomfort with some improvement.
He does have a prior history of abdominal surgery with Dr. Dinero and had schedule an appointment to see Dr. Dinero next week. Given persistent pain, he was referred to the ER for further evaluation. No urinary discomforts
Past History
Past History
ED Past Medical History: Cancer, HTN, Hypercholesterolemia, Other (AAA) and Other (Adrenal insufficiency); Negative Asthma or NIDDM
ED Past Surgical History: Bowel resection, Orthopedic and Other (Hemorrhoids)
Social History
Tobacco: Non-smoker
Alcohol: Occasional
Drug: None
Personal:
Living: with family
Employment: Employed
Family History
Family History: Other (reviewed and noncontributory)
Review of Systems
Review of Systems
Allergies reviewed?: Yes
Phy Exam
Physical Exam
Physical Exam:
Patient is awake, alert, appears in no acute distress, head is NCAT, PERRL, EOMI mucous membranes moist, conjunctiva pink, heart regular rate and rhythm without murmurs or ectopy, lungs are clear to auscultation without wheezes rales or rhonchi, no
JVD, abdomen is soft and nontender on palpation, small palpable defect present left lower quadrant/inguinal region with prominence on Valsalva, reducible, no overlying erythema, extremities without edema, GCS is 15
Course
Orders/Labs/Results
Orders:
Labs and imaging studies are considered but not ordered given overall benign appearance of patient and no evidence for obstructive symptoms.
Vital Signs
Initial and Last Documented VS:
Initial Vital Signs
Temp Pulse Resp BP Pulse Ox
98.4 F 53 18 160/89 96
02/11/25 09:54 02/11/25 09:54 02/11/25 09:54 02/11/25 09:54 02/11/25 09:54
Last Documented Vital Signs
Temp Pulse Resp BP Pulse Ox
98.5 F 46 9 142/73 99
02/11/25 10:12 02/11/25 11:15 02/11/25 11:15 02/11/25 11:00 02/11/25 11:15
MDM/Problems Addressed
Differential Diagnosis Includes:
Differential diagnosis to consider but not limited to hernia, strain, bowel obstruction along with other etiologies considered
*Pulse Oximetry
SaO2: 96
Oxygen Mode of Delivery: Room air
Patient hypoxic: no
*Critical Care Note
Total Time (30-74mins, 75-104mins- exclusive of procedures): Not Applicable
Update Note
Update Note:
Patient declining any need for analgesia at the current time. I discussed with patient benefit of use of cduo-[id number]-bampmjv truss for support until seen in follow-up with surgery as he will likely need hernia repair, no emergent indication at the
current time. Will discuss with his operative surgeon for dispo planning.
Patient was discharged given overall benign appearance. Dr. Dinero was able to reach out to me after patient had been discharged and would recommend referral to general surgery. General surgery is provided with patient information. I called the
patient to discuss with him need to follow-up with general surgery. He believes that the hernia is related more to a incisional hernia and would prefer to follow-up with Dr. Dinero in the office. He expressed understanding of my concerns and had
no questions at the current time
ED Attending Note
-
Portions of this chart may have been created with voice recognition software.� Occasional wrong word or��sound alike� substitutions may have occurred due to the inherent limitations of voice recognition software.
Discharge Plan
Departure
Patient Disposition: Home (Routine Discharge)
Date of Disposition: 02/11/25
Time of Disposition: 11:17
Patient with high blood pressure during this ER visit?: Yes
Discharge Problem:
Hernia
Instructions: Groin hernias, BLOOD PRESSURE
Prescriptions:
No Action
atorvastatin 10 MG tablet
10 mg PO DAILY
amlodipine 5 MG tablet
5 mg PO DAILY Qty: 0 0RF
losartan 50 mg Tablet
75 mg PO DAILY
levothyroxine 137 mcg Tablet
137 mcg PO DAILY
acetaminophen 650 mg Tablet Extended Release
650 mg PO Q8H PRN (Reason: pain)
prednisone 5 mg Tablet
7.5 mg PO DAILY
aspirin 81 mg Tablet,Chewable
81 mg PO DAILY Qty: 90 0RF
cephalexin 500 mg tablet
500 mg PO BID 5 Days Qty: 10 0RF
Referrals:
Shade Dinero MD [Active, ColoRectal] - Keep scheduled appt
Discharge Problem: Hernia
UNKNOWN - PT NOT,INTERVIEWE [Family Provider]
Activity Restrictions/Additional Instructions:
Continues in Tylenol as needed for pain. Please wear a TRUSS as available [id number] to help with support until you are seen in follow-up by your surgeon. Return to the ER for any concerns including but not limited to vomiting, inability to
have a bowel movement, inability to push the hernia back in or severe pain
Interventions
Interventions:
*Risk Screen - Suicide Last Done: 02/11/25 09:54
*General Assessment Last Done: 02/11/25 11:09
*Neglect/Abuse Screening Last Done: 02/11/25 09:54
*ED- Fall Risk Assessment Last Done: 02/11/25 10:14
*ED COVID-19 Vaccine History Last Done: 02/11/25 10:14
*Nursing Disposition Last Done: 02/11/25 11:27
DK-Nmubgs-Vlynrodnvr Assessment Last Done: 02/11/25 10:18
Discharge Date and Time
Discharge Date/Time: 02/11/25 11:29
Print Language: CYPRIOT
[2025-02-11 11:00] VITALS: BP 142/73
== END 2025-02-11 11:29 | disposition home or self-care (01) ==
LOC: EMR 09:52
PROVIDERS: EMERGENCY PHYSICIAN Emergency Medicine
DX: K46.9 Unspecified abdominal hernia without obstruction or gangrene (principal); I10 Essential (primary) hypertension; E78.00 Pure hypercholesterolemia, unspecified
CPT/HCPCS: 99282

== ENCOUNTER 2025-04-22 06:20 | Day surgery (SDC) | payer MEDICARE, OTHER, SELFPAY ==
[2025-04-06 14:01] VITALS: BMI 29.7
--- NOTE | 2025-04-07 18:02 | PTCARENOTE ---
Abnormal ECG completed on 04/06/[address] Garcia. No further orders at this time.
[2025-04-22] VITALS (8 sets, daily range): BP systolic 112–167; BP diastolic 53–76; BMI 29.7
[2025-04-22] MEDS: TYLENOL 1000 MG PO (12:34)
[2025-04-22] MEDS: NORMOSOL-R/PLASMALYTE-A 1000 IV (12:43)
--- NOTE | 2025-04-22 13:59 | HP.FOC2 ---
Focused History & Physical
Chief Complaint
HPI:
Chief Complaint: Left inguinal hernia
HPI / Indication for Planned Procedure: This is a 74-year-old male who presents with a a symptomatic left inguinal hernia. Will plan for a robotic, possible open left inguinal hernia repair with mesh.
Relevant Past Medical History: Negative
Relevant Social History: Negative
Relevant Family History: Negative
Relevant Past Surgical History: Positive for (EVAR, robotic sigmoid colectomy for diverticulitis)
Review of Systems
Review of Pertinent Systems: All Systems Negative
Medication
See Medication form for detailed medications: Yes
Medication List (including Herbals & OTC):
atorvastatin 10 mg tablet 10 mg PO DAILY High cholesterol 03/14/21
amlodipine 5 mg tablet 5 mg PO DAILY Blood pressure #0 tabs 05/17/23
levothyroxine 137 mcg tablet 137 mcg PO DAILY Thyroid 12/29/23
losartan 50 mg tablet 75 mg PO DAILY Blood Pressure 12/29/23
acetaminophen 650 mg tablet,extended release 650 mg PO Q8H PRN pain 04/23/24
prednisone 5 mg tablet 5 mg PO DAILY Anti-Inflammatory 06/15/24
Held on 06/23/24. Instructions: Resume on 06/29/24. Resume your home medication prednisone as you normally would following the prescribed postoperative 6-day course your electronics utility worker has recommended
Medications Reviewed: Yes
Allergies and Reactions
Patient has Allergies: Yes
Noted Allergies and Reactions:
Allergy/AdvReac Type Severity Reaction Status Date / Time
lisinopril AdvReac Intermediate COUGH Verified 04/13/25 08:52
Pertinent Physical Exam
All Other Systems: Negative
Head/Neck: Normal
Diagnosis / Assessment
This is a 74-year-old male who presents with a a symptomatic left inguinal hernia. Will plan for a robotic, possible open left inguinal hernia repair with mesh.
Plan / Procedure
This is a 74-year-old male who presents with a a symptomatic left inguinal hernia. Will plan for a robotic, possible open left inguinal hernia repair with mesh.
Anesthesia/Sedation to be done by Anesthesia Provider: Yes
--- NOTE | 2025-04-22 16:45 | W.IMMPOSTOP ---
Surgical Immed Post Op Note
-
Primary Surgeon: Randolph eDjesus MD
Assisting Surgeon: None
Pre-op Diagnosis: Right inguinal hernia
Post-op Diagnosis: Bilateral inguinal hernias
Procedure Performed: Robotic bilateral inguinal hernia repair with mesh
Anesthesia Type: General
Specimen / Cultures: None
Estimated Blood Loss: 7 cc
Complications: None
Operative Findings: Large bilateral indirect inguinal hernias, left greater than right. No direct or femoral components. Cord lipoma on the right reduced and removed. After achieving the critical view of the MPO bilaterally, the spaces were
reinforced with 2 large 3D Max Bard mid weight uncoated polypropylene mesh. There were no intra-abdominal adhesions.
--- NOTE | 2025-04-22 16:47 | OR.RPT ---
Addendum entered and electronically signed by Randolph Dejesus MD 04/22/25 16:54:
Addendum for details of the operation:
Before closure of the flaps, 3 g of Columba was sprayed liberally over the field to promote hemostasis.
Original Note:
Operative Report
Operative Report
Patient Name: Nabil Thomson
: 1950
Date of Operation: 04/22/2025
Preoperative Diagnosis: Reducible Inguinal hernia, left
Postoperative Diagnosis: Bilateral inguinal hernias
Procedure(s):
1. Robotic Inguinal Hernia Repair with mesh, bilateral (NASRIN approach)
2. 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
Surgeon(s):
Dr. Dejesus
Child Care Specialist(s):
DOUGLAS Baca
Anesthesia: General
Estimated Blood Loss: 7 cc
Urine Output: None
Drains/Lines/Implants: Large 3D Max Bard mid weight uncoated polypropylene mesh
Specimens: None
Indication for surgery: The patient has a history of groin pain and noted on exam to have a Left inguinal Hernia(s). Following review of therapeutic options they have elected to undergo a minimally invasive repair.
Operative Findings: Large bilateral indirect inguinal hernias, left greater than right. No direct or femoral components. Cord lipoma on the right reduced and removed. After achieving the critical view of the MPO bilaterally, the spaces were
reinforced with 2 large 3D Max Bard mid weight uncoated polypropylene mesh. There were no intra-abdominal adhesions.
Details of the operation:
The patient was brought to the Operating Room and placed in the supine position with the arms tucked. IV antibiotics were infused and Venodyne stockings placed. Following uneventful induction of general endotracheal anesthesia, an orogastric tube
was placed. The abdomen was prepped and draped in the usual sterile fashion. The abdomen was entered using a Veress technique which required 1 pass, pneumoperitoneum to 15 mmHg was obtained without difficulty. An 8mm trochar was passed through the
abdominal wall roughly 20 cm cephalad to the inguinal canal. We then confirmed that no inadvertent injury was made while passing the trocar or Veress needle. We then placed two additional 8 mm ports in the left upper and right upper quadrants. We
then docked the robot with a Prograsper in the left hand port and monopolar scissors in the right. On entry, 2 large bilateral inguinal hernias were readily visible. We then began by creating a flap on the right side at the level of the ASIS
laterally working our way medially to the medial umbilical fold and crossing over to the contralateral side. Staying onto the peritoneum we were able to circumferentially dissect around the hernia sac and and peel it off of the underlying spermatic
cord and testicular vessels, taking care to preserve them. Medially we identified the midline pubis as well as Eran's ligament and ensured to dissect 2 cm below the pubic rim over the bladder. After exposure of the entire myopectineal orifice we
identified and reduced: A large sized indirect inguinal hernia, no direct inguinal hernia, no femoral hernia, a small cord lipoma, which was removed. We performed the exact same dissection on the contralateral left side. Here we reduced a large
size indirect inguinal hernia, larger than the right side. Again there was no direct or femoral component. There was no appreciable cord lipoma on this side.
We then fixated a large 3D max mesh with a 2-0 Vicryl stitch at coopers medially and superior laterally x2 as well as together in the middle. The flap was then closed with a running 2-0 barbed monocryl suture ensuring that the tail was cut flush
with the medial fat pad so that no barbs were exposed. During the closure of the flap a Veress needle was inserted and 20 cc of quarter percent Marcaine was instilled. The area in the flap cavity was then evacuated of air confirming that the mesh
was flush and there were no folds. A small rent in the peritoneum was noted and closed with 2-0 Vicryl x3. All needles and instruments were then removed and the robot was undocked. The abdomen was then desufflated, and pneumoperitoneum evacuated.
All skin sites were then closed with 4-0 Monocryl followed by Dermabond. Counts were correct and overall, the patient tolerated the procedure well and was taken to the Recovery Room postoperatively in stable condition.
I was the attending physician and performed the procedure with assistance of the PA above. Their assistance was required due to the complexity of the procedure. During the procedure they assisted with port placement, instrument and needle
exchanges, and closure of the wound. I was present for all portions of the case, excluding skin closure.
Randolph Dejesus MD
[2025-04-22] MEDS: DILAUDID 0.5 MG IV (17:25)
[2025-04-22] MEDS: ROXICODONE 5 MG PO (18:46)
== END 2025-04-22 19:27 | disposition home or self-care (01) ==
LOC: SDS 06:20
PROVIDERS: ATTENDING PHYSICIAN Surgery
DX: K40.20 Bilateral inguinal hernia, without obstruction or gangrene, not specified as recurrent (principal)
CPT/HCPCS: 49650